=== PATIENT | female | born 1950 | race Caucasian/White ===

== ENCOUNTER 2021-03-12 | Inpatient (IN) ==
[2021-03-12] MEDS ORDERED: DEXTROSE 50% 25 GM/50 ML VIAL IV PRN (11:37)
[2021-03-12] MEDS ORDERED: GLUCAGON 1 MG VIAL IM PRN (11:37)
[2021-03-12] MEDS ORDERED: CLORAZEPATE 3.75 MG TABLET PO PRN (11:41)
[2021-03-12] MEDS ORDERED: MORPHINE 2 MG/1 ML SYRINGE IV PRN (11:42)
[2021-03-12] MEDS ORDERED: NITROGLYCERIN SL 0.4 MG TABLET SL PRN (11:42)
[2021-03-12 15:13] LABS: Albumin 2.9 G/DL (3.4-5.0); Bilirubin,Total 1.1 MG/DL (0.20-1.00); Calcium 9.1 MG/DL (8.5-10.1); Osmolality,Calculated 283.3 MOS/KG (273-304); Potassium 3.9 MMOL/L (3.5-5.1); Total Protein 7.3 G/DL (6.4-8.2)
[2021-03-12 15:16] LABS: Basophils # 0.1 10*3/uL (0.0-0.2); Eosinophils # 0.4 10*3/uL (0.0-0.87); Eosinophils % 3.5 % (0.00-10.9); Hematocrit 40.5 VOL% (35.7-47.0); Hemoglobin 12.1 GM/DL (12.0-16.0); Immature Granulocytes % 0.3 %; Immature Granulocytes Absolute 0.03 #; Lymphocytes # 1.5 10*3/uL (1.4-4.0); Lymphocytes % 15.5 % (21.3-54.2); Mean Corpuscular HGB Conc 29.9 GM/DL (32-36); Mean Corpuscular Volume 97.1 FL (87-102); Mean Platelet Volume 11.8 FL (9.6-12.0); Monocytes % 5.8 % (1.7-12.7); Neutrophils % 73.9 % (38.7-73.9); Platelet Count 262 T/CUMM (130-400); Red Blood Count 4.17 MC/CUMM (3.8-5.5); Red Cell Distribution Width 15.1 % (9.3-17.3); White Blood Count 9.9 T/CUMM (4-12)
[2021-03-12 15:58] LABS: ABG Base Excess 11.5 MMOL/L (-2.5-2.5); ABG HCO3 35.2 MMOL/L (20-26); ABG Oxygen Saturation 92.4 % (95-100); ABG PCO2 59.8 MM HG (35-48); ABG PH 7.418 (7.35-7.45); ABG PO2 64.3 MM HG (80-95); ABG TCO2 34.5 MMOL/L (23-27)
[2021-03-12] MEDS: CHLORHEXIDINE 4% SOLN 118 ML BOTTLE TOP SCH ×5 (16:50→21:40)
[2021-03-12] MEDS ORDERED: SODIUM CHLORIDE 0.9% 1,000 ML IV SCH (17:00)
[2021-03-12] MEDS: CHLORHEXIDINE 0.12% ORAL RINSE 60 ML BOTTLE SWISH/SPIT SCH (20:35)
[2021-03-13] MEDS ORDERED: VANCOMYCIN 1,000 MG VIAL ONE (04:17)
[2021-03-13] MEDS ORDERED: PAPAVERINE 60 MG/2 ML VIAL ONE (04:17)
[2021-03-13] MEDS ORDERED: VANCOMYCIN 500 MG VIAL ONE (04:17)
[2021-03-13] MEDS: CHLORHEXIDINE 0.12% ORAL RINSE 60 ML BOTTLE SWISH/SPIT SCH ×3 (04:50→21:35)
[2021-03-13] MEDS ORDERED: CEFUROXIME INJ 1,500 MG in SODIUM CHLORIDE 0.9% 100 ML IV ONE (05:00)
[2021-03-13] MEDS ORDERED: DIAZEPAM 5 MG TABLET PO ONE (05:00)
[2021-03-13] MEDS ORDERED: PANTOPRAZOLE 40 MG TABLET PO ONE (05:00)
[2021-03-13] MEDS ORDERED: ETOMIDATE 40 MG/20 ML VIAL IV ONE (05:20)
[2021-03-13] MEDS ORDERED: CALCIUM CHLORIDE 1,000 MG/10 ML VIAL IV ONE ×2 (05:20→11:22)
[2021-03-13] MEDS ORDERED: LIDOCAINE 2% 5 ML VIAL ONE ×2 (05:20→11:25)
[2021-03-13] MEDS ORDERED: MIDAZOLAM 10 MG/2 ML VIAL ONE ×3 (05:21)
[2021-03-13] MEDS ORDERED: SUFentanil 250 MCG/5 ML AMP ONE (05:21)
[2021-03-13] MEDS ORDERED: VECURONIUM 10 MG VIAL IV ONE (05:22)
[2021-03-13] MEDS ORDERED: ePHEDrine 50 MG/ML VIAL ONE (05:43)
[2021-03-13] MEDS ORDERED: SODIUM CHLORIDE 0.9% 1,000 ML IV ONE (05:45)
[2021-03-13] MEDS ORDERED: SEVOFLURANE 1 UNIT/15 MINUTE INH ONE (05:45)
[2021-03-13] MEDS ORDERED: MINERAL OIL/PETROLATUM OPH OINT 3.5 GM TUBE ONE (05:45)
[2021-03-13] MEDS ORDERED: HEPARIN/NACL 0.9% 2 UNITS/ML 1,000 UNIT/500 ML BAG IV ONE (05:45)
[2021-03-13] MEDS ORDERED: PHENYLEPHRINE 10 MG/1 ML VIAL IV ONE (05:45)
[2021-03-13] MEDS ORDERED: LACTATED RINGERS 1,000 ML IV ONE (05:45)
[2021-03-13] MEDS ORDERED: NITROGLYCERIN DRIP 50 MG/250 ML BOTTLE IV ONE (05:45)
[2021-03-13] MEDS ORDERED: SODIUM CHLORIDE 0.9% 250 ML IV ONE (05:45)
[2021-03-13 07:52] LABS: ABG Base Excess 10.9 MMOL/L (-2.5-2.5); ABG HCO3 34.7 MMOL/L (20-26); ABG Oxygen Saturation 99.8 % (95-100); ABG PCO2 47.6 MM HG (35-48); ABG PH 7.486 (7.35-7.45); ABG TCO2 32.3 MMOL/L (23-27); Glucose Heart Surgery 125 MG/DL (74-106); Hematocrit Heart Surgery 32.1 PERCENT (37-47); Hemoglobin Heart Surgery 10.4 G/DL (12.0-16.0); Ionized Calcium Arterial 1.15 MMOL/L (1.21-1.46); PCO2 Patient Temp Arterial 47.6 MMHG; PH Patient Temp Arterial 7.486; Patient Temperature 37 CELCIUS; Potassium Heart/CVR 3.9 MMOL/L (3.5-5.1); Sodium Heart/CVR 140 MMOL/L (135-145)
[2021-03-13 08:04] LABS: Bacteria,Urine Occasional /HPF (Few); Bilirubin,Urine Negative (Negative); Blood, Urine Moderate mg/dL (Negative); Glucose,Urine (UA) Negative (Negative); Ketones,Urine Negative (Negative); Mucus,Urine Occasional /LPF (Occasional); Nitrite,Urine Negative (Negative); Protein,Urine Negative; RBC,Urine 3 /HPF (0-4); Squamous Epithelial Cell,Urine Occasional /HPF (0-10); Urine Appearance CLEAR (Clear); Urine Color Yellow (Yellow); Urine Specific Gravity 1.012 (1.001-1.035); Urine Urobilinogen < 2.0 EU/DL (0.2-1.0)
[2021-03-13] MEDS ORDERED: ALBUTEROL 2.5 MG/3 ML NEB RESP TX ONE ×2 (08:17→10:58)
[2021-03-13] MEDS ORDERED: ALBUMIN 5% 25.0 GM/500 ML VIAL IV ONE (08:50)
[2021-03-13] MEDS ORDERED: POTASSIUM CHLORIDE RIDER 20 MEQ/100 ML PREMIX IV ONE (08:50)
[2021-03-13] MEDS ORDERED: PHENYLEPHRINE DRIP 40 MG/250 ML PREMIX IV ONE (08:50)
[2021-03-13 09:33] LABS: Hemoglobin Heart Surgery 7.5 G/DL (12.0-16.0); PCO2 Patient Temp Venous 38.3 MM HG; PH Patient Temp Venous 7.55; PO2 Patient Temp Venous 30.6 MM HG; Potassium Heart/CVR 3.4 MMOL/L (3.5-5.1); VBG Base Excess 9.6 MEQ/L (0-4); VBG HCO3 33.6 MEQ/L (24-28); VBG Oxygen Saturation 79.2 %; VBG PCO2 43.7 MMHG (41-51); VBG PH 7.504; VBG PO2 37.8 MMHG (17-40)
[2021-03-13 10:03] LABS: Hematocrit Heart Surgery 22.5 PERCENT (37-47); Hemoglobin Heart Surgery 7.2 G/DL (12.0-16.0); PCO2 Patient Temp Venous 35.7 MM HG; PH Patient Temp Venous 7.571; PO2 Patient Temp Venous 30.9 MM HG; Potassium Heart/CVR 3.1 MMOL/L (3.5-5.1); VBG Base Excess 10.3 MEQ/L (0-4); VBG HCO3 33.8 MEQ/L (24-28); VBG PCO2 41.3 MMHG (41-51); VBG PH 7.525; VBG PO2 38.2 MMHG (17-40); VBG Total CO2 32.2 MMOL/L
[2021-03-13 10:35] LABS: Hematocrit Heart Surgery 22.3 PERCENT (37-47); Hemoglobin Heart Surgery 7.1 G/DL (12.0-16.0); PCO2 Patient Temp Venous 41.5 MM HG; PH Patient Temp Venous 7.506; PO2 Patient Temp Venous 31.1 MM HG; VBG Base Excess 8.8 MEQ/L (0-4); VBG HCO3 32.2 MEQ/L (24-28); VBG Oxygen Saturation 66.3 %; VBG PCO2 41.5 MMHG (41-51); VBG PH 7.506; VBG PO2 31.1 MMHG (17-40)
[2021-03-13 11:17] LABS: ABG Base Excess 7.5 MMOL/L (-2.5-2.5); ABG HCO3 31.3 MMOL/L (20-26); ABG Oxygen Saturation 96.2 % (95-100); ABG PCO2 44.7 MM HG (35-48); ABG PH 7.464 (7.35-7.45); ABG PO2 75.1 MM HG (80-95); ABG TCO2 29.9 MMOL/L (23-27); Glucose Heart Surgery 331 MG/DL (74-106); Hematocrit Heart Surgery 24.5 PERCENT (37-47); Hemoglobin Heart Surgery 7.9 G/DL (12.0-16.0); PCO2 Patient Temp Arterial 44.7 MMHG; PH Patient Temp Arterial 7.464; PO2 Patient Temp Arterial 75.1 MM HG; Patient Temperature 37 CELCIUS; Potassium Heart/CVR 3.4 MMOL/L (3.5-5.1); Sodium Heart/CVR 136 MMOL/L (135-145)
[2021-03-13] MEDS ORDERED: DEXTROSE 50% 25 GM/50 ML SYRINGE IV ONE (11:24)
[2021-03-13] MEDS ORDERED: ALBUMIN 25% 25 GM/100 ML VIAL IV ONE (11:24)
[2021-03-13] MEDS ORDERED: HEPARIN 10,000 UNIT/10 ML VIAL ONE (11:25)
[2021-03-13] MEDS ORDERED: PROTAMINE SULFATE 250 MG/25 ML VIAL IV ONE (11:25)
[2021-03-13] MEDS ORDERED: MAGNESIUM SULFATE 5 GM/10 ML VIAL IV ONE (11:25)
[2021-03-13] MEDS ORDERED: methylPREDNISolone SOD SUC 1,000 MG/8 ML VIAL ONE (11:25)
[2021-03-13] MEDS ORDERED: MANNITOL 12.5 GM/50 ML VIAL IV ONE (11:25)
[2021-03-13] MEDS ORDERED: POTASSIUM CHLORIDE 20 MEQ/10 ML VIAL ONE (11:26)
[2021-03-13] MEDS ORDERED: PROTAMINE SULFATE 50 MG/5 ML VIAL IV ONE (11:26)
[2021-03-13] MEDS ORDERED: FUROSEMIDE 20 MG/2 ML VIAL ONE (11:26)
[2021-03-13] MEDS ORDERED: SODIUM BICARBONATE 50 MEQ/50 ML VIAL IV ONE (11:26)
[2021-03-13] MEDS: SODIUM CHLORIDE 0.45% 1,000 ML IV SCH ×2 (12:15)
[2021-03-13] MEDS: LACTATED RINGERS 1,000 ML IV PRN ×3 (12:30→18:25)
[2021-03-13] MEDS ORDERED: POTASSIUM CHLORIDE RIDER 10 MEQ/100 ML PREMIX IV PRN (12:33)
[2021-03-13] MEDS ORDERED: CALCIUM CHLORIDE 1,000 MG/10 ML SYRINGE IV PRN (12:33)
[2021-03-13] MEDS ORDERED: PHENYLEPHRINE DRIP 40 MG/250 ML PREMIX IV PRN (12:33)
[2021-03-13] MEDS ORDERED: MAGNESIUM SULF RIDER 2 GM/50 ML PREMIX IV PRN (12:33)
[2021-03-13] MEDS ORDERED: MIDAZOLAM 10 MG/2 ML VIAL IV PRN (12:33)
[2021-03-13] MEDS ORDERED: ACETAMINOPHEN 650 MG SUPP RECTAL PRN (12:33)
[2021-03-13] MEDS ORDERED: DEXTROSE 50% 25 GM/50 ML SYRINGE IV PRN ×2 (12:33)
[2021-03-13] MEDS ORDERED: VECURONIUM 10 MG VIAL IV PRN ×2 (12:33)
[2021-03-13] MEDS ORDERED: ONDANSETRON 4 MG/2 ML VIAL IV PRN (12:33)
[2021-03-13] MEDS ORDERED: INSULIN REGULAR 100 UNIT/ML IV ONE (12:33)
[2021-03-13] MEDS ORDERED: MIDAZOLAM 2 MG/2 ML VIAL IV PRN (12:33)
[2021-03-13] MEDS ORDERED: NITROPRUSSIDE 100 MG in DEXTROSE 5% 250 ML IV PRN (12:33)
[2021-03-13] MEDS ORDERED: LACTATED RINGERS 250 ML IV PRN (12:33)
[2021-03-13] MEDS ORDERED: ALBUMIN 5% 12.5 GM/250 ML VIAL IV PRN (12:33)
[2021-03-13] MEDS ORDERED: MAGNESIUM SULF RIDER 4 GM/100 ML PREMIX IV PRN (12:33)
[2021-03-13] MEDS ORDERED: CHLORHEXIDINE 4% SOLN 118 ML BOTTLE TOP PRN (12:33)
[2021-03-13] MEDS ORDERED: INSULIN REGULAR 100 UNIT/ML IV PRN (12:33)
[2021-03-13 12:36] LABS: ABG Base Excess 5.4 MMOL/L (-2.5-2.5); ABG HCO3 29.2 MMOL/L (20-26); ABG PCO2 49.3 MM HG (35-48); ABG PH 7.406 (7.35-7.45); ABG PO2 88.1 MM HG (80-95); ABG TCO2 28.4 MMOL/L (23-27); Glucose Heart Surgery 310 MG/DL (74-106); Hematocrit Heart Surgery 29.3 PERCENT (37-47); Hemoglobin Heart Surgery 9.5 G/DL (12.0-16.0); Potassium Heart/CVR 3.4 MMOL/L (3.5-5.1)
[2021-03-13 12:39] LABS: Basophils # 0.1 10*3/uL (0.0-0.2); Basophils % 0.3 % (0.0-0.8); Eosinophils % 0.2 % (0.00-10.9); Hematocrit 30.7 VOL% (35.7-47.0); Immature Granulocytes % 0.7 %; Immature Granulocytes Absolute 0.12 #; Lymphocytes # 0.9 10*3/uL (1.4-4.0); Lymphocytes % 4.9 % (21.3-54.2); Mean Corpuscular HGB Conc 30.3 GM/DL (32-36); Mean Corpuscular Volume 96.2 FL (87-102); Mean Platelet Volume 10.6 FL (9.6-12.0); Monocytes % 4.4 % (1.7-12.7); Neutrophils % 89.5 % (38.7-73.9); Platelet Count 224 T/CUMM (130-400); White Blood Count 17.6 T/CUMM (4-12)
[2021-03-13 12:40] LABS: Hemoglobin 9.3 GM/DL (12.0-16.0); Red Blood Count 3.19 MC/CUMM (3.8-5.5)
[2021-03-13] MEDS: POTASSIUM CHLORIDE RIDER 20 MEQ/100 ML PREMIX IV PRN ×3 (12:50→14:31)
[2021-03-13 12:54] LABS: CKMB % 9.4 %
[2021-03-13] MEDS: methylPREDNISolone SOD SUC 40 MG/1 ML VIAL IV SCH ×2 (12:54→21:36)
[2021-03-13 12:59] LABS: Albumin 2.7 G/DL (3.4-5.0); Bilirubin,Total 2.2 MG/DL (0.20-1.00); Calcium 9.5 MG/DL (8.5-10.1); High Sensitive Troponin I* 5445.3 ng/L (0-54); Osmolality,Calculated 291.4 MOS/KG (273-304); Potassium 3.5 MMOL/L (3.5-5.1); Total Protein 5.7 G/DL (6.4-8.2)
[2021-03-13 13:00] LABS: Band Neutrophils 8 % (0-10); Eosinophils 1 % (0-10); Lymphocytes 3 % (20-55); Segmented Neutrophils 84 % (50-85); Total Cells Counted 100
[2021-03-13 13:01] LABS: Anisocytosis Slight; Macrocytosis Slight; Microcytosis 1+; Platelet Estimate Normal; Polychromasia Few
[2021-03-13 13:13] LABS: INR 1.1; PT Patient Result 11.9 SECS (10.5-12.0); Partial Thromboplastin Time 23.4 SECS (23.8-32.1)
[2021-03-13 14:01] LABS: ABG Base Excess 3.4 MMOL/L (-2.5-2.5); ABG HCO3 27.5 MMOL/L (20-26); ABG Oxygen Saturation 99.4 % (95-100); ABG PCO2 49.5 MM HG (35-48); ABG PH 7.381 (7.35-7.45); ABG TCO2 26.7 MMOL/L (23-27); Glucose Heart Surgery 289 MG/DL (74-106); Hematocrit Heart Surgery 30.9 PERCENT (37-47); Potassium Heart/CVR 3.7 MMOL/L (3.5-5.1)
[2021-03-13] MEDS: INSULIN REGULAR DRIP 100 ML IV SCH (14:05)
[2021-03-13 17:02] LABS: ABG Base Excess 1.9 MMOL/L (-2.5-2.5); ABG HCO3 26.1 MMOL/L (20-26); ABG Oxygen Saturation 97.5 % (95-100); ABG PH 7.411 (7.35-7.45); ABG PO2 94.3 MM HG (80-95); ABG TCO2 24.3 MMOL/L (23-27); Glucose Heart Surgery 258 MG/DL (74-106); Potassium Heart/CVR 4.1 MMOL/L (3.5-5.1)
[2021-03-13] MEDS: DEXMEDETOMIDINE 200 MCG in SODIUM CHLORIDE 0.9% 48 ML IV PRN ×2 (17:10→19:29)
[2021-03-13] MEDS ORDERED: FUROSEMIDE 40 MG/4 ML VIAL ONE (18:18)
[2021-03-13] MEDS ORDERED: FUROSEMIDE 40 MG/4 ML VIAL IV ONE (18:22)
[2021-03-13 19:30] LABS: ABG Base Excess 4.3 MMOL/L (-2.5-2.5); ABG HCO3 28.3 MMOL/L (20-26); ABG Oxygen Saturation 94.6 % (95-100); ABG PCO2 38.8 MM HG (35-48); ABG PO2 68.2 MM HG (80-95); ABG TCO2 25.7 MMOL/L (23-27); Glucose Heart Surgery 240 MG/DL (74-106); Hemoglobin Heart Surgery 9.7 G/DL (12.0-16.0); Potassium Heart/CVR 4.1 MMOL/L (3.5-5.1)
[2021-03-13] MEDS: CEFUROXIME INJ 1,500 MG in SODIUM CHLORIDE 0.9% 100 ML IV SCH (19:37)
[2021-03-13 22:08] LABS: CKMB % 7.2 %
[2021-03-13 22:17] LABS: High Sensitive Troponin I* 10468.4 ng/L (0-54)
[2021-03-13 23:35] LABS: ABG Base Excess 7.8 MMOL/L (-2.5-2.5); ABG HCO3 31.5 MMOL/L (20-26); ABG Oxygen Saturation 93.3 % (95-100); ABG PCO2 37.1 MM HG (35-48); ABG PO2 60.6 MM HG (80-95); ABG TCO2 28.2 MMOL/L (23-27); Glucose Heart Surgery 185 MG/DL (74-106); Hematocrit Heart Surgery 29.5 PERCENT (37-47); Hemoglobin Heart Surgery 9.5 G/DL (12.0-16.0); Potassium Heart/CVR 4.1 MMOL/L (3.5-5.1)
[2021-03-14 01:02] LABS: ABG Base Excess 5.6 MMOL/L (-2.5-2.5); ABG HCO3 28.1 MMOL/L (20-26); ABG Oxygen Saturation 95.4 % (95-100); ABG PCO2 33.1 MM HG (35-48); ABG PH 7.547 (7.35-7.45); ABG PO2 70.1 MM HG (80-95); ABG TCO2 29.1 MMOL/L (23-27); Glucose Heart Surgery 162 MG/DL (74-106); Hemoglobin Heart Surgery 9.9 G/DL (12.0-16.0); Potassium Heart/CVR 4.1 MMOL/L (3.5-5.1)
[2021-03-14 03:26] LABS: ABG HCO3 29.4 MMOL/L (20-26); ABG Oxygen Saturation 95.8 % (95-100); ABG PCO2 38.1 MM HG (35-48); ABG PH 7.506 (7.35-7.45); ABG PO2 76.5 MM HG (80-95); ABG TCO2 30.6 MMOL/L (23-27); Glucose Heart Surgery 144 MG/DL (74-106); Hemoglobin Heart Surgery 10.8 G/DL (12.0-16.0); Potassium Heart/CVR 4.2 MMOL/L (3.5-5.1)
[2021-03-14 03:28] LABS: Basophils % 0.1 % (0.0-0.8); Hematocrit 32.6 VOL% (35.7-47.0); Hemoglobin 10.1 GM/DL (12.0-16.0); Immature Granulocytes % 0.4 %; Immature Granulocytes Absolute 0.07 #; Lymphocytes # 0.5 10*3/uL (1.4-4.0); Lymphocytes % 3.1 % (21.3-54.2); Mean Corpuscular Volume 93.1 FL (87-102); Mean Platelet Volume 11.3 FL (9.6-12.0); Monocytes % 2.8 % (1.7-12.7); Neutrophils % 93.6 % (38.7-73.9); Platelet Count 214 T/CUMM (130-400); Red Cell Distribution Width 15.9 % (9.3-17.3); White Blood Count 16.1 T/CUMM (4-12)
[2021-03-14 03:52] LABS: Albumin 2.9 G/DL (3.4-5.0); Bilirubin,Direct 0.3 MG/DL (0.0-0.20); Bilirubin,Total 1.6 MG/DL (0.20-1.00); CKMB % 5.7 %; Osmolality,Calculated 286.3 MOS/KG (273-304); Potassium 4.4 MMOL/L (3.5-5.1); Total Protein 5.8 G/DL (6.4-8.2)
[2021-03-14 04:05] LABS: High Sensitive Troponin I* 16418.2 ng/L (0-54)
[2021-03-14 04:27] LABS: Hypochromasia Slight; Lymphocytes 2 % (20-55); Microcytosis Slight; Platelet Estimate Adequate; Segmented Neutrophils 95 % (50-85); Total Cells Counted 100
[2021-03-14 04:31] LABS: ABG Base Excess 7.3 MMOL/L (-2.5-2.5); ABG HCO3 30.6 MMOL/L (20-26); ABG Oxygen Saturation 93.2 % (95-100); ABG PCO2 38.3 MM HG (35-48); ABG PO2 61.9 MM HG (80-95); ABG TCO2 31.7 MMOL/L (23-27); Glucose Heart Surgery 137 MG/DL (74-106); Hemoglobin Heart Surgery 10.8 G/DL (12.0-16.0); Potassium Heart/CVR 4.1 MMOL/L (3.5-5.1)
[2021-03-14 05:13] LABS: ABG Base Excess 8.4 MMOL/L (-2.5-2.5); ABG Oxygen Saturation 93.4 % (95-100); ABG PH 7.547 (7.35-7.45); ABG PO2 61.1 MM HG (80-95); ABG TCO2 28.1 MMOL/L (23-27); Glucose Heart Surgery 141 MG/DL (74-106); Hematocrit Heart Surgery 32.3 PERCENT (37-47); Hemoglobin Heart Surgery 10.5 G/DL (12.0-16.0); Potassium Heart/CVR 4.2 MMOL/L (3.5-5.1)
[2021-03-14] MEDS: methylPREDNISolone SOD SUC 40 MG/1 ML VIAL IV SCH ×3 (06:06→21:02)
[2021-03-14 06:36] LABS: ABG Base Excess 8.3 MMOL/L (-2.5-2.5); ABG Oxygen Saturation 96.5 % (95-100); ABG PCO2 37.9 MM HG (35-48); ABG PH 7.529 (7.35-7.45); ABG PO2 76.8 MM HG (80-95); ABG TCO2 28.4 MMOL/L (23-27); Glucose Heart Surgery 136 MG/DL (74-106); Hematocrit Heart Surgery 32.5 PERCENT (37-47); Hemoglobin Heart Surgery 10.5 G/DL (12.0-16.0); Potassium Heart/CVR 4.1 MMOL/L (3.5-5.1)
[2021-03-14] MEDS ORDERED: FUROSEMIDE 40 MG/4 ML VIAL IV ONE ×2 (07:39→18:43)
[2021-03-14] MEDS: HYDROmorphone 2 MG/1 ML VIAL IV PRN ×2 (08:26→16:15)
[2021-03-14] MEDS: CEFUROXIME INJ 1,500 MG in SODIUM CHLORIDE 0.9% 100 ML IV SCH ×2 (08:29→20:40)
[2021-03-14] MEDS: PANTOPRAZOLE 40 MG VIAL IV SCH (09:47)
[2021-03-14] MEDS: POTASSIUM CHLORIDE RIDER 20 MEQ/100 ML PREMIX IV PRN (09:47)
[2021-03-14] MEDS: carvediloL 3.125 MG TABLET PO SCH ×2 (09:47→22:54)
[2021-03-14] MEDS: ASPIRIN CHEW 81 MG TABLET PO SCH (09:50)
[2021-03-14] MEDS: CHLORHEXIDINE 0.12% ORAL RINSE 60 ML BOTTLE SWISH/SPIT SCH ×2 (09:50→21:01)
[2021-03-14 12:10] LABS: ABG Base Excess 7.1 MMOL/L (-2.5-2.5); ABG HCO3 30.8 MMOL/L (20-26); ABG Oxygen Saturation 92.4 % (95-100); ABG PO2 68.2 MM HG (80-95); ABG TCO2 29.4 MMOL/L (23-27); Glucose Heart Surgery 170 MG/DL (74-106); Hematocrit Heart Surgery 31.9 PERCENT (37-47); Hemoglobin Heart Surgery 10.3 G/DL (12.0-16.0)
[2021-03-14] MEDS: ALBUTEROL/IPRATROPIUM 3 ML NEB RESP TX SCH ×2 (13:18→18:17)
[2021-03-14] MEDS: INSULIN REGULAR DRIP 100 ML IV SCH (14:37)
[2021-03-14] MEDS: SODIUM CHLORIDE 0.45% 1,000 ML IV SCH ×2 (14:37)
[2021-03-14 15:36] LABS: CKMB % 5.4 %; High Sensitive Troponin I* 17373.2 ng/L (0-54)
[2021-03-14] MEDS: DEXMEDETOMIDINE 200 MCG in SODIUM CHLORIDE 0.9% 48 ML IV PRN (19:56)
[2021-03-14 20:51] LABS: ABG Base Excess 8.2 MMOL/L (-2.5-2.5); ABG HCO3 31.8 MMOL/L (20-26); ABG Oxygen Saturation 91.6 % (95-100); ABG PCO2 36.5 MM HG (35-48); ABG TCO2 28.1 MMOL/L (23-27); Glucose Heart Surgery 175 MG/DL (74-106); Hematocrit Heart Surgery 31.8 PERCENT (37-47); Hemoglobin Heart Surgery 10.3 G/DL (12.0-16.0); Potassium Heart/CVR 4.2 MMOL/L (3.5-5.1)
[2021-03-14] MEDS: INSULIN REGULAR 100 UNIT/ML SUBCUT SCH (21:01)
[2021-03-14] MEDS: ESCITALOPRAM 10 MG TABLET PO SCH (21:11)
[2021-03-14 23:26] LABS: ABG Base Excess 7.7 MMOL/L (-2.5-2.5); ABG HCO3 31.4 MMOL/L (20-26); ABG Oxygen Saturation 93.5 % (95-100); ABG PCO2 32.4 MM HG (35-48); ABG PH 7.572 (7.35-7.45); ABG PO2 64.6 MM HG (80-95); ABG TCO2 26.9 MMOL/L (23-27); Glucose Heart Surgery 178 MG/DL (74-106); Hematocrit Heart Surgery 32.1 PERCENT (37-47); Hemoglobin Heart Surgery 10.4 G/DL (12.0-16.0); Potassium Heart/CVR 4.6 MMOL/L (3.5-5.1)
[2021-03-15] MEDS: ALBUTEROL/IPRATROPIUM 3 ML NEB RESP TX SCH ×4 (00:14→19:40)
[2021-03-15] MEDS: INSULIN REGULAR 100 UNIT/ML SUBCUT SCH ×6 (00:51→21:06)
[2021-03-15 00:52] LABS: ABG Base Excess 7.3 MMOL/L (-2.5-2.5); ABG HCO3 31.1 MMOL/L (20-26); ABG Oxygen Saturation 95.4 % (95-100); ABG PCO2 42.1 MM HG (35-48); ABG PH 7.482 (7.35-7.45); ABG PO2 78.7 MM HG (80-95); ABG TCO2 28.4 MMOL/L (23-27); Glucose Heart Surgery 166 MG/DL (74-106); Hematocrit Heart Surgery 32.4 PERCENT (37-47); Hemoglobin Heart Surgery 10.5 G/DL (12.0-16.0); Potassium Heart/CVR 4.4 MMOL/L (3.5-5.1)
[2021-03-15 03:44] LABS: ABG Base Excess 7.1 MMOL/L (-2.5-2.5); ABG HCO3 30.9 MMOL/L (20-26); ABG Oxygen Saturation 95.4 % (95-100); ABG PCO2 46.5 MM HG (35-48); ABG PH 7.448 (7.35-7.45); ABG PO2 81.6 MM HG (80-95); ABG TCO2 29.1 MMOL/L (23-27); Basophils % 0.1 % (0.0-0.8); Glucose Heart Surgery 167 MG/DL (74-106); Hematocrit 31.6 VOL% (35.7-47.0); Hematocrit Heart Surgery 31.5 PERCENT (37-47); Hemoglobin Heart Surgery 10.2 G/DL (12.0-16.0); Immature Granulocytes % 0.7 %; Immature Granulocytes Absolute 0.14 #; Lymphocytes # 0.8 10*3/uL (1.4-4.0); Lymphocytes % 3.8 % (21.3-54.2); Mean Corpuscular HGB Conc 31.6 GM/DL (32-36); Mean Corpuscular Volume 92.4 FL (87-102); Mean Platelet Volume 11.9 FL (9.6-12.0); Monocytes % 4.5 % (1.7-12.7); Neutrophils % 90.9 % (38.7-73.9); Platelet Count 223 T/CUMM (130-400); Potassium Heart/CVR 4.4 MMOL/L (3.5-5.1); Red Blood Count 3.42 MC/CUMM (3.8-5.5); Red Cell Distribution Width 16.2 % (9.3-17.3); White Blood Count 20.5 T/CUMM (4-12)
[2021-03-15 04:00] LABS: Albumin 2.8 G/DL (3.4-5.0); Bilirubin,Direct 0.27 MG/DL (0.0-0.20); Bilirubin,Total 1.2 MG/DL (0.20-1.00); Calcium 8.9 MG/DL (8.5-10.1); Osmolality,Calculated 291.4 MOS/KG (273-304); Potassium 4.5 MMOL/L (3.5-5.1); Total Protein 6.3 G/DL (6.4-8.2)
[2021-03-15 04:06] LABS: Hypochromasia 1+; Lymphocytes 3 % (20-55); Microcytosis 1+; Platelet Estimate Adequate; Segmented Neutrophils 95 % (50-85); Total Cells Counted 100
[2021-03-15] MEDS: DEXMEDETOMIDINE 200 MCG in SODIUM CHLORIDE 0.9% 48 ML IV PRN ×2 (04:20→09:07)
[2021-03-15 04:41] LABS: ABG Base Excess 7.3 MMOL/L (-2.5-2.5); ABG HCO3 31.1 MMOL/L (20-26); ABG Oxygen Saturation 95.3 % (95-100); ABG PCO2 45.5 MM HG (35-48); ABG PH 7.457 (7.35-7.45); ABG PO2 79.5 MM HG (80-95); Glucose Heart Surgery 166 MG/DL (74-106); Hematocrit Heart Surgery 31.7 PERCENT (37-47); Hemoglobin Heart Surgery 10.3 G/DL (12.0-16.0); Potassium Heart/CVR 4.6 MMOL/L (3.5-5.1)
[2021-03-15] MEDS: methylPREDNISolone SOD SUC 40 MG/1 ML VIAL IV SCH ×3 (04:50→21:06)
[2021-03-15 05:20] LABS: ABG Base Excess 7.5 MMOL/L (-2.5-2.5); ABG HCO3 31.8 MMOL/L (20-26); ABG Oxygen Saturation 93.8 % (95-100); ABG PCO2 43.8 MM HG (35-48); ABG PH 7.479 (7.35-7.45); ABG PO2 71.5 MM HG (80-95); ABG TCO2 33.2 MMOL/L (23-27); Glucose Heart Surgery 157 MG/DL (74-106); Hemoglobin Heart Surgery 10.7 G/DL (12.0-16.0); Potassium Heart/CVR 4.6 MMOL/L (3.5-5.1)
[2021-03-15] MEDS: ASPIRIN CHEW 81 MG TABLET PO SCH (08:00)
[2021-03-15] MEDS: AMITRIPTYLINE 10 MG TABLET PO SCH (08:01)
[2021-03-15] MEDS: PANTOPRAZOLE 40 MG VIAL IV SCH (08:01)
[2021-03-15] MEDS: carvediloL 3.125 MG TABLET PO SCH ×2 (08:02→21:23)
[2021-03-15] MEDS: CHLORHEXIDINE 0.12% ORAL RINSE 60 ML BOTTLE SWISH/SPIT SCH ×2 (08:02→21:07)
[2021-03-15 10:28] LABS: ABG Base Excess 6.7 MMOL/L (-2.5-2.5); ABG HCO3 30.4 MMOL/L (20-26); ABG Oxygen Saturation 92.6 % (95-100); ABG PCO2 49.7 MM HG (35-48); ABG PO2 71.6 MM HG (80-95); ABG TCO2 29.3 MMOL/L (23-27); Glucose Heart Surgery 159 MG/DL (74-106); Hematocrit Heart Surgery 31.1 PERCENT (37-47); Hemoglobin Heart Surgery 10.1 G/DL (12.0-16.0); Potassium Heart/CVR 4.5 MMOL/L (3.5-5.1)
[2021-03-15] MEDS: SODIUM CHLORIDE 0.45% 1,000 ML IV SCH ×4 (10:31→12:24)
[2021-03-15] MEDS: ESCITALOPRAM 10 MG TABLET PO SCH (21:07)
[2021-03-16] MEDS: INSULIN REGULAR 100 UNIT/ML SUBCUT SCH ×7 (00:08→23:40)
[2021-03-16] MEDS: ALBUTEROL/IPRATROPIUM 3 ML NEB RESP TX SCH ×4 (00:32→19:40)
[2021-03-16 05:01] LABS: Basophils % 0.1 % (0.0-0.8); Hematocrit 32.5 VOL% (35.7-47.0); Hemoglobin 10.2 GM/DL (12.0-16.0); Immature Granulocytes % 0.9 %; Immature Granulocytes Absolute 0.18 #; Lymphocytes # 0.9 10*3/uL (1.4-4.0); Lymphocytes % 4.5 % (21.3-54.2); Mean Corpuscular HGB Conc 31.4 GM/DL (32-36); Mean Corpuscular Volume 94.8 FL (87-102); Mean Platelet Volume 12.1 FL (9.6-12.0); Monocytes % 4.2 % (1.7-12.7); NRBC # 0.04 10*3/uL; Neutrophils % 90.3 % (38.7-73.9); Platelet Count 215 T/CUMM (130-400); Red Blood Count 3.43 MC/CUMM (3.8-5.5); Red Cell Distribution Width 15.6 % (9.3-17.3); White Blood Count 19.5 T/CUMM (4-12)
[2021-03-16] MEDS: methylPREDNISolone SOD SUC 40 MG/1 ML VIAL IV SCH (05:03)
[2021-03-16 05:18] LABS: Albumin 2.9 G/DL (3.4-5.0); Bilirubin,Direct 0.26 MG/DL (0.0-0.20); Bilirubin,Total 1.6 MG/DL (0.20-1.00); Calcium 8.9 MG/DL (8.5-10.1); Potassium 4.4 MMOL/L (3.5-5.1); Total Protein 6.5 G/DL (6.4-8.2)
[2021-03-16 05:20] LABS: Lymphocytes 5 % (20-55); Platelet Estimate Normal; Segmented Neutrophils 94 % (50-85); Total Cells Counted 100
[2021-03-16 05:21] LABS: Anisocytosis Slight; Microcytosis Slight
[2021-03-16 05:22] LABS: Polychromasia Few; Stomatocytes Slight
[2021-03-16] MEDS ORDERED: CLORAZEPATE 3.75 MG TABLET PO PRN (07:32)
[2021-03-16] MEDS: AMITRIPTYLINE 10 MG TABLET PO SCH (08:08)
[2021-03-16] MEDS: ASPIRIN CHEW 81 MG TABLET PO SCH (08:08)
[2021-03-16] MEDS: carvediloL 3.125 MG TABLET PO SCH ×2 (08:08→20:16)
[2021-03-16] MEDS: PANTOPRAZOLE 40 MG VIAL IV SCH (08:09)
[2021-03-16] MEDS: CHLORHEXIDINE 0.12% ORAL RINSE 60 ML BOTTLE SWISH/SPIT SCH ×2 (08:10→20:16)
[2021-03-16] MEDS: SODIUM CHLORIDE 0.45% 1,000 ML IV SCH ×2 (11:32)
[2021-03-16] MEDS: ESCITALOPRAM 10 MG TABLET PO SCH (20:16)
[2021-03-17] MEDS: ALBUTEROL/IPRATROPIUM 3 ML NEB RESP TX SCH ×4 (07:48→19:25)
[2021-03-17 13:27] LABS: Basophils % 0.1 % (0.0-0.8); Eosinophils # 0.1 10*3/uL (0.0-0.87); Eosinophils % 0.5 % (0.00-10.9); Hemoglobin 9.8 GM/DL (12.0-16.0); Immature Granulocytes % 0.7 %; Immature Granulocytes Absolute 0.11 #; Lymphocytes # 2.5 10*3/uL (1.4-4.0); Lymphocytes % 16.6 % (21.3-54.2); Mean Corpuscular HGB Conc 29.7 GM/DL (32-36); Mean Corpuscular Volume 96.8 FL (87-102); Mean Platelet Volume 12.3 FL (9.6-12.0); Monocytes % 7.3 % (1.7-12.7); NRBC # 0.04 10*3/uL; Neutrophils % 74.8 % (38.7-73.9); Platelet Count 234 T/CUMM (130-400); Red Blood Count 3.41 MC/CUMM (3.8-5.5); Red Cell Distribution Width 15.3 % (9.3-17.3)
[2021-03-17] MEDS: INSULIN REGULAR 100 UNIT/ML SUBCUT SCH ×2 (13:36→13:37)
[2021-03-17] MEDS: PANTOPRAZOLE 40 MG VIAL IV SCH (13:37)
[2021-03-17] MEDS: ASPIRIN CHEW 81 MG TABLET PO SCH (13:37)
[2021-03-17] MEDS: AMITRIPTYLINE 10 MG TABLET PO SCH (13:37)
[2021-03-17] MEDS: CHLORHEXIDINE 0.12% ORAL RINSE 60 ML BOTTLE SWISH/SPIT SCH ×2 (13:37→20:03)
[2021-03-17] MEDS: carvediloL 3.125 MG TABLET PO SCH (13:37)
[2021-03-17] MEDS: AMIODARONE 200 MG TABLET PO SCH ×2 (13:38→20:02)
[2021-03-17] MEDS: SODIUM CHLORIDE 0.45% 1,000 ML IV SCH ×2 (13:38→13:39)
[2021-03-17] MEDS ORDERED: ZALEPLON 5 MG CAPSULE PO PRN (14:31)
[2021-03-17] MEDS ORDERED: ONDANSETRON 4 MG/2 ML VIAL IV PRN (14:31)
[2021-03-17] MEDS ORDERED: MAGNESIUM HYDROXIDE SUSP 30 ML UDCUP PO PRN (14:31)
[2021-03-17] MEDS ORDERED: MAGNESIUM SULF RIDER 4 GM/100 ML PREMIX IV PRN (14:31)
[2021-03-17] MEDS ORDERED: GLUCAGON 1 MG VIAL IM PRN (14:31)
[2021-03-17] MEDS ORDERED: MAGNESIUM SULF RIDER 2 GM/50 ML PREMIX IV PRN (14:31)
[2021-03-17] MEDS ORDERED: ALUMINUM/MAGNES/SIMETH MAX STR 30 ML UDCUP PO PRN (14:31)
[2021-03-17] MEDS ORDERED: ACETAMINOPHEN 325 MG TABLET PO PRN (14:31)
[2021-03-17] MEDS ORDERED: POTASSIUM CHLORIDE 20 MEQ TABLET PO PRN (14:31)
[2021-03-17] MEDS ORDERED: SODIUM CHLOR 0.45% KCL 20 MEQ 20 MEQ/1,000 ML BAG IV SCH (14:31)
[2021-03-17] MEDS ORDERED: DEXTROSE 50% 25 GM/50 ML SYRINGE IV PRN (14:50)
[2021-03-17 16:04] LABS: Calcium 8.3 MG/DL (8.5-10.1); Osmolality,Calculated 285.7 MOS/KG (273-304); Potassium 3.8 MMOL/L (3.5-5.1)
[2021-03-17] MEDS: ESCITALOPRAM 10 MG TABLET PO SCH (20:02)
[2021-03-18] MEDS: ALBUTEROL/IPRATROPIUM 3 ML NEB RESP TX SCH ×4 (01:04→19:52)
[2021-03-18 04:27] LABS: Basophils % 0.2 % (0.0-0.8); Eosinophils # 0.4 10*3/uL (0.0-0.87); Hemoglobin 9.8 GM/DL (12.0-16.0); Immature Granulocytes % 0.8 %; Immature Granulocytes Absolute 0.09 #; Lymphocytes # 1.6 10*3/uL (1.4-4.0); Lymphocytes % 13.5 % (21.3-54.2); Mean Corpuscular HGB Conc 29.7 GM/DL (32-36); Mean Corpuscular Volume 97.3 FL (87-102); Mean Platelet Volume 11.9 FL (9.6-12.0); Monocytes % 9.9 % (1.7-12.7); Neutrophils % 72.6 % (38.7-73.9); Platelet Count 233 T/CUMM (130-400); Red Blood Count 3.39 MC/CUMM (3.8-5.5); Red Cell Distribution Width 15.2 % (9.3-17.3); White Blood Count 11.8 T/CUMM (4-12)
[2021-03-18 04:55] LABS: Alanine Aminotransferase 101 U/L (13-56); Albumin 2.3 G/DL (3.4-5.0); Alkaline Phosphatase 62 U/L (45-117); Aspartate Amino Transferase 37 U/L (0-37); Bilirubin,Indirect 0.5 MG/DL (0.0-1.0); Blood Urea Nitrogen 37 MG/DL (7-18); Calcium 8.1 MG/DL (8.5-10.1); Carbon Dioxide 31 MMOL/L (21-32); Estimated Glom Filtration Rate 73 ML/MIN; Glucose 118 MG/DL (74-106); Osmolality,Calculated 286.5 MOS/KG (273-304); Potassium 4.6 MMOL/L (3.5-5.1); Sodium 139 MMOL/L (136-145); Total Protein 5.5 G/DL (6.4-8.2)
[2021-03-18] MEDS: LEVOTHYROXINE 50 MCG TABLET PO SCH (05:44)
[2021-03-18] MEDS ORDERED: FUROSEMIDE 40 MG/4 ML VIAL IV ONE (06:00)
[2021-03-18] MEDS: ASPIRIN CHEW 81 MG TABLET PO SCH (08:26)
[2021-03-18] MEDS: DOCUSATE SODIUM 100 MG CAPSULE PO SCH (08:27)
[2021-03-18] MEDS: AMITRIPTYLINE 10 MG TABLET PO SCH (08:27)
[2021-03-18] MEDS: AMIODARONE 200 MG TABLET PO SCH ×2 (08:27→20:11)
[2021-03-18] MEDS: FERROUS SULFATE 325 MG TABLET PO SCH (08:27)
[2021-03-18] MEDS: PANTOPRAZOLE 40 MG TABLET PO SCH (08:29)
[2021-03-18] MEDS: CHLORHEXIDINE 0.12% ORAL RINSE 60 ML BOTTLE SWISH/SPIT SCH ×2 (08:30→20:11)
[2021-03-18] MEDS ORDERED: hydrALAZINE 20 MG/1 ML VIAL IV ONE (16:40)
[2021-03-18] MEDS ORDERED: hydrALAZINE 20 MG/1 ML VIAL IV PRN (16:42)
[2021-03-18] MEDS: ESCITALOPRAM 10 MG TABLET PO SCH (20:11)
[2021-03-18] MEDS ORDERED: carvediloL 3.125 MG TABLET PO SCH (21:00)
[2021-03-19] MEDS: ALBUTEROL/IPRATROPIUM 3 ML NEB RESP TX SCH ×4 (01:28→20:13)
[2021-03-19 05:15] LABS: Basophils % 0.1 % (0.0-0.8); Eosinophils # 0.6 10*3/uL (0.0-0.87); Eosinophils % 3.7 % (0.00-10.9); Hematocrit 35.2 VOL% (35.7-47.0); Hemoglobin 10.7 GM/DL (12.0-16.0); Immature Granulocytes % 0.9 %; Immature Granulocytes Absolute 0.13 #; Lymphocytes # 1.4 10*3/uL (1.4-4.0); Lymphocytes % 9.4 % (21.3-54.2); Mean Corpuscular HGB Conc 30.4 GM/DL (32-36); Mean Corpuscular Volume 97.8 FL (87-102); Mean Platelet Volume 11.5 FL (9.6-12.0); Monocytes % 8.5 % (1.7-12.7); Neutrophils % 77.4 % (38.7-73.9); Platelet Count 274 T/CUMM (130-400); White Blood Count 14.7 T/CUMM (4-12)
[2021-03-19] MEDS: LEVOTHYROXINE 50 MCG TABLET PO SCH (05:37)
[2021-03-19 05:39] LABS: Alanine Aminotransferase 96 U/L (13-56); Albumin 2.3 G/DL (3.4-5.0); Alkaline Phosphatase 66 U/L (45-117); Aspartate Amino Transferase 25 U/L (0-37); Bilirubin,Indirect 0.8 MG/DL (0.0-1.0); Blood Urea Nitrogen 30 MG/DL (7-18); Calcium 8.2 MG/DL (8.5-10.1); Carbon Dioxide 31 MMOL/L (21-32); Estimated Glom Filtration Rate 83 ML/MIN; Glucose 118 MG/DL (74-106); Osmolality,Calculated 281.7 MOS/KG (273-304); Potassium 4.5 MMOL/L (3.5-5.1); Sodium 138 MMOL/L (136-145); Total Protein 5.7 G/DL (6.4-8.2)
[2021-03-19] MEDS: DOCUSATE SODIUM 100 MG CAPSULE PO SCH (09:37)
[2021-03-19] MEDS: AMITRIPTYLINE 10 MG TABLET PO SCH (09:37)
[2021-03-19] MEDS: ASPIRIN CHEW 81 MG TABLET PO SCH (09:38)
[2021-03-19] MEDS: METOPROLOL SUCCINATE XL 25 MG TABLET PO SCH (09:38)
[2021-03-19] MEDS: CHLORHEXIDINE 0.12% ORAL RINSE 60 ML BOTTLE SWISH/SPIT SCH ×2 (09:38→20:40)
[2021-03-19] MEDS: FERROUS SULFATE 325 MG TABLET PO SCH (09:38)
[2021-03-19] MEDS: PANTOPRAZOLE 40 MG TABLET PO SCH (09:38)
[2021-03-19] MEDS: FUROSEMIDE 40 MG TABLET PO SCH (09:38)
[2021-03-19] MEDS: AMIODARONE 200 MG TABLET PO SCH ×2 (09:38→20:36)
[2021-03-19] MEDS: SPIRONOLACTONE 25 MG TABLET PO SCH (09:38)
[2021-03-19] MEDS: ESCITALOPRAM 10 MG TABLET PO SCH (20:36)
[2021-03-20] MEDS: ALBUTEROL/IPRATROPIUM 3 ML NEB RESP TX SCH ×3 (00:37→13:39)
[2021-03-20 05:30] LABS: Basophils % 0.1 % (0.0-0.8); Eosinophils # 0.8 10*3/uL (0.0-0.87); Eosinophils % 4.7 % (0.00-10.9); Hematocrit 32.8 VOL% (35.7-47.0); Hemoglobin 10.1 GM/DL (12.0-16.0); Immature Granulocytes % 1.2 %; Immature Granulocytes Absolute 0.19 #; Lymphocytes # 1.6 10*3/uL (1.4-4.0); Lymphocytes % 9.7 % (21.3-54.2); Mean Corpuscular HGB Conc 30.8 GM/DL (32-36); Mean Corpuscular Volume 98.2 FL (87-102); Mean Platelet Volume 11.6 FL (9.6-12.0); Monocytes % 8.1 % (1.7-12.7); Neutrophils % 76.2 % (38.7-73.9); Platelet Count 286 T/CUMM (130-400); Red Blood Count 3.34 MC/CUMM (3.8-5.5); Red Cell Distribution Width 15.3 % (9.3-17.3)
[2021-03-20 05:47] LABS: Blood Urea Nitrogen 27 MG/DL (7-18); Calcium 8.4 MG/DL (8.5-10.1); Carbon Dioxide 33 MMOL/L (21-32); Estimated Glom Filtration Rate 83 ML/MIN; Glucose 98 MG/DL (74-106); Osmolality,Calculated 281.5 MOS/KG (273-304); Potassium 4.3 MMOL/L (3.5-5.1); Sodium 139 MMOL/L (136-145)
[2021-03-20] MEDS: LEVOTHYROXINE 50 MCG TABLET PO SCH (06:03)
[2021-03-20] MEDS: CHLORHEXIDINE 0.12% ORAL RINSE 60 ML BOTTLE SWISH/SPIT SCH ×2 (09:00→20:16)
[2021-03-20] MEDS: AMITRIPTYLINE 10 MG TABLET PO SCH (09:38)
[2021-03-20] MEDS: FUROSEMIDE 40 MG TABLET PO SCH (09:39)
[2021-03-20] MEDS: ASPIRIN CHEW 81 MG TABLET PO SCH (09:39)
[2021-03-20] MEDS: METOPROLOL SUCCINATE XL 25 MG TABLET PO SCH (09:40)
[2021-03-20] MEDS: DOCUSATE SODIUM 100 MG CAPSULE PO SCH (09:40)
[2021-03-20] MEDS: AMIODARONE 200 MG TABLET PO SCH ×2 (09:40→20:15)
[2021-03-20] MEDS: SPIRONOLACTONE 25 MG TABLET PO SCH (09:40)
[2021-03-20] MEDS: PANTOPRAZOLE 40 MG TABLET PO SCH (09:40)
[2021-03-20] MEDS: FERROUS SULFATE 325 MG TABLET PO SCH (10:16)
[2021-03-20] MEDS: ESCITALOPRAM 10 MG TABLET PO SCH (20:15)
[2021-03-21] MEDS: ALBUTEROL/IPRATROPIUM 3 ML NEB RESP TX SCH ×5 (01:58→20:00)
[2021-03-21] MEDS: LEVOTHYROXINE 50 MCG TABLET PO SCH (06:47)
[2021-03-21 07:13] LABS: Basophils % 0.1 % (0.0-0.8); Eosinophils # 0.7 10*3/uL (0.0-0.87); Eosinophils % 4.1 % (0.00-10.9); Hematocrit 34.2 VOL% (35.7-47.0); Hemoglobin 10.3 GM/DL (12.0-16.0); Immature Granulocytes % 1.7 %; Immature Granulocytes Absolute 0.26 #; Lymphocytes # 1.3 10*3/uL (1.4-4.0); Lymphocytes % 8.5 % (21.3-54.2); Mean Corpuscular HGB Conc 30.1 GM/DL (32-36); Mean Corpuscular Volume 96.9 FL (87-102); Mean Platelet Volume 11.3 FL (9.6-12.0); Monocytes % 8.3 % (1.7-12.7); Neutrophils % 77.3 % (38.7-73.9); Platelet Count 325 T/CUMM (130-400); Red Blood Count 3.53 MC/CUMM (3.8-5.5); Red Cell Distribution Width 15.4 % (9.3-17.3); White Blood Count 15.7 T/CUMM (4-12)
[2021-03-21 07:34] LABS: Alanine Aminotransferase 55 U/L (13-56); Albumin 2.2 G/DL (3.4-5.0); Alkaline Phosphatase 63 U/L (45-117); Aspartate Amino Transferase 13 U/L (0-37); Bilirubin,Indirect 0.7 MG/DL (0.0-1.0); Blood Urea Nitrogen 27 MG/DL (7-18); Calcium 8.6 MG/DL (8.5-10.1); Carbon Dioxide 32 MMOL/L (21-32); Estimated Glom Filtration Rate 73 ML/MIN; Glucose 110 MG/DL (74-106); Osmolality,Calculated 282.5 MOS/KG (273-304); Potassium 4.3 MMOL/L (3.5-5.1); Sodium 139 MMOL/L (136-145)
[2021-03-21] MEDS: PANTOPRAZOLE 40 MG TABLET PO SCH (09:32)
[2021-03-21] MEDS: ASPIRIN CHEW 81 MG TABLET PO SCH (09:32)
[2021-03-21] MEDS: DOCUSATE SODIUM 100 MG CAPSULE PO SCH (09:32)
[2021-03-21] MEDS: FERROUS SULFATE 325 MG TABLET PO SCH (09:32)
[2021-03-21] MEDS: AMIODARONE 200 MG TABLET PO SCH ×2 (09:33→20:03)
[2021-03-21] MEDS: SPIRONOLACTONE 25 MG TABLET PO SCH (09:33)
[2021-03-21] MEDS: METOPROLOL SUCCINATE XL 25 MG TABLET PO SCH (09:33)
[2021-03-21] MEDS: FUROSEMIDE 40 MG TABLET PO SCH (09:33)
[2021-03-21] MEDS: AMITRIPTYLINE 10 MG TABLET PO SCH (09:34)
[2021-03-21] MEDS: CHLORHEXIDINE 0.12% ORAL RINSE 60 ML BOTTLE SWISH/SPIT SCH ×2 (09:35→20:05)
[2021-03-21] MEDS: ESCITALOPRAM 10 MG TABLET PO SCH (20:03)
[2021-03-22] MEDS: ALBUTEROL/IPRATROPIUM 3 ML NEB RESP TX SCH ×5 (01:39→20:16)
[2021-03-22] MEDS: LEVOTHYROXINE 50 MCG TABLET PO SCH (06:44)
[2021-03-22] MEDS ORDERED: AMIODARONE INJ 100 MG in DEXTROSE 5% 100 ML IV ONE (07:17)
[2021-03-22] MEDS ORDERED: DILTIAZEM 50 MG/10 ML VIAL IV ONE (07:18)
[2021-03-22 07:19] LABS: Basophils % 0.1 % (0.0-0.8); Eosinophils # 0.6 10*3/uL (0.0-0.87); Eosinophils % 4.6 % (0.00-10.9); Hematocrit 36.6 VOL% (35.7-47.0); Hemoglobin 10.9 GM/DL (12.0-16.0); Immature Granulocytes % 1.1 %; Immature Granulocytes Absolute 0.15 #; Lymphocytes # 1.4 10*3/uL (1.4-4.0); Lymphocytes % 9.9 % (21.3-54.2); Mean Corpuscular HGB Conc 29.8 GM/DL (32-36); Mean Corpuscular Volume 99.5 FL (87-102); Mean Platelet Volume 11.4 FL (9.6-12.0); Monocytes % 10.1 % (1.7-12.7); Neutrophils % 74.2 % (38.7-73.9); Platelet Count 327 T/CUMM (130-400); Red Blood Count 3.68 MC/CUMM (3.8-5.5); Red Cell Distribution Width 15.2 % (9.3-17.3); White Blood Count 13.6 T/CUMM (4-12)
[2021-03-22 08:05] LABS: Alanine Aminotransferase 51 U/L (13-56); Albumin 2.4 G/DL (3.4-5.0); Alkaline Phosphatase 66 U/L (45-117); Aspartate Amino Transferase 19 U/L (0-37); Bilirubin,Indirect 0.7 MG/DL (0.0-1.0); Blood Urea Nitrogen 29 MG/DL (7-18); Calcium 8.9 MG/DL (8.5-10.1); Carbon Dioxide 31 MMOL/L (21-32); Estimated Glom Filtration Rate 83 ML/MIN; Glucose 101 MG/DL (74-106); Osmolality,Calculated 286.3 MOS/KG (273-304); Potassium 4.2 MMOL/L (3.5-5.1); Sodium 141 MMOL/L (136-145); Total Protein 6.3 G/DL (6.4-8.2)
[2021-03-22] MEDS: DILTIAZEM INJ 100 MG in SODIUM CHLORIDE 0.9% 100 ML IV SCH ×2 (09:26→21:43)
[2021-03-22] MEDS: AMIODARONE 200 MG TABLET PO SCH ×2 (09:32→21:22)
[2021-03-22] MEDS: FUROSEMIDE 40 MG TABLET PO SCH (09:32)
[2021-03-22] MEDS: SPIRONOLACTONE 25 MG TABLET PO SCH (09:32)
[2021-03-22] MEDS: METOPROLOL SUCCINATE XL 25 MG TABLET PO SCH (09:32)
[2021-03-22] MEDS: FERROUS SULFATE 325 MG TABLET PO SCH (09:32)
[2021-03-22] MEDS: APIXABAN 5 MG TABLET PO SCH ×2 (09:32→21:22)
[2021-03-22] MEDS: AMITRIPTYLINE 10 MG TABLET PO SCH (09:32)
[2021-03-22] MEDS: PANTOPRAZOLE 40 MG TABLET PO SCH (09:32)
[2021-03-22] MEDS: DOCUSATE SODIUM 100 MG CAPSULE PO SCH (09:32)
[2021-03-22] MEDS: CHLORHEXIDINE 0.12% ORAL RINSE 60 ML BOTTLE SWISH/SPIT SCH ×2 (09:40→21:23)
[2021-03-22] MEDS: ASPIRIN EC 81 MG TABLET PO SCH (09:40)
[2021-03-22] MEDS: ESCITALOPRAM 10 MG TABLET PO SCH (21:22)
[2021-03-22] MEDS: ATORVASTATIN 80 MG TABLET PO SCH (21:22)
[2021-03-23] MEDS: ALBUTEROL/IPRATROPIUM 3 ML NEB RESP TX SCH ×4 (01:05→21:09)
[2021-03-23] MEDS: LEVOTHYROXINE 50 MCG TABLET PO SCH (05:56)
[2021-03-23] MEDS: DILTIAZEM INJ 100 MG in SODIUM CHLORIDE 0.9% 100 ML IV SCH (09:44)
[2021-03-23] MEDS: METOPROLOL SUCCINATE XL 25 MG TABLET PO SCH (09:46)
[2021-03-23] MEDS: FERROUS SULFATE 325 MG TABLET PO SCH (09:46)
[2021-03-23] MEDS: SPIRONOLACTONE 25 MG TABLET PO SCH (09:46)
[2021-03-23] MEDS: AMITRIPTYLINE 10 MG TABLET PO SCH (09:46)
[2021-03-23] MEDS: AMIODARONE 200 MG TABLET PO SCH ×2 (09:46→21:21)
[2021-03-23] MEDS: PANTOPRAZOLE 40 MG TABLET PO SCH (09:46)
[2021-03-23] MEDS: ASPIRIN EC 81 MG TABLET PO SCH (09:46)
[2021-03-23] MEDS: FUROSEMIDE 40 MG TABLET PO SCH (09:46)
[2021-03-23] MEDS: APIXABAN 5 MG TABLET PO SCH ×2 (09:46→21:21)
[2021-03-23] MEDS: DOCUSATE SODIUM 100 MG CAPSULE PO SCH (09:46)
[2021-03-23] MEDS: CHLORHEXIDINE 0.12% ORAL RINSE 60 ML BOTTLE SWISH/SPIT SCH ×2 (09:47→21:24)
[2021-03-23] MEDS: ESCITALOPRAM 10 MG TABLET PO SCH (21:21)
[2021-03-23] MEDS: ATORVASTATIN 80 MG TABLET PO SCH (21:21)
[2021-03-24] MEDS: ALBUTEROL/IPRATROPIUM 3 ML NEB RESP TX SCH ×4 (02:10→19:48)
[2021-03-24] MEDS: LEVOTHYROXINE 50 MCG TABLET PO SCH (07:01)
[2021-03-24 09:05] LABS: Calcium 8.9 MG/DL (8.5-10.1); Osmolality,Calculated 286.4 MOS/KG (273-304)
[2021-03-24 09:18] LABS: Basophils % 0.2 % (0.0-0.8); Eosinophils # 0.4 10*3/uL (0.0-0.87); Eosinophils % 3.1 % (0.00-10.9); Hematocrit 33.1 VOL% (35.7-47.0); Immature Granulocytes % 0.8 %; Immature Granulocytes Absolute 0.11 #; Lymphocytes # 1.5 10*3/uL (1.4-4.0); Lymphocytes % 10.9 % (21.3-54.2); Mean Corpuscular HGB Conc 29.6 GM/DL (32-36); Mean Corpuscular Volume 99.7 FL (87-102); Mean Platelet Volume 11.1 FL (9.6-12.0); Platelet Count 336 T/CUMM (130-400); Red Blood Count 3.32 MC/CUMM (3.8-5.5); Red Cell Distribution Width 15.4 % (9.3-17.3); White Blood Count 13.3 T/CUMM (4-12)
[2021-03-24] MEDS: SPIRONOLACTONE 25 MG TABLET PO SCH (09:18)
[2021-03-24] MEDS: FUROSEMIDE 40 MG TABLET PO SCH (09:18)
[2021-03-24] MEDS: AMIODARONE 200 MG TABLET PO SCH ×2 (09:18→20:31)
[2021-03-24] MEDS: APIXABAN 5 MG TABLET PO SCH ×2 (09:18→20:31)
[2021-03-24] MEDS: DOCUSATE SODIUM 100 MG CAPSULE PO SCH (09:18)
[2021-03-24] MEDS: ASPIRIN EC 81 MG TABLET PO SCH (09:18)
[2021-03-24] MEDS: FERROUS SULFATE 325 MG TABLET PO SCH (09:18)
[2021-03-24] MEDS: AMITRIPTYLINE 10 MG TABLET PO SCH (09:18)
[2021-03-24] MEDS: PANTOPRAZOLE 40 MG TABLET PO SCH (09:18)
[2021-03-24] MEDS: METOPROLOL SUCCINATE XL 25 MG TABLET PO SCH (09:19)
[2021-03-24] MEDS: CHLORHEXIDINE 0.12% ORAL RINSE 60 ML BOTTLE SWISH/SPIT SCH ×2 (09:19→20:32)
[2021-03-24 09:21] LABS: Hemoglobin 9.8 GM/DL (12.0-16.0)
[2021-03-24] MEDS: ATORVASTATIN 80 MG TABLET PO SCH (20:31)
[2021-03-24] MEDS: ESCITALOPRAM 10 MG TABLET PO SCH (20:52)
[2021-03-25] MEDS: ALBUTEROL/IPRATROPIUM 3 ML NEB RESP TX SCH ×4 (01:12→19:48)
[2021-03-25 04:13] LABS: Basophils % 0.3 % (0.0-0.8); Eosinophils # 0.4 10*3/uL (0.0-0.87); Eosinophils % 2.9 % (0.00-10.9); Hematocrit 29.4 VOL% (35.7-47.0); Hemoglobin 8.7 GM/DL (12.0-16.0); Immature Granulocytes % 0.6 %; Immature Granulocytes Absolute 0.08 #; Lymphocytes # 1.4 10*3/uL (1.4-4.0); Mean Corpuscular HGB Conc 29.6 GM/DL (32-36); Mean Platelet Volume 11.2 FL (9.6-12.0); Monocytes % 7.2 % (1.7-12.7); Platelet Count 317 T/CUMM (130-400); Red Blood Count 2.94 MC/CUMM (3.8-5.5); Red Cell Distribution Width 15.3 % (9.3-17.3)
[2021-03-25 04:31] LABS: Calcium 8.9 MG/DL (8.5-10.1); Osmolality,Calculated 283.5 MOS/KG (273-304); Potassium 3.8 MMOL/L (3.5-5.1)
[2021-03-25] MEDS: LEVOTHYROXINE 50 MCG TABLET PO SCH (05:49)
[2021-03-25] MEDS: DOCUSATE SODIUM 100 MG CAPSULE PO SCH (09:25)
[2021-03-25] MEDS: AMITRIPTYLINE 10 MG TABLET PO SCH (09:25)
[2021-03-25] MEDS: PANTOPRAZOLE 40 MG TABLET PO SCH (09:25)
[2021-03-25] MEDS: FERROUS SULFATE 325 MG TABLET PO SCH (09:25)
[2021-03-25] MEDS: ASPIRIN EC 81 MG TABLET PO SCH (09:25)
[2021-03-25] MEDS: SPIRONOLACTONE 25 MG TABLET PO SCH (09:25)
[2021-03-25] MEDS: APIXABAN 5 MG TABLET PO SCH ×2 (09:25→22:13)
[2021-03-25] MEDS: CHLORHEXIDINE 0.12% ORAL RINSE 60 ML BOTTLE SWISH/SPIT SCH ×2 (09:26→22:13)
[2021-03-25] MEDS: METOPROLOL SUCCINATE XL 25 MG TABLET PO SCH (09:26)
[2021-03-25] MEDS: AMIODARONE 200 MG TABLET PO SCH ×2 (09:26→22:12)
[2021-03-25] MEDS: FUROSEMIDE 40 MG TABLET PO SCH (09:26)
[2021-03-25] MEDS: ESCITALOPRAM 10 MG TABLET PO SCH (22:12)
[2021-03-25] MEDS: ATORVASTATIN 80 MG TABLET PO SCH (22:13)
[2021-03-26] MEDS: ALBUTEROL/IPRATROPIUM 3 ML NEB RESP TX SCH ×4 (01:52→20:00)
[2021-03-26] MEDS: LEVOTHYROXINE 50 MCG TABLET PO SCH (06:21)
[2021-03-26] MEDS: PANTOPRAZOLE 40 MG TABLET PO SCH (08:56)
[2021-03-26] MEDS: ASPIRIN EC 81 MG TABLET PO SCH (08:56)
[2021-03-26] MEDS: APIXABAN 5 MG TABLET PO SCH ×2 (08:56→20:59)
[2021-03-26] MEDS: DOCUSATE SODIUM 100 MG CAPSULE PO SCH (08:56)
[2021-03-26] MEDS: FERROUS SULFATE 325 MG TABLET PO SCH (08:57)
[2021-03-26] MEDS: AMITRIPTYLINE 10 MG TABLET PO SCH (08:57)
[2021-03-26] MEDS: METOPROLOL SUCCINATE XL 25 MG TABLET PO SCH (08:57)
[2021-03-26] MEDS: AMIODARONE 200 MG TABLET PO SCH ×2 (08:58→20:59)
[2021-03-26] MEDS: CHLORHEXIDINE 0.12% ORAL RINSE 60 ML BOTTLE SWISH/SPIT SCH ×2 (08:58→20:59)
[2021-03-26] MEDS: FUROSEMIDE 40 MG TABLET PO SCH (08:58)
[2021-03-26] MEDS: SPIRONOLACTONE 25 MG TABLET PO SCH (09:02)
[2021-03-26] MEDS: LEVOFLOXACIN 500 MG TABLET PO SCH (10:32)
[2021-03-26] MEDS: ESCITALOPRAM 10 MG TABLET PO SCH (20:59)
[2021-03-26] MEDS: ATORVASTATIN 80 MG TABLET PO SCH (20:59)
[2021-03-27] MEDS: ALBUTEROL/IPRATROPIUM 3 ML NEB RESP TX SCH ×2 (01:42→08:10)
[2021-03-27 04:36] LABS: Basophils % 0.1 % (0.0-0.8); Eosinophils # 0.3 10*3/uL (0.0-0.87); Eosinophils % 1.4 % (0.00-10.9); Hematocrit 29.9 VOL% (35.7-47.0); Hemoglobin 8.8 GM/DL (12.0-16.0); Immature Granulocytes % 0.6 %; Immature Granulocytes Absolute 0.11 #; Lymphocytes # 1.1 10*3/uL (1.4-4.0); Mean Corpuscular HGB Conc 29.4 GM/DL (32-36); Mean Corpuscular Volume 100.3 FL (87-102); Mean Platelet Volume 10.8 FL (9.6-12.0); Monocytes % 5.9 % (1.7-12.7); Platelet Count 279 T/CUMM (130-400); Red Blood Count 2.98 MC/CUMM (3.8-5.5); Red Cell Distribution Width 15.4 % (9.3-17.3); White Blood Count 17.5 T/CUMM (4-12)
[2021-03-27 05:00] LABS: Calcium 8.8 MG/DL (8.5-10.1); Osmolality,Calculated 280.5 MOS/KG (273-304)
[2021-03-27] MEDS: LEVOTHYROXINE 50 MCG TABLET PO SCH (06:02)
[2021-03-27 08:33] VITALS: BP 96/39
[2021-03-27] MEDS ORDERED: MAGNESIUM OXIDE 400 MG TABLET PO SCH (09:00)
[2021-03-27] MEDS: SPIRONOLACTONE 25 MG TABLET PO SCH (09:43)
[2021-03-27] MEDS: FERROUS SULFATE 325 MG TABLET PO SCH (09:43)
[2021-03-27] MEDS: APIXABAN 5 MG TABLET PO SCH (09:43)
[2021-03-27] MEDS: DOCUSATE SODIUM 100 MG CAPSULE PO SCH (09:43)
[2021-03-27] MEDS: ASPIRIN EC 81 MG TABLET PO SCH (09:43)
[2021-03-27] MEDS: PANTOPRAZOLE 40 MG TABLET PO SCH (09:44)
[2021-03-27] MEDS: METOPROLOL SUCCINATE XL 25 MG TABLET PO SCH (09:44)
[2021-03-27] MEDS: LEVOFLOXACIN 500 MG TABLET PO SCH (09:44)
[2021-03-27] MEDS: AMIODARONE 200 MG TABLET PO SCH (09:44)
[2021-03-27] MEDS: CHLORHEXIDINE 0.12% ORAL RINSE 60 ML BOTTLE SWISH/SPIT SCH (09:44)
[2021-03-27] MEDS: FUROSEMIDE 40 MG TABLET PO SCH (09:44)
[2021-03-27] MEDS: AMITRIPTYLINE 10 MG TABLET PO SCH (09:47)
[2021-03-27] MEDS ORDERED: INFLUENZA VIRUS VACCINE 0.5 ML SYRINGE IM ONE (12:06)
== END 2021-03-27 12:25 | disposition home health service (06) | DRG 236 ==
LOC: N.2E 13:58 → N.CVR 03-13 11:31 → N.ICU 03-15 13:23 → N.TELES 03-20 18:13

== ENCOUNTER 2021-04-01 14:09 | Inpatient (IN) ==
[2021-04-01 15:01] LABS: Basophils % 0.3 % (0.0-0.8); Eosinophils % 0.3 % (0.00-10.9); Hemoglobin 9.8 GM/DL (12.0-16.0); Immature Granulocytes % 0.8 %; Immature Granulocytes Absolute 0.08 #; Lymphocytes # 0.9 10*3/uL (1.4-4.0); Lymphocytes % 8.9 % (21.3-54.2); Mean Corpuscular Volume 104.2 FL (87-102); Mean Platelet Volume 10.9 FL (9.6-12.0); Monocytes % 7.1 % (1.7-12.7); NRBC # 0.03 10*3/uL; Neutrophils % 82.6 % (38.7-73.9); Platelet Count 303 T/CUMM (130-400); Red Blood Count 3.36 MC/CUMM (3.8-5.5); Red Cell Distribution Width 14.9 % (9.3-17.3); White Blood Count 10.3 T/CUMM (4-12)
[2021-04-01 15:20] LABS: Albumin 2.5 G/DL (3.4-5.0); Bilirubin,Total 0.5 MG/DL (0.20-1.00); Calcium 9.2 MG/DL (8.5-10.1); Osmolality,Calculated 287.3 MOS/KG (273-304); Potassium 4.2 MMOL/L (3.5-5.1); Total Protein 6.8 G/DL (6.4-8.2)
[2021-04-01 15:26] LABS: INR 1.2; PT Patient Result 13.2 SECS (10.5-12.0); Partial Thromboplastin Time 33.2 SECS (23.8-32.1)
[2021-04-01 15:27] LABS: ABG Base Excess 5.7 MMOL/L (-2.5-2.5); ABG HCO3 29.6 MMOL/L (20-26); ABG Oxygen Saturation 99.1 % (95-100); ABG TCO2 34.7 MMOL/L (23-27)
[2021-04-01 15:35] LABS: ABG PCO2 94.7 MM HG (35-48)
[2021-04-01] MEDS ORDERED: PIPERACILLIN/TAZOBACTAM 3,375 MG in SODIUM CHLORIDE 0.9% 100 ML IV STA (15:58)
[2021-04-01 16:19] LABS: Bacteria,Urine Occasional /HPF (Few); Bilirubin,Urine Negative (Negative); Blood, Urine Negative (Negative); Glucose,Urine (UA) Negative (Negative); Hyaline Casts,Urine 99 /LPF (0-3); Ketones,Urine Negative (Negative); Mucus,Urine Few /LPF (Occasional); Nitrite,Urine Negative (Negative); Protein,Urine 100 MG/DL; RBC,Urine 2 /HPF (0-4); Squamous Epithelial Cell,Urine Few /HPF (0-10); Urine Appearance Slightly Hazy (Clear); Urine Color Yellow (Yellow); Urine Specific Gravity 1.018 (1.001-1.035); Urine Urobilinogen < 2.0 EU/DL (<2.0)
[2021-04-01] MEDS ORDERED: guaiFENesin/DM ER 600-30 MG TABLET PO PRN (16:22)
[2021-04-01] MEDS ORDERED: hydrALAZINE 20 MG/1 ML VIAL IV PRN (16:22)
[2021-04-01] MEDS ORDERED: GLUCAGON 1 MG VIAL IM PRN (16:22)
[2021-04-01] MEDS ORDERED: ALBUTEROL/IPRATROPIUM 3 ML NEB RESP TX PRN (16:22)
[2021-04-01] MEDS ORDERED: FUROSEMIDE 40 MG/4 ML VIAL IV ONE (16:27)
[2021-04-01] MEDS ORDERED: DEXTROSE 50% 25 GM/50 ML SYRINGE IV PRN (16:29)
[2021-04-01 17:27] LABS: ABG Base Excess 6.5 MMOL/L (-2.5-2.5); ABG HCO3 30.3 MMOL/L (20-26); ABG Oxygen Saturation 99.2 % (95-100); ABG TCO2 35.8 MMOL/L (23-27)
[2021-04-01 17:36] LABS: ABG PH 7.191 (7.35-7.45)
[2021-04-01 17:37] LABS: ABG PCO2 99.7 MM HG (35-48)
[2021-04-01] MEDS ORDERED: ETOMIDATE 20 MG/10 ML VIAL IV ONE ×2 (17:42→17:49)
[2021-04-01] MEDS ORDERED: SUCCINYLCHOLINE 200 MG/10 ML VIAL ONE (17:43)
[2021-04-01] MEDS ORDERED: SUCCINYLCHOLINE 200 MG/10 ML VIAL IV ONE (17:52)
[2021-04-01] MEDS ORDERED: VANCOMYCIN INJ 1,000 MG in SODIUM CHLORIDE 0.9% 250 ML IV ONE (18:07)
[2021-04-01 18:34] LABS: ABG HCO3 33.9 MMOL/L (20-26); ABG PCO2 57.5 MM HG (35-48); ABG PH 7.389 (7.35-7.45); ABG TCO2 35.7 MMOL/L (23-27)
[2021-04-01] MEDS ORDERED: SODIUM CHLORIDE 0.9% 1,000 ML IV ONE (18:55)
[2021-04-01] MEDS ORDERED: NOREPINEPHRINE 8 MG in SODIUM CHLORIDE 0.9% 242 ML IV PRN (19:02)
[2021-04-01] MEDS ORDERED: MIDAZOLAM 100 MG in SODIUM CHLORIDE 0.9% 80 ML IV PRN (19:23)
[2021-04-01] MEDS ORDERED: MIDAZOLAM 2 MG/2 ML VIAL IV ONE (19:23)
[2021-04-01] MEDS ORDERED: MIDAZOLAM 10 MG/2 ML VIAL ONE (19:24)
[2021-04-01] MEDS: ALBUTEROL 2.5 MG/3 ML NEB RESP TX SCH (20:08)
[2021-04-01] MEDS: APIXABAN 5 MG TABLET PO SCH (20:31)
[2021-04-01] MEDS: MAGNESIUM OXIDE 400 MG TABLET PO SCH (20:31)
[2021-04-01] MEDS: ATORVASTATIN 80 MG TABLET PO SCH (20:31)
[2021-04-01] MEDS: AMIODARONE 200 MG TABLET PO SCH (20:32)
[2021-04-02] MEDS: ALBUTEROL 2.5 MG/3 ML NEB RESP TX SCH ×4 (00:06→19:20)
[2021-04-02] MEDS: PIPERACILLIN/TAZOBACTAM 3,375 MG in SODIUM CHLORIDE 0.9% 100 ML IV SCH ×3 (00:42→16:29)
[2021-04-02 03:15] LABS: Basophils % 0.4 % (0.0-0.8); Eosinophils # 0.1 10*3/uL (0.0-0.87); Eosinophils % 0.8 % (0.00-10.9); Hematocrit 28.2 VOL% (35.7-47.0); Hemoglobin 8.4 GM/DL (12.0-16.0); Immature Granulocytes % 0.4 %; Immature Granulocytes Absolute 0.04 #; Lymphocytes # 1.6 10*3/uL (1.4-4.0); Lymphocytes % 16.5 % (21.3-54.2); Mean Corpuscular HGB Conc 29.8 GM/DL (32-36); Mean Corpuscular Volume 98.9 FL (87-102); Mean Platelet Volume 10.4 FL (9.6-12.0); Monocytes % 8.9 % (1.7-12.7); NRBC # 0.02 10*3/uL; Platelet Count 245 T/CUMM (130-400); Red Blood Count 2.85 MC/CUMM (3.8-5.5); Red Cell Distribution Width 15.1 % (9.3-17.3); White Blood Count 9.9 T/CUMM (4-12)
[2021-04-02 03:42] LABS: Albumin 2.3 G/DL (3.4-5.0); Bilirubin,Total 0.8 MG/DL (0.20-1.00); Calcium 8.6 MG/DL (8.5-10.1); Osmolality,Calculated 285.3 MOS/KG (273-304); Potassium 3.8 MMOL/L (3.5-5.1); Total Protein 5.8 G/DL (6.4-8.2)
[2021-04-02 04:04] LABS: ABG Base Excess 11.2 MMOL/L (-2.5-2.5); ABG HCO3 34.3 MMOL/L (20-26); ABG Oxygen Saturation 96.6 % (95-100); ABG PCO2 38.6 MM HG (35-48); ABG PH 7.566 (7.35-7.45); ABG PO2 75.4 MM HG (80-95); ABG TCO2 35.4 MMOL/L (23-27)
[2021-04-02] MEDS: APIXABAN 5 MG TABLET PO SCH (10:00)
[2021-04-02] MEDS: ASPIRIN CHEW 81 MG TABLET PO SCH (10:00)
[2021-04-02] MEDS: FERROUS SULFATE 325 MG TABLET PO SCH (10:00)
[2021-04-02] MEDS: PANTOPRAZOLE 40 MG VIAL IV SCH (10:00)
[2021-04-02] MEDS: AMIODARONE 200 MG TABLET PO SCH ×2 (10:00→21:06)
[2021-04-02] MEDS: MAGNESIUM OXIDE 400 MG TABLET PO SCH ×2 (10:00→21:06)
[2021-04-02] MEDS: SPIRONOLACTONE 25 MG TABLET PO SCH (10:00)
[2021-04-02] MEDS: FUROSEMIDE 40 MG/4 ML VIAL IV SCH (10:01)
[2021-04-02] MEDS: METOPROLOL TARTRATE 25 MG TABLET PER TUBE SCH ×2 (11:05→20:57)
[2021-04-02] MEDS: INSULIN REGULAR 100 UNIT/ML SUBCUT SCH ×2 (11:56→17:40)
[2021-04-02] MEDS: ATORVASTATIN 80 MG TABLET PO SCH (21:06)
[2021-04-03] MEDS: INSULIN REGULAR 100 UNIT/ML SUBCUT SCH ×4 (00:07→18:18)
[2021-04-03] MEDS: ALBUTEROL 2.5 MG/3 ML NEB RESP TX SCH ×4 (00:48→19:17)
[2021-04-03] MEDS: PIPERACILLIN/TAZOBACTAM 3,375 MG in SODIUM CHLORIDE 0.9% 100 ML IV SCH ×2 (01:30→09:19)
[2021-04-03 04:14] LABS: ABG Base Excess 12.3 MMOL/L (-2.5-2.5); ABG HCO3 36.8 MMOL/L (20-26); ABG Oxygen Saturation 96.5 % (95-100); ABG PCO2 48.4 MM HG (35-48); ABG PH 7.499 (7.35-7.45); ABG PO2 82.1 MM HG (80-95); ABG TCO2 38.3 MMOL/L (23-27)
[2021-04-03 04:51] LABS: Basophils # 0.1 10*3/uL (0.0-0.2); Basophils % 0.8 % (0.0-0.8); Eosinophils # 0.2 10*3/uL (0.0-0.87); Eosinophils % 1.9 % (0.00-10.9); Hematocrit 27.1 VOL% (35.7-47.0); Hemoglobin 8.1 GM/DL (12.0-16.0); Immature Granulocytes % 0.5 %; Immature Granulocytes Absolute 0.04 #; Lymphocytes # 1.5 10*3/uL (1.4-4.0); Lymphocytes % 17.4 % (21.3-54.2); Mean Corpuscular HGB Conc 29.9 GM/DL (32-36); Mean Corpuscular Volume 97.8 FL (87-102); Mean Platelet Volume 10.1 FL (9.6-12.0); Monocytes % 9.4 % (1.7-12.7); Platelet Count 235 T/CUMM (130-400); Red Blood Count 2.77 MC/CUMM (3.8-5.5); Red Cell Distribution Width 16.2 % (9.3-17.3); White Blood Count 8.4 T/CUMM (4-12)
[2021-04-03 05:19] LABS: Albumin 2.2 G/DL (3.4-5.0); Bilirubin,Total 0.7 MG/DL (0.20-1.00); Calcium 8.8 MG/DL (8.5-10.1); Osmolality,Calculated 289.4 MOS/KG (273-304); Potassium 3.7 MMOL/L (3.5-5.1); Total Protein 5.8 G/DL (6.4-8.2)
[2021-04-03] MEDS: METOPROLOL TARTRATE 25 MG TABLET PER TUBE SCH ×2 (08:02→21:01)
[2021-04-03] MEDS: MAGNESIUM OXIDE 400 MG TABLET PO SCH ×2 (09:18→21:01)
[2021-04-03] MEDS: SPIRONOLACTONE 25 MG TABLET PO SCH (09:18)
[2021-04-03] MEDS: PANTOPRAZOLE 40 MG VIAL IV SCH (09:18)
[2021-04-03] MEDS: FUROSEMIDE 40 MG/4 ML VIAL IV SCH (09:19)
[2021-04-03] MEDS: AMIODARONE 200 MG TABLET PO SCH ×2 (09:19→21:01)
[2021-04-03] MEDS: FERROUS SULFATE 325 MG TABLET PO SCH (09:19)
[2021-04-03] MEDS: POTASSIUM PHOS/SOD PHOS POWDER 250 MG PACK PER TUBE SCH ×2 (09:29→13:14)
[2021-04-03] MEDS: FUROSEMIDE INJ 100 MG in SODIUM CHLORIDE 0.9% 90 ML IV SCH ×2 (14:23→22:56)
[2021-04-03] MEDS: DESITIN 4OZ/NYSTATIN 15 GRAM MIXTURE PASTE TOP SCH ×2 (14:23→21:01)
[2021-04-03] MEDS: cefTRIAXone 1,000 MG in SODIUM CHLORIDE 0.9% 100 ML IV SCH (18:17)
[2021-04-03] MEDS: ATORVASTATIN 80 MG TABLET PO SCH (21:01)
[2021-04-04] MEDS: ALBUTEROL 2.5 MG/3 ML NEB RESP TX SCH ×4 (00:24→20:36)
[2021-04-04 04:16] LABS: Basophils % 0.5 % (0.0-0.8); Eosinophils # 0.3 10*3/uL (0.0-0.87); Eosinophils % 3.4 % (0.00-10.9); Hematocrit 28.6 VOL% (35.7-47.0); Hemoglobin 8.6 GM/DL (12.0-16.0); Immature Granulocytes % 0.2 %; Immature Granulocytes Absolute 0.02 #; Lymphocytes # 1.3 10*3/uL (1.4-4.0); Lymphocytes % 15.2 % (21.3-54.2); Mean Corpuscular HGB Conc 30.1 GM/DL (32-36); Mean Corpuscular Volume 97.3 FL (87-102); Mean Platelet Volume 10.6 FL (9.6-12.0); Monocytes % 6.4 % (1.7-12.7); Neutrophils % 74.3 % (38.7-73.9); Platelet Count 257 T/CUMM (130-400); Red Blood Count 2.94 MC/CUMM (3.8-5.5); Red Cell Distribution Width 16.4 % (9.3-17.3); White Blood Count 8.4 T/CUMM (4-12)
[2021-04-04 04:47] LABS: Albumin 2.3 G/DL (3.4-5.0); Bilirubin,Total 0.6 MG/DL (0.20-1.00); Calcium 8.5 MG/DL (8.5-10.1); Potassium 3.9 MMOL/L (3.5-5.1); Total Protein 5.7 G/DL (6.4-8.2)
[2021-04-04 05:10] LABS: ABG Base Excess 12.9 MMOL/L (-2.5-2.5); ABG HCO3 36.6 MMOL/L (20-26); ABG Oxygen Saturation 93.8 % (95-100); ABG PCO2 49.6 MM HG (35-48); ABG PH 7.492 (7.35-7.45); ABG PO2 67.9 MM HG (80-95); ABG TCO2 35.1 MMOL/L (23-27)
[2021-04-04] MEDS: INSULIN REGULAR 100 UNIT/ML SUBCUT SCH ×4 (06:03→17:55)
[2021-04-04] MEDS: AMIODARONE 200 MG TABLET PO SCH ×2 (09:17→20:04)
[2021-04-04] MEDS: FERROUS SULFATE 325 MG TABLET PO SCH (09:17)
[2021-04-04] MEDS: PANTOPRAZOLE 40 MG VIAL IV SCH (09:18)
[2021-04-04] MEDS: MAGNESIUM OXIDE 400 MG TABLET PO SCH ×2 (09:18→20:03)
[2021-04-04] MEDS: METOPROLOL TARTRATE 25 MG TABLET PER TUBE SCH ×2 (09:18→20:04)
[2021-04-04] MEDS: DESITIN 4OZ/NYSTATIN 15 GRAM MIXTURE PASTE TOP SCH ×2 (09:19→20:04)
[2021-04-04] MEDS: FUROSEMIDE INJ 100 MG in SODIUM CHLORIDE 0.9% 90 ML IV SCH ×3 (09:27→19:27)
[2021-04-04] MEDS: cefTRIAXone 1,000 MG in SODIUM CHLORIDE 0.9% 100 ML IV SCH (17:21)
[2021-04-04] MEDS: ATORVASTATIN 80 MG TABLET PO SCH (20:04)
[2021-04-05] MEDS: INSULIN REGULAR 100 UNIT/ML SUBCUT SCH ×4 (00:27→17:13)
[2021-04-05] MEDS: ALBUTEROL 2.5 MG/3 ML NEB RESP TX SCH ×4 (00:30→19:50)
[2021-04-05] MEDS: FUROSEMIDE INJ 100 MG in SODIUM CHLORIDE 0.9% 90 ML IV SCH ×3 (06:48→16:50)
[2021-04-05] MEDS: FERROUS SULFATE 325 MG TABLET PO SCH (07:41)
[2021-04-05] MEDS: PANTOPRAZOLE 40 MG VIAL IV SCH (08:06)
[2021-04-05] MEDS: AMIODARONE 200 MG TABLET PO SCH ×2 (08:06→21:55)
[2021-04-05] MEDS: METOPROLOL TARTRATE 25 MG TABLET PER TUBE SCH ×2 (08:06→21:55)
[2021-04-05] MEDS: DESITIN 4OZ/NYSTATIN 15 GRAM MIXTURE PASTE TOP SCH ×2 (08:06→21:56)
[2021-04-05] MEDS: MAGNESIUM OXIDE 400 MG TABLET PO SCH ×2 (08:06→21:55)
[2021-04-05 09:17] LABS: Osmolality,Calculated 290.4 MOS/KG (273-304); Potassium 3.9 MMOL/L (3.5-5.1)
[2021-04-05] MEDS: ASPIRIN CHEW 81 MG TABLET PO SCH (09:23)
[2021-04-05] MEDS: APIXABAN 5 MG TABLET PO SCH ×2 (09:23→21:55)
[2021-04-05 09:37] LABS: ABG HCO3 38.8 MMOL/L (20-26); ABG Oxygen Saturation 90.4 % (95-100); ABG PCO2 51.1 MM HG (35-48); ABG PH 7.505 (7.35-7.45); ABG PO2 62.2 MM HG (80-95); Allen Test Positive; Pt O2 Delivery Device Ventilator
[2021-04-05 09:54] LABS: Basophils % 0.4 % (0.0-0.8); Eosinophils # 0.4 10*3/uL (0.0-0.87); Eosinophils % 4.3 % (0.00-10.9); Hematocrit 28.2 VOL% (35.7-47.0); Hemoglobin 8.6 GM/DL (12.0-16.0); Immature Granulocytes % 0.6 %; Immature Granulocytes Absolute 0.05 #; Lymphocytes # 1.3 10*3/uL (1.4-4.0); Lymphocytes % 15.4 % (21.3-54.2); Mean Corpuscular HGB Conc 30.5 GM/DL (32-36); Mean Corpuscular Volume 96.6 FL (87-102); Mean Platelet Volume 11.1 FL (9.6-12.0); Monocytes % 8.1 % (1.7-12.7); Neutrophils % 71.2 % (38.7-73.9); Platelet Count 261 T/CUMM (130-400); Red Blood Count 2.92 MC/CUMM (3.8-5.5); Red Cell Distribution Width 16.4 % (9.3-17.3); White Blood Count 8.4 T/CUMM (4-12)
[2021-04-05 10:49] LABS: Albumin 2.1 G/DL (3.4-5.0); Bilirubin,Total 0.6 MG/DL (0.20-1.00); Calcium 8.8 MG/DL (8.5-10.1); Osmolality,Calculated 293.3 MOS/KG (273-304); Potassium 3.9 MMOL/L (3.5-5.1); Total Protein 6.5 G/DL (6.4-8.2)
[2021-04-05] MEDS: cefTRIAXone 1,000 MG in SODIUM CHLORIDE 0.9% 100 ML IV SCH (16:44)
[2021-04-05] MEDS: levETIRAcetam 500 MG TABLET PO SCH (21:55)
[2021-04-05] MEDS: ATORVASTATIN 80 MG TABLET PO SCH (21:55)
[2021-04-06] MEDS: ALBUTEROL 2.5 MG/3 ML NEB RESP TX SCH ×4 (00:10→20:12)
[2021-04-06] MEDS: INSULIN REGULAR 100 UNIT/ML SUBCUT SCH ×4 (00:14→17:19)
[2021-04-06] MEDS: FUROSEMIDE INJ 100 MG in SODIUM CHLORIDE 0.9% 90 ML IV SCH (02:57)
[2021-04-06 04:22] LABS: Basophils % 0.4 % (0.0-0.8); Eosinophils # 0.5 10*3/uL (0.0-0.87); Eosinophils % 5.6 % (0.00-10.9); Hematocrit 30.5 VOL% (35.7-47.0); Immature Granulocytes % 0.3 %; Immature Granulocytes Absolute 0.03 #; Lymphocytes # 1.1 10*3/uL (1.4-4.0); Lymphocytes % 12.1 % (21.3-54.2); Mean Corpuscular HGB Conc 29.5 GM/DL (32-36); Mean Corpuscular Volume 97.8 FL (87-102); Monocytes % 9.4 % (1.7-12.7); Neutrophils % 72.2 % (38.7-73.9); Platelet Count 270 T/CUMM (130-400); Red Blood Count 3.12 MC/CUMM (3.8-5.5); White Blood Count 9.4 T/CUMM (4-12)
[2021-04-06 04:35] LABS: ABG Base Excess 13.8 MMOL/L (-2.5-2.5); ABG HCO3 37.6 MMOL/L (20-26); ABG PCO2 50.2 MM HG (35-48); ABG PH 7.497 (7.35-7.45); ABG PO2 65.4 MM HG (80-95); ABG TCO2 36.1 MMOL/L (23-27)
[2021-04-06 04:43] LABS: Calcium 8.9 MG/DL (8.5-10.1); Osmolality,Calculated 293.4 MOS/KG (273-304)
[2021-04-06] MEDS: PANTOPRAZOLE 40 MG VIAL IV SCH (09:42)
[2021-04-06] MEDS: METOPROLOL TARTRATE 25 MG TABLET PER TUBE SCH ×2 (09:43→21:58)
[2021-04-06] MEDS: levETIRAcetam 500 MG TABLET PO SCH ×2 (09:43→21:58)
[2021-04-06] MEDS: MAGNESIUM OXIDE 400 MG TABLET PO SCH ×2 (09:43→21:58)
[2021-04-06] MEDS: FERROUS SULFATE 325 MG TABLET PO SCH (09:43)
[2021-04-06] MEDS: ASPIRIN CHEW 81 MG TABLET PO SCH (09:43)
[2021-04-06] MEDS: AMIODARONE 200 MG TABLET PO SCH ×2 (09:44→21:59)
[2021-04-06] MEDS: APIXABAN 5 MG TABLET PO SCH ×2 (09:44→21:58)
[2021-04-06] MEDS: DESITIN 4OZ/NYSTATIN 15 GRAM MIXTURE PASTE TOP SCH ×2 (09:44→21:59)
[2021-04-06] MEDS: DORNASE ALFA 2.5 MG/2.5 ML VIAL RESP TX SCH ×2 (12:29→20:18)
[2021-04-06] MEDS: acetaZOLAMIDE 250 MG TABLET PO SCH ×2 (15:13→21:58)
[2021-04-06] MEDS: SPIRONOLACTONE 25 MG TABLET PO SCH (15:14)
[2021-04-06] MEDS: FUROSEMIDE 40 MG/4 ML VIAL IV SCH (15:14)
[2021-04-06] MEDS: cefTRIAXone 1,000 MG in SODIUM CHLORIDE 0.9% 100 ML IV SCH (17:36)
[2021-04-06] MEDS: ATORVASTATIN 80 MG TABLET PO SCH (21:58)
[2021-04-06] MEDS: DOCUSATE SODIUM 100 MG CAPSULE PO PRN (21:59)
[2021-04-07] MEDS: ALBUTEROL 2.5 MG/3 ML NEB RESP TX SCH ×4 (00:10→19:40)
[2021-04-07] MEDS: INSULIN REGULAR 100 UNIT/ML SUBCUT SCH ×5 (00:27→23:30)
[2021-04-07 04:00] LABS: ABG Base Excess 9.4 MMOL/L (-2.5-2.5); ABG HCO3 33.2 MMOL/L (20-26); ABG Oxygen Saturation 97.6 % (95-100); ABG PCO2 55.4 MM HG (35-48); ABG PH 7.416 (7.35-7.45); ABG TCO2 32.7 MMOL/L (23-27)
[2021-04-07 04:25] LABS: Basophils # 0.1 10*3/uL (0.0-0.2); Basophils % 0.5 % (0.0-0.8); Eosinophils # 0.7 10*3/uL (0.0-0.87); Eosinophils % 6.8 % (0.00-10.9); Hematocrit 30.2 VOL% (35.7-47.0); Hemoglobin 9.2 GM/DL (12.0-16.0); Immature Granulocytes % 0.3 %; Immature Granulocytes Absolute 0.03 #; Lymphocytes # 1.2 10*3/uL (1.4-4.0); Lymphocytes % 12.5 % (21.3-54.2); Mean Corpuscular HGB Conc 30.5 GM/DL (32-36); Mean Corpuscular Volume 97.4 FL (87-102); Mean Platelet Volume 10.9 FL (9.6-12.0); Monocytes % 10.7 % (1.7-12.7); Neutrophils % 69.2 % (38.7-73.9); Platelet Count 282 T/CUMM (130-400); Red Cell Distribution Width 15.9 % (9.3-17.3); White Blood Count 9.6 T/CUMM (4-12)
[2021-04-07 04:38] LABS: Calcium 9.1 MG/DL (8.5-10.1); Osmolality,Calculated 298.3 MOS/KG (273-304); Potassium 3.7 MMOL/L (3.5-5.1)
[2021-04-07] MEDS: DORNASE ALFA 2.5 MG/2.5 ML VIAL RESP TX SCH ×2 (07:36→19:40)
[2021-04-07] MEDS: PANTOPRAZOLE 40 MG VIAL IV SCH (09:00)
[2021-04-07] MEDS: acetaZOLAMIDE 250 MG TABLET PO SCH ×2 (09:01→20:41)
[2021-04-07] MEDS: MAGNESIUM OXIDE 400 MG TABLET PO SCH ×2 (09:01→20:41)
[2021-04-07] MEDS: FERROUS SULFATE 325 MG TABLET PO SCH (09:01)
[2021-04-07] MEDS: FUROSEMIDE 40 MG/4 ML VIAL IV SCH (09:01)
[2021-04-07] MEDS: SPIRONOLACTONE 25 MG TABLET PO SCH (09:01)
[2021-04-07] MEDS: DESITIN 4OZ/NYSTATIN 15 GRAM MIXTURE PASTE TOP SCH ×2 (09:02→20:42)
[2021-04-07] MEDS: METOPROLOL TARTRATE 25 MG TABLET PER TUBE SCH ×2 (09:02→20:42)
[2021-04-07] MEDS: ASPIRIN CHEW 81 MG TABLET PO SCH (09:02)
[2021-04-07] MEDS: levETIRAcetam 500 MG TABLET PO SCH (09:02)
[2021-04-07] MEDS: AMIODARONE 200 MG TABLET PO SCH ×2 (09:02→20:42)
[2021-04-07] MEDS: APIXABAN 5 MG TABLET PO SCH ×2 (09:05→20:42)
[2021-04-07 14:00] LABS: Basophils % 0.4 % (0.0-0.8); Eosinophils # 0.8 10*3/uL (0.0-0.87); Hematocrit 30.6 VOL% (35.7-47.0); Immature Granulocytes % 0.5 %; Immature Granulocytes Absolute 0.05 #; Lymphocytes # 1.1 10*3/uL (1.4-4.0); Lymphocytes % 11.2 % (21.3-54.2); Mean Corpuscular HGB Conc 29.4 GM/DL (32-36); Mean Corpuscular Volume 98.4 FL (87-102); Monocytes % 11.4 % (1.7-12.7); Neutrophils % 68.5 % (38.7-73.9); Platelet Count 272 T/CUMM (130-400); Red Blood Count 3.11 MC/CUMM (3.8-5.5); Red Cell Distribution Width 15.9 % (9.3-17.3); White Blood Count 9.8 T/CUMM (4-12)
[2021-04-07 14:24] LABS: INR 1.1; PT Patient Result 11.8 SECS (10.5-12.0)
[2021-04-07] MEDS: cefTRIAXone 1,000 MG in SODIUM CHLORIDE 0.9% 100 ML IV SCH (16:49)
[2021-04-07] MEDS: ATORVASTATIN 80 MG TABLET PO SCH (20:42)
[2021-04-08] MEDS: ALBUTEROL 2.5 MG/3 ML NEB RESP TX SCH ×4 (00:15→19:04)
[2021-04-08 04:30] LABS: ABG Base Excess 7.9 MMOL/L (-2.5-2.5); ABG HCO3 33.7 MMOL/L (20-26); ABG Oxygen Saturation 93.6 % (95-100); ABG PCO2 53.1 MM HG (35-48); ABG TCO2 35.3 MMOL/L (23-27)
[2021-04-08 04:31] LABS: Allen Test Positive; Pt O2 Delivery Device Ventilator
[2021-04-08 04:48] LABS: Basophils # 0.1 10*3/uL (0.0-0.2); Basophils % 0.5 % (0.0-0.8); Eosinophils # 0.8 10*3/uL (0.0-0.87); Eosinophils % 7.9 % (0.00-10.9); Hematocrit 31.6 VOL% (35.7-47.0); Hemoglobin 9.3 GM/DL (12.0-16.0); Immature Granulocytes % 0.5 %; Immature Granulocytes Absolute 0.05 #; Lymphocytes # 1.1 10*3/uL (1.4-4.0); Lymphocytes % 10.3 % (21.3-54.2); Mean Corpuscular HGB Conc 29.4 GM/DL (32-36); Mean Corpuscular Volume 98.4 FL (87-102); Mean Platelet Volume 11.3 FL (9.6-12.0); Monocytes % 11.3 % (1.7-12.7); Neutrophils % 69.5 % (38.7-73.9); Platelet Count 296 T/CUMM (130-400); Red Blood Count 3.21 MC/CUMM (3.8-5.5); Red Cell Distribution Width 15.4 % (9.3-17.3); White Blood Count 10.3 T/CUMM (4-12)
[2021-04-08 05:10] LABS: Osmolality,Calculated 292.7 MOS/KG (273-304); Potassium 3.9 MMOL/L (3.5-5.1)
[2021-04-08] MEDS: INSULIN REGULAR 100 UNIT/ML SUBCUT SCH ×4 (05:24→23:35)
[2021-04-08] MEDS: DORNASE ALFA 2.5 MG/2.5 ML VIAL RESP TX SCH ×3 (07:15→19:04)
[2021-04-08] MEDS: acetaZOLAMIDE 250 MG TABLET PO SCH ×2 (08:49→20:05)
[2021-04-08] MEDS: ASPIRIN CHEW 81 MG TABLET PO SCH (08:49)
[2021-04-08] MEDS: AMIODARONE 200 MG TABLET PO SCH ×2 (08:49→20:05)
[2021-04-08] MEDS: METOPROLOL TARTRATE 25 MG TABLET PER TUBE SCH ×2 (08:49→20:05)
[2021-04-08] MEDS: SPIRONOLACTONE 25 MG TABLET PO SCH (08:50)
[2021-04-08] MEDS: PANTOPRAZOLE 40 MG VIAL IV SCH ×2 (08:50→20:06)
[2021-04-08] MEDS: DESITIN 4OZ/NYSTATIN 15 GRAM MIXTURE PASTE TOP SCH ×2 (08:50→20:05)
[2021-04-08] MEDS: FERROUS SULFATE 325 MG TABLET PO SCH (08:50)
[2021-04-08 11:46] LABS: Hematocrit 28.9 VOL% (35.7-47.0); Hemoglobin 8.6 GM/DL (12.0-16.0)
[2021-04-08 11:57] LABS: PT Patient Result 11.6 SECS (10.5-12.0); Partial Thromboplastin Time 27.2 SECS (23.8-32.1)
[2021-04-08] MEDS: MAGNESIUM OXIDE 400 MG TABLET PO SCH ×2 (12:03→20:05)
[2021-04-08] MEDS: cefTRIAXone 1,000 MG in SODIUM CHLORIDE 0.9% 100 ML IV SCH (17:06)
[2021-04-08] MEDS ORDERED: SODIUM CHLORIDE 0.9% 1,000 ML IV PRN (18:38)
[2021-04-08] MEDS: ATORVASTATIN 80 MG TABLET PO SCH (20:05)
[2021-04-08 20:52] LABS: Hematocrit 39.1 VOL% (35.7-47.0); Hemoglobin 11.7 GM/DL (12.0-16.0)
[2021-04-09 04:22] LABS: ABG Base Excess 6.2 MMOL/L (-2.5-2.5); ABG Oxygen Saturation 94.2 % (95-100); ABG PCO2 54.3 MM HG (35-48); ABG PH 7.382 (7.35-7.45); ABG PO2 75.5 MM HG (80-95); ABG TCO2 30.2 MMOL/L (23-27); Allen Test Positive; Pt O2 Delivery Device Ventilator
[2021-04-09 04:56] LABS: Basophils # 0.1 10*3/uL (0.0-0.2); Basophils % 0.5 % (0.0-0.8); Eosinophils # 0.4 10*3/uL (0.0-0.87); Hematocrit 26.7 VOL% (35.7-47.0); Hemoglobin 7.9 GM/DL (12.0-16.0); Immature Granulocytes % 0.7 %; Immature Granulocytes Absolute 0.09 #; Lymphocytes # 1.5 10*3/uL (1.4-4.0); Lymphocytes % 11.4 % (21.3-54.2); Mean Corpuscular HGB Conc 29.6 GM/DL (32-36); Mean Corpuscular Volume 98.2 FL (87-102); Mean Platelet Volume 11.9 FL (9.6-12.0); Monocytes % 13.8 % (1.7-12.7); Neutrophils % 70.6 % (38.7-73.9); Platelet Count 302 T/CUMM (130-400); Red Blood Count 2.72 MC/CUMM (3.8-5.5); Red Cell Distribution Width 15.2 % (9.3-17.3); White Blood Count 13.5 T/CUMM (4-12)
[2021-04-09 05:07] LABS: Alanine Aminotransferase 75 U/L (13-56); Albumin 2.3 G/DL (3.4-5.0); Alkaline Phosphatase 79 U/L (45-117); Aspartate Amino Transferase 74 U/L (0-37); Bilirubin,Total < 0.39 MG/DL (0.20-1.00); Blood Urea Nitrogen 72 MG/DL (7-18); Calcium 8.8 MG/DL (8.5-10.1); Carbon Dioxide 33 MMOL/L (21-32); Estimated Glom Filtration Rate 41 ML/MIN; Glucose 144 MG/DL (74-106); Osmolality,Calculated 298.7 MOS/KG (273-304); Potassium 4.3 MMOL/L (3.5-5.1); Sodium 138 MMOL/L (136-145)
[2021-04-09] MEDS: INSULIN REGULAR 100 UNIT/ML SUBCUT SCH ×3 (05:27→18:04)
[2021-04-09] MEDS: DORNASE ALFA 2.5 MG/2.5 ML VIAL RESP TX SCH ×2 (07:15→20:35)
[2021-04-09] MEDS: ALBUTEROL 2.5 MG/3 ML NEB RESP TX SCH ×4 (07:15→20:34)
[2021-04-09] MEDS: PANTOPRAZOLE 40 MG VIAL IV SCH ×2 (08:42→20:16)
[2021-04-09] MEDS: METOPROLOL TARTRATE 25 MG TABLET PER TUBE SCH ×2 (08:43→20:16)
[2021-04-09] MEDS: AMIODARONE 200 MG TABLET PO SCH ×2 (08:43→20:16)
[2021-04-09] MEDS: SPIRONOLACTONE 25 MG TABLET PO SCH (08:43)
[2021-04-09] MEDS: acetaZOLAMIDE 250 MG TABLET PO SCH (08:43)
[2021-04-09] MEDS: ASPIRIN CHEW 81 MG TABLET PO SCH (08:43)
[2021-04-09] MEDS: MAGNESIUM OXIDE 400 MG TABLET PO SCH (08:43)
[2021-04-09] MEDS: FERROUS SULFATE 325 MG TABLET PO SCH (08:43)
[2021-04-09] MEDS: DESITIN 4OZ/NYSTATIN 15 GRAM MIXTURE PASTE TOP SCH ×2 (08:44→20:16)
[2021-04-09 09:19] LABS: Hematocrit 28.3 VOL% (35.7-47.0); Hemoglobin 8.7 GM/DL (12.0-16.0)
[2021-04-09 12:03] LABS: Hematocrit 29.3 VOL% (35.7-47.0); Hemoglobin 9.1 GM/DL (12.0-16.0)
[2021-04-09] MEDS: cefTRIAXone 1,000 MG in SODIUM CHLORIDE 0.9% 100 ML IV SCH (17:20)
[2021-04-09] MEDS: ATORVASTATIN 80 MG TABLET PO SCH (20:16)
[2021-04-10] MEDS: INSULIN REGULAR 100 UNIT/ML SUBCUT SCH ×4 (00:38→18:06)
[2021-04-10] MEDS: ALBUTEROL 2.5 MG/3 ML NEB RESP TX SCH ×4 (00:48→19:00)
[2021-04-10 04:18] LABS: ABG Base Excess 6.4 MMOL/L (-2.5-2.5); ABG HCO3 30.2 MMOL/L (20-26); ABG Oxygen Saturation 93.9 % (95-100); ABG PCO2 56.1 MM HG (35-48); ABG PH 7.375 (7.35-7.45); ABG PO2 74.6 MM HG (80-95); ABG TCO2 30.5 MMOL/L (23-27); Allen Test Positive; Pt O2 Delivery Device Ventilator
[2021-04-10 04:34] LABS: Basophils # 0.1 10*3/uL (0.0-0.2); Basophils % 0.5 % (0.0-0.8); Eosinophils # 0.6 10*3/uL (0.0-0.87); Eosinophils % 4.6 % (0.00-10.9); Hematocrit 27.3 VOL% (35.7-47.0); Hemoglobin 8.3 GM/DL (12.0-16.0); Immature Granulocytes % 0.6 %; Immature Granulocytes Absolute 0.08 #; Lymphocytes # 1.6 10*3/uL (1.4-4.0); Lymphocytes % 11.7 % (21.3-54.2); Mean Corpuscular HGB Conc 30.4 GM/DL (32-36); Mean Corpuscular Volume 96.8 FL (87-102); Monocytes % 15.4 % (1.7-12.7); Neutrophils % 67.2 % (38.7-73.9); Platelet Count 308 T/CUMM (130-400); Red Blood Count 2.82 MC/CUMM (3.8-5.5); Red Cell Distribution Width 15.6 % (9.3-17.3); White Blood Count 13.9 T/CUMM (4-12)
[2021-04-10 05:22] LABS: Calcium 8.7 MG/DL (8.5-10.1); Osmolality,Calculated 309.1 MOS/KG (273-304); Potassium 4.3 MMOL/L (3.5-5.1)
[2021-04-10] MEDS: DORNASE ALFA 2.5 MG/2.5 ML VIAL RESP TX SCH ×2 (07:13→19:00)
[2021-04-10] MEDS: PANTOPRAZOLE 40 MG VIAL IV SCH ×2 (09:11→20:00)
[2021-04-10] MEDS: METOPROLOL TARTRATE 25 MG TABLET PER TUBE SCH ×2 (09:11→20:00)
[2021-04-10] MEDS: ASPIRIN CHEW 81 MG TABLET PO SCH (09:11)
[2021-04-10] MEDS: FERROUS SULFATE 325 MG TABLET PO SCH (09:11)
[2021-04-10] MEDS: SPIRONOLACTONE 25 MG TABLET PO SCH (09:11)
[2021-04-10] MEDS: AMIODARONE 200 MG TABLET PO SCH ×2 (09:11→20:00)
[2021-04-10] MEDS: DESITIN 4OZ/NYSTATIN 15 GRAM MIXTURE PASTE TOP SCH ×2 (09:12→20:01)
[2021-04-10] MEDS: ATORVASTATIN 80 MG TABLET PO SCH (20:00)
[2021-04-11] MEDS: INSULIN REGULAR 100 UNIT/ML SUBCUT SCH ×4 (00:10→17:08)
[2021-04-11] MEDS: ALBUTEROL 2.5 MG/3 ML NEB RESP TX SCH ×4 (02:05→20:30)
[2021-04-11 03:35] LABS: ABG Base Excess 7.4 MMOL/L (-2.5-2.5); ABG HCO3 31.1 MMOL/L (20-26); ABG Oxygen Saturation 93.9 % (95-100); ABG PCO2 53.7 MM HG (35-48); ABG PO2 72.1 MM HG (80-95); ABG TCO2 31.2 MMOL/L (23-27)
[2021-04-11 03:57] LABS: Basophils # 0.1 10*3/uL (0.0-0.2); Basophils % 0.5 % (0.0-0.8); Eosinophils # 0.6 10*3/uL (0.0-0.87); Eosinophils % 4.2 % (0.00-10.9); Hemoglobin 7.4 GM/DL (12.0-16.0); Immature Granulocytes % 0.6 %; Immature Granulocytes Absolute 0.08 #; Lymphocytes # 1.2 10*3/uL (1.4-4.0); Lymphocytes % 9.2 % (21.3-54.2); Mean Corpuscular HGB Conc 29.6 GM/DL (32-36); Monocytes % 11.5 % (1.7-12.7); Platelet Count 325 T/CUMM (130-400); Red Blood Count 2.55 MC/CUMM (3.8-5.5); Red Cell Distribution Width 15.6 % (9.3-17.3); White Blood Count 13.2 T/CUMM (4-12)
[2021-04-11] MEDS ORDERED: SODIUM CHLORIDE 0.9% 1,000 ML IV PRN (04:00)
[2021-04-11 04:35] LABS: Albumin 2.2 G/DL (3.4-5.0); Bilirubin,Total 0.4 MG/DL (0.20-1.00); Calcium 8.9 MG/DL (8.5-10.1); Osmolality,Calculated 305.4 MOS/KG (273-304); Potassium 4.4 MMOL/L (3.5-5.1); Total Protein 6.9 G/DL (6.4-8.2)
[2021-04-11] MEDS: DORNASE ALFA 2.5 MG/2.5 ML VIAL RESP TX SCH ×2 (07:12→20:30)
[2021-04-11] MEDS: cefTRIAXone 1,000 MG in SODIUM CHLORIDE 0.9% 100 ML IV SCH (08:00)
[2021-04-11] MEDS: AMIODARONE 200 MG TABLET PO SCH ×2 (08:00→20:54)
[2021-04-11] MEDS: DESITIN 4OZ/NYSTATIN 15 GRAM MIXTURE PASTE TOP SCH ×2 (08:00→20:54)
[2021-04-11] MEDS: METOPROLOL TARTRATE 25 MG TABLET PER TUBE SCH ×2 (08:00→20:54)
[2021-04-11] MEDS: PANTOPRAZOLE 40 MG VIAL IV SCH ×2 (08:00→20:54)
[2021-04-11] MEDS: FERROUS SULFATE 325 MG TABLET PO SCH (08:00)
[2021-04-11] MEDS: ASPIRIN CHEW 81 MG TABLET PO SCH (08:00)
[2021-04-11 14:09] LABS: ABG Base Excess 7.5 MMOL/L (-2.5-2.5); ABG HCO3 33.6 MMOL/L (20-26); ABG Oxygen Saturation 94.3 % (95-100); ABG PCO2 56.2 MM HG (35-48); ABG PH 7.394 (7.35-7.45); ABG PO2 76.6 MM HG (80-95); ABG TCO2 35.3 MMOL/L (23-27); Pt O2 Delivery Device Ventilator
[2021-04-11] MEDS: ATORVASTATIN 80 MG TABLET PO SCH (20:54)
[2021-04-12] MEDS: INSULIN REGULAR 100 UNIT/ML SUBCUT SCH ×4 (00:59→17:55)
[2021-04-12] MEDS: ALBUTEROL 2.5 MG/3 ML NEB RESP TX SCH ×4 (01:00→20:08)
[2021-04-12 04:38] LABS: ABG Base Excess 6.9 MMOL/L (-2.5-2.5); ABG HCO3 32.2 MMOL/L (20-26); ABG Oxygen Saturation 95.6 % (95-100); ABG PCO2 50.3 MM HG (35-48); ABG PH 7.424 (7.35-7.45); ABG PO2 80.3 MM HG (80-95); ABG TCO2 33.7 MMOL/L (23-27)
[2021-04-12 04:48] LABS: Basophils # 0.1 10*3/uL (0.0-0.2); Basophils % 0.5 % (0.0-0.8); Eosinophils # 0.5 10*3/uL (0.0-0.87); Eosinophils % 4.1 % (0.00-10.9); Hematocrit 28.9 VOL% (35.7-47.0); Hemoglobin 8.5 GM/DL (12.0-16.0); Immature Granulocytes % 0.4 %; Immature Granulocytes Absolute 0.05 #; Lymphocytes # 1.3 10*3/uL (1.4-4.0); Mean Corpuscular HGB Conc 29.4 GM/DL (32-36); Mean Corpuscular Volume 97.6 FL (87-102); Mean Platelet Volume 11.8 FL (9.6-12.0); Monocytes % 9.5 % (1.7-12.7); Neutrophils % 74.5 % (38.7-73.9); Platelet Count 365 T/CUMM (130-400); Red Blood Count 2.96 MC/CUMM (3.8-5.5); Red Cell Distribution Width 16.6 % (9.3-17.3); White Blood Count 11.9 T/CUMM (4-12)
[2021-04-12 05:01] LABS: Osmolality,Calculated 301.3 MOS/KG (273-304); Potassium 4.6 MMOL/L (3.5-5.1)
[2021-04-12] MEDS: cefTRIAXone 1,000 MG in SODIUM CHLORIDE 0.9% 100 ML IV SCH (06:49)
[2021-04-12] MEDS: DORNASE ALFA 2.5 MG/2.5 ML VIAL RESP TX SCH ×2 (07:52→20:30)
[2021-04-12] MEDS: PANTOPRAZOLE 40 MG VIAL IV SCH ×2 (08:20→20:44)
[2021-04-12] MEDS: ASPIRIN CHEW 81 MG TABLET PO SCH (08:27)
[2021-04-12] MEDS: FERROUS SULFATE 325 MG TABLET PO SCH (08:27)
[2021-04-12] MEDS: METOPROLOL TARTRATE 25 MG TABLET PER TUBE SCH ×2 (08:28→20:45)
[2021-04-12] MEDS: DESITIN 4OZ/NYSTATIN 15 GRAM MIXTURE PASTE TOP SCH ×2 (08:28→20:45)
[2021-04-12] MEDS: AMIODARONE 200 MG TABLET PO SCH ×2 (08:28→20:45)
[2021-04-12] MEDS ORDERED: OXYMETAZOLINE 0.05% NASAL SPRAY 15 ML BOTTLE BOTH NARES PRN (14:28)
[2021-04-12] MEDS ORDERED: RACEPINEPHRINE 0.5 ML NEB RESP TX ONE ×2 (20:25→20:26)
[2021-04-12] MEDS ORDERED: methylPREDNISolone SOD SUC 125 MG/2 ML VIAL IV ONE (20:25)
[2021-04-12] MEDS: ATORVASTATIN 80 MG TABLET PO SCH (20:45)
[2021-04-12] MEDS: ACETAMINOPHEN 325 MG TABLET PO PRN (21:06)
[2021-04-13] MEDS: INSULIN REGULAR 100 UNIT/ML SUBCUT SCH ×4 (00:20→18:07)
[2021-04-13] MEDS: ALBUTEROL 2.5 MG/3 ML NEB RESP TX SCH ×4 (00:33→19:25)
[2021-04-13 04:16] LABS: ABG Base Excess 4.3 MMOL/L (-2.5-2.5); ABG HCO3 28.2 MMOL/L (20-26); ABG Oxygen Saturation 95.9 % (95-100); ABG PO2 90.4 MM HG (80-95); ABG TCO2 30.5 MMOL/L (23-27); Allen Test Positive; Pt O2 Delivery Device BIPAP
[2021-04-13 04:29] LABS: ABG PCO2 70.5 MM HG (35-48)
[2021-04-13 05:00] LABS: Calcium 9.4 MG/DL (8.5-10.1); Osmolality,Calculated 297.5 MOS/KG (273-304); Potassium 5.7 MMOL/L (3.5-5.1)
[2021-04-13] MEDS ORDERED: ETOMIDATE 20 MG/10 ML VIAL IV ONE ×2 (05:04→05:22)
[2021-04-13] MEDS ORDERED: SUCCINYLCHOLINE 200 MG/10 ML VIAL ONE (05:05)
[2021-04-13] MEDS: methylPREDNISolone SOD SUC 40 MG/1 ML VIAL IV SCH ×3 (05:07→20:17)
[2021-04-13] MEDS ORDERED: VECURONIUM 10 MG VIAL IV ONE ×2 (05:09→05:22)
[2021-04-13 05:48] LABS: Basophils % 0.3 % (0.0-0.8); Hematocrit 32.6 VOL% (35.7-47.0); Hemoglobin 9.4 GM/DL (12.0-16.0); Immature Granulocytes % 0.6 %; Immature Granulocytes Absolute 0.07 #; Lymphocytes # 0.5 10*3/uL (1.4-4.0); Lymphocytes % 3.9 % (21.3-54.2); Mean Corpuscular HGB Conc 28.8 GM/DL (32-36); Mean Corpuscular Volume 98.8 FL (87-102); Mean Platelet Volume 12.3 FL (9.6-12.0); Monocytes % 0.8 % (1.7-12.7); Neutrophils % 94.4 % (38.7-73.9); Platelet Count 335 T/CUMM (130-400); Red Cell Distribution Width 15.9 % (9.3-17.3); White Blood Count 11.9 T/CUMM (4-12)
[2021-04-13 06:15] LABS: ABG Base Excess 5.7 MMOL/L (-2.5-2.5); ABG HCO3 29.4 MMOL/L (20-26); ABG PCO2 56.7 MM HG (35-48); ABG PH 7.365 (7.35-7.45); ABG PO2 66.3 MM HG (80-95); ABG TCO2 29.7 MMOL/L (23-27); Allen Test Positive; Pt O2 Delivery Device Ventilator
[2021-04-13] MEDS: cefTRIAXone 1,000 MG in SODIUM CHLORIDE 0.9% 100 ML IV SCH (06:49)
[2021-04-13] MEDS: DORNASE ALFA 2.5 MG/2.5 ML VIAL RESP TX SCH ×2 (07:32→19:25)
[2021-04-13 08:22] LABS: Hypochromia Slight; Lymphocytes 7 % (20-55); Platelet Estimate Normal; Segmented Neutrophils 92 % (50-85); Total Cells Counted 100
[2021-04-13] MEDS: ASPIRIN CHEW 81 MG TABLET PO SCH (08:31)
[2021-04-13] MEDS: METOPROLOL TARTRATE 25 MG TABLET PER TUBE SCH ×2 (08:32→20:17)
[2021-04-13] MEDS: FERROUS SULFATE 325 MG TABLET PO SCH (08:32)
[2021-04-13] MEDS: DOCUSATE SODIUM 100 MG CAPSULE PO PRN (08:32)
[2021-04-13] MEDS: AMIODARONE 200 MG TABLET PO SCH ×2 (08:32→20:17)
[2021-04-13] MEDS: PANTOPRAZOLE 40 MG VIAL IV SCH ×2 (08:33→20:16)
[2021-04-13] MEDS: DESITIN 4OZ/NYSTATIN 15 GRAM MIXTURE PASTE TOP SCH ×2 (08:33→20:27)
[2021-04-13] MEDS ORDERED: FUROSEMIDE 40 MG/4 ML VIAL IV ONE (09:29)
[2021-04-13] MEDS ORDERED: ALBUMIN 25% 25 GM/100 ML VIAL IV ONE (09:29)
[2021-04-13] MEDS ORDERED: SODIUM POLYSTYRENE SULFATE 15 GM/60 ML BOTTLE PO ONE (09:39)
[2021-04-13] MEDS: ALBUMIN 25% 25 GM/100 ML VIAL IV SCH ×2 (10:49→21:21)
[2021-04-13] MEDS: ACETAMINOPHEN 325 MG TABLET PO PRN (11:15)
[2021-04-13] MEDS: FUROSEMIDE 40 MG/4 ML VIAL IV SCH ×2 (12:01→21:22)
[2021-04-13] MEDS ORDERED: MORPHINE 2 MG/1 ML SYRINGE IV PRN (13:45)
[2021-04-13] MEDS: ATORVASTATIN 80 MG TABLET PO SCH (20:17)
[2021-04-14] MEDS: INSULIN REGULAR 100 UNIT/ML SUBCUT SCH ×5 (00:10→23:41)
[2021-04-14] MEDS: ALBUTEROL 2.5 MG/3 ML NEB RESP TX SCH ×4 (01:05→19:55)
[2021-04-14] MEDS: methylPREDNISolone SOD SUC 40 MG/1 ML VIAL IV SCH ×3 (04:55→23:41)
[2021-04-14 04:57] LABS: Hematocrit 25.7 VOL% (35.7-47.0); Hemoglobin 7.7 GM/DL (12.0-16.0); Immature Granulocytes % 0.5 %; Immature Granulocytes Absolute 0.04 #; Lymphocytes # 0.6 10*3/uL (1.4-4.0); Lymphocytes % 7.4 % (21.3-54.2); Mean Corpuscular Volume 95.9 FL (87-102); Mean Platelet Volume 11.7 FL (9.6-12.0); Monocytes % 1.8 % (1.7-12.7); Neutrophils % 90.3 % (38.7-73.9); Platelet Count 350 T/CUMM (130-400); Red Blood Count 2.68 MC/CUMM (3.8-5.5); Red Cell Distribution Width 15.7 % (9.3-17.3); White Blood Count 8.2 T/CUMM (4-12)
[2021-04-14 05:05] LABS: ABG Base Excess 8.6 MMOL/L (-2.5-2.5); ABG Oxygen Saturation 71.7 % (95-100); ABG PCO2 52.2 MM HG (35-48); ABG PH 7.425 (7.35-7.45); ABG TCO2 32.2 MMOL/L (23-27)
[2021-04-14 05:08] LABS: ABG PO2 40.4 MM HG (80-95)
[2021-04-14 05:12] LABS: Albumin 2.7 G/DL (3.4-5.0); Bilirubin,Total 0.6 MG/DL (0.20-1.00); Calcium 9.1 MG/DL (8.5-10.1); Osmolality,Calculated 306.1 MOS/KG (273-304); Potassium 4.2 MMOL/L (3.5-5.1); Total Protein 7.2 G/DL (6.4-8.2)
[2021-04-14] MEDS ORDERED: SODIUM CHLORIDE 0.9% 1,000 ML IV PRN (05:31)
[2021-04-14 05:32] LABS: ABG HCO3 31.8 MMOL/L (20-26); ABG Oxygen Saturation 93.7 % (95-100); ABG PCO2 50.2 MM HG (35-48); ABG PH 7.432 (7.35-7.45); ABG PO2 69.4 MM HG (80-95)
[2021-04-14] MEDS: DORNASE ALFA 2.5 MG/2.5 ML VIAL RESP TX SCH ×2 (07:00→19:42)
[2021-04-14] MEDS: cefTRIAXone 1,000 MG in SODIUM CHLORIDE 0.9% 100 ML IV SCH (07:00)
[2021-04-14] MEDS: FERROUS SULFATE 325 MG TABLET PO SCH (08:01)
[2021-04-14] MEDS: METOPROLOL TARTRATE 25 MG TABLET PER TUBE SCH ×2 (08:02→20:10)
[2021-04-14] MEDS: DESITIN 4OZ/NYSTATIN 15 GRAM MIXTURE PASTE TOP SCH ×2 (08:02→20:10)
[2021-04-14] MEDS: AMIODARONE 200 MG TABLET PO SCH ×2 (08:02→20:10)
[2021-04-14] MEDS: PANTOPRAZOLE 40 MG VIAL IV SCH ×2 (08:02→20:10)
[2021-04-14 08:07] LABS: Hematocrit 26.1 VOL% (35.7-47.0)
[2021-04-14 08:26] LABS: PT Patient Result 11.4 SECS (10.5-12.0)
[2021-04-14] MEDS: ALBUMIN 25% 25 GM/100 ML VIAL IV SCH (09:12)
[2021-04-14] MEDS: FUROSEMIDE 40 MG/4 ML VIAL IV SCH (10:36)
[2021-04-14] MEDS: ATORVASTATIN 80 MG TABLET PO SCH (20:10)
[2021-04-15] MEDS: ALBUTEROL 2.5 MG/3 ML NEB RESP TX SCH ×4 (01:24→19:35)
[2021-04-15 04:18] LABS: ABG Base Excess 6.4 MMOL/L (-2.5-2.5); ABG HCO3 30.2 MMOL/L (20-26); ABG Oxygen Saturation 98.2 % (95-100); ABG PH 7.406 (7.35-7.45); ABG TCO2 29.8 MMOL/L (23-27); Allen Test Positive; Pt O2 Delivery Device Ventilator
[2021-04-15 04:33] LABS: Basophils % 0.1 % (0.0-0.8); Hematocrit 27.6 VOL% (35.7-47.0); Hemoglobin 8.1 GM/DL (12.0-16.0); Immature Granulocytes % 0.6 %; Immature Granulocytes Absolute 0.06 #; Lymphocytes # 0.5 10*3/uL (1.4-4.0); Lymphocytes % 4.5 % (21.3-54.2); Mean Corpuscular HGB Conc 29.3 GM/DL (32-36); Mean Corpuscular Volume 95.8 FL (87-102); Mean Platelet Volume 11.4 FL (9.6-12.0); Neutrophils % 91.8 % (38.7-73.9); Platelet Count 349 T/CUMM (130-400); Red Blood Count 2.88 MC/CUMM (3.8-5.5); Red Cell Distribution Width 15.7 % (9.3-17.3)
[2021-04-15 04:51] LABS: Calcium 8.7 MG/DL (8.5-10.1); Osmolality,Calculated 314.1 MOS/KG (273-304); Potassium 4.1 MMOL/L (3.5-5.1)
[2021-04-15 04:56] LABS: Hypochromia 1+; Lymphocytes 7 % (20-55); Microcytosis 1+; Platelet Estimate Adequate; Segmented Neutrophils 91 % (50-85); Total Cells Counted 100
[2021-04-15] MEDS: INSULIN REGULAR 100 UNIT/ML SUBCUT SCH ×3 (05:34→18:13)
[2021-04-15] MEDS: DORNASE ALFA 2.5 MG/2.5 ML VIAL RESP TX SCH ×2 (07:39→19:35)
[2021-04-15] MEDS: DESITIN 4OZ/NYSTATIN 15 GRAM MIXTURE PASTE TOP SCH ×2 (08:41→20:22)
[2021-04-15] MEDS: PANTOPRAZOLE 40 MG VIAL IV SCH ×2 (08:51→20:21)
[2021-04-15] MEDS: DOCUSATE SODIUM 100 MG CAPSULE PO PRN (08:51)
[2021-04-15] MEDS: METOPROLOL TARTRATE 25 MG TABLET PER TUBE SCH ×2 (08:51→20:22)
[2021-04-15] MEDS: FERROUS SULFATE 325 MG TABLET PO SCH (08:51)
[2021-04-15] MEDS: AMIODARONE 200 MG TABLET PO SCH ×3 (08:51→20:22)
[2021-04-15] MEDS: cefTRIAXone 1,000 MG in SODIUM CHLORIDE 0.9% 100 ML IV SCH (08:52)
[2021-04-15] MEDS: methylPREDNISolone SOD SUC 40 MG/1 ML VIAL IV SCH (11:18)
[2021-04-15] MEDS: ATORVASTATIN 80 MG TABLET PO SCH (20:21)
[2021-04-16] MEDS: methylPREDNISolone SOD SUC 40 MG/1 ML VIAL IV SCH ×2 (00:01→12:27)
[2021-04-16] MEDS: INSULIN REGULAR 100 UNIT/ML SUBCUT SCH ×4 (00:02→18:30)
[2021-04-16] MEDS: ALBUTEROL 2.5 MG/3 ML NEB RESP TX SCH ×5 (01:05→19:17)
[2021-04-16 03:40] LABS: ABG Base Excess 6.9 MMOL/L (-2.5-2.5); ABG HCO3 30.7 MMOL/L (20-26); ABG PCO2 45.1 MM HG (35-48); ABG PH 7.454 (7.35-7.45); ABG PO2 77.4 MM HG (80-95); ABG TCO2 29.2 MMOL/L (23-27)
[2021-04-16 04:16] LABS: Albumin 2.7 G/DL (3.4-5.0); Bilirubin,Total 0.4 MG/DL (0.20-1.00); Calcium 9.1 MG/DL (8.5-10.1); Osmolality,Calculated 309.3 MOS/KG (273-304); Potassium 4.7 MMOL/L (3.5-5.1); Total Protein 7.1 G/DL (6.4-8.2)
[2021-04-16] MEDS: DORNASE ALFA 2.5 MG/2.5 ML VIAL RESP TX SCH ×2 (07:06→19:17)
[2021-04-16] MEDS: METOPROLOL TARTRATE 25 MG TABLET PER TUBE SCH ×2 (08:08→20:12)
[2021-04-16] MEDS: cefTRIAXone 1,000 MG in SODIUM CHLORIDE 0.9% 100 ML IV SCH (08:33)
[2021-04-16] MEDS: PANTOPRAZOLE 40 MG VIAL IV SCH ×2 (08:34→20:12)
[2021-04-16] MEDS: AMIODARONE 200 MG TABLET PO SCH ×2 (08:34→20:11)
[2021-04-16] MEDS: FERROUS SULFATE 325 MG TABLET PO SCH (08:34)
[2021-04-16] MEDS: ASPIRIN CHEW 81 MG TABLET PO SCH (08:34)
[2021-04-16] MEDS: DESITIN 4OZ/NYSTATIN 15 GRAM MIXTURE PASTE TOP SCH ×2 (08:35→20:12)
[2021-04-16] MEDS: ATORVASTATIN 80 MG TABLET PO SCH (20:11)
[2021-04-17] MEDS: INSULIN REGULAR 100 UNIT/ML SUBCUT SCH ×4 (00:06→18:19)
[2021-04-17] MEDS: methylPREDNISolone SOD SUC 40 MG/1 ML VIAL IV SCH ×3 (00:06→22:35)
[2021-04-17] MEDS: ALBUTEROL 2.5 MG/3 ML NEB RESP TX SCH ×4 (01:35→19:50)
[2021-04-17 03:25] LABS: Hematocrit 29.4 VOL% (35.7-47.0); Hemoglobin 8.8 GM/DL (12.0-16.0); Immature Granulocytes % 0.6 %; Immature Granulocytes Absolute 0.07 #; Lymphocytes # 0.7 10*3/uL (1.4-4.0); Lymphocytes % 5.5 % (21.3-54.2); Mean Corpuscular HGB Conc 29.9 GM/DL (32-36); Mean Corpuscular Volume 95.1 FL (87-102); Mean Platelet Volume 11.1 FL (9.6-12.0); Monocytes % 5.4 % (1.7-12.7); Neutrophils % 88.5 % (38.7-73.9); Platelet Count 299 T/CUMM (130-400); Red Blood Count 3.09 MC/CUMM (3.8-5.5); Red Cell Distribution Width 15.2 % (9.3-17.3); White Blood Count 11.9 T/CUMM (4-12)
[2021-04-17 03:51] LABS: Calcium 8.8 MG/DL (8.5-10.1); Osmolality,Calculated 309.1 MOS/KG (273-304); Potassium 5.1 MMOL/L (3.5-5.1)
[2021-04-17 05:03] LABS: ABG Base Excess 5.6 MMOL/L (-2.5-2.5); ABG Oxygen Saturation 92.4 % (95-100); ABG PCO2 42.9 MM HG (35-48); ABG PH 7.462 (7.35-7.45); ABG PO2 64.2 MM HG (80-95); ABG TCO2 31.3 MMOL/L (23-27)
[2021-04-17] MEDS: DORNASE ALFA 2.5 MG/2.5 ML VIAL RESP TX SCH ×2 (07:21→20:00)
[2021-04-17] MEDS: cefTRIAXone 1,000 MG in SODIUM CHLORIDE 0.9% 100 ML IV SCH (07:37)
[2021-04-17] MEDS: DESITIN 4OZ/NYSTATIN 15 GRAM MIXTURE PASTE TOP SCH ×2 (08:20→21:05)
[2021-04-17] MEDS: AMIODARONE 200 MG TABLET PO SCH ×2 (08:20→21:06)
[2021-04-17] MEDS: ASPIRIN CHEW 81 MG TABLET PO SCH (08:20)
[2021-04-17] MEDS: FERROUS SULFATE 325 MG TABLET PO SCH (08:20)
[2021-04-17] MEDS: PANTOPRAZOLE 40 MG VIAL IV SCH ×2 (08:20→21:07)
[2021-04-17] MEDS ORDERED: FUROSEMIDE 40 MG/4 ML VIAL IV ONE (08:34)
[2021-04-17] MEDS: METOPROLOL TARTRATE 25 MG TABLET PER TUBE SCH ×2 (11:20→21:05)
[2021-04-17] MEDS: ATORVASTATIN 80 MG TABLET PO SCH (21:05)
[2021-04-18] MEDS: ALBUTEROL 2.5 MG/3 ML NEB RESP TX SCH ×4 (00:38→19:11)
[2021-04-18] MEDS: INSULIN REGULAR 100 UNIT/ML SUBCUT SCH ×4 (00:50→18:33)
[2021-04-18 04:58] LABS: Basophils % 0.1 % (0.0-0.8); Hematocrit 29.2 VOL% (35.7-47.0); Hemoglobin 8.7 GM/DL (12.0-16.0); Immature Granulocytes % 0.7 %; Immature Granulocytes Absolute 0.09 #; Lymphocytes # 0.6 10*3/uL (1.4-4.0); Lymphocytes % 4.2 % (21.3-54.2); Mean Corpuscular HGB Conc 29.8 GM/DL (32-36); Mean Corpuscular Volume 94.2 FL (87-102); Mean Platelet Volume 11.4 FL (9.6-12.0); Monocytes % 4.9 % (1.7-12.7); Neutrophils % 90.1 % (38.7-73.9); Platelet Count 271 T/CUMM (130-400); White Blood Count 13.6 T/CUMM (4-12)
[2021-04-18 05:15] LABS: ABG HCO3 28.9 MMOL/L (20-26); ABG Oxygen Saturation 97.1 % (95-100); ABG PCO2 44.8 MM HG (35-48); ABG PH 7.434 (7.35-7.45); ABG TCO2 26.7 MMOL/L (23-27)
[2021-04-18 05:20] LABS: Hypochromia 1+; Lymphocytes 1 % (20-55); Microcytosis 1+; Nucleated Red Blood Cells 1 (0-5); Platelet Estimate Normal; Segmented Neutrophils 92 % (50-85); Total Cells Counted 100
[2021-04-18 05:21] LABS: Calcium 8.8 MG/DL (8.5-10.1); Osmolality,Calculated 301.4 MOS/KG (273-304); Potassium 5.2 MMOL/L (3.5-5.1)
[2021-04-18] MEDS: DORNASE ALFA 2.5 MG/2.5 ML VIAL RESP TX SCH ×2 (06:55→19:11)
[2021-04-18] MEDS: cefTRIAXone 1,000 MG in SODIUM CHLORIDE 0.9% 100 ML IV SCH (08:39)
[2021-04-18] MEDS: PANTOPRAZOLE 40 MG VIAL IV SCH ×2 (08:40→20:01)
[2021-04-18] MEDS: FERROUS SULFATE 325 MG TABLET PO SCH (08:40)
[2021-04-18] MEDS: AMIODARONE 200 MG TABLET PO SCH ×2 (08:40→20:01)
[2021-04-18] MEDS: DESITIN 4OZ/NYSTATIN 15 GRAM MIXTURE PASTE TOP SCH ×2 (08:40→20:01)
[2021-04-18] MEDS: ASPIRIN CHEW 81 MG TABLET PO SCH (08:40)
[2021-04-18] MEDS: METOPROLOL TARTRATE 25 MG TABLET PER TUBE SCH ×2 (10:55→20:01)
[2021-04-18] MEDS: methylPREDNISolone SOD SUC 40 MG/1 ML VIAL IV SCH ×2 (13:33→23:00)
[2021-04-18] MEDS: ATORVASTATIN 80 MG TABLET PO SCH (20:01)
[2021-04-19] MEDS: INSULIN REGULAR 100 UNIT/ML SUBCUT SCH ×4 (00:19→18:39)
[2021-04-19] MEDS: ALBUTEROL 2.5 MG/3 ML NEB RESP TX SCH ×4 (00:49→18:42)
[2021-04-19 04:00] LABS: ABG Base Excess 4.4 MMOL/L (-2.5-2.5); ABG HCO3 28.4 MMOL/L (20-26); ABG Oxygen Saturation 98.4 % (95-100); ABG PCO2 40.1 MM HG (35-48); ABG TCO2 25.7 MMOL/L (23-27); Allen Test Positive; Pt O2 Delivery Device Ventilator
[2021-04-19 05:07] LABS: Basophils % 0.1 % (0.0-0.8); Hematocrit 31.4 VOL% (35.7-47.0); Hemoglobin 9.6 GM/DL (12.0-16.0); Immature Granulocytes % 0.7 %; Immature Granulocytes Absolute 0.11 #; Lymphocytes # 0.5 10*3/uL (1.4-4.0); Lymphocytes % 3.4 % (21.3-54.2); Mean Corpuscular HGB Conc 30.6 GM/DL (32-36); Mean Corpuscular Volume 93.2 FL (87-102); Mean Platelet Volume 11.6 FL (9.6-12.0); Neutrophils % 92.8 % (38.7-73.9); Platelet Count 281 T/CUMM (130-400); Red Blood Count 3.37 MC/CUMM (3.8-5.5); White Blood Count 15.2 T/CUMM (4-12)
[2021-04-19 05:19] LABS: Calcium 8.9 MG/DL (8.5-10.1); Osmolality,Calculated 299.5 MOS/KG (273-304); Potassium 5.3 MMOL/L (3.5-5.1)
[2021-04-19 05:37] LABS: Band Neutrophils 1 % (0-10); Hypochromia 1+; Lymphocytes 4 % (20-55); Microcytosis Slight; Ovalocytes Slight; Platelet Estimate Normal; Segmented Neutrophils 93 % (50-85); Total Cells Counted 100
[2021-04-19] MEDS: DORNASE ALFA 2.5 MG/2.5 ML VIAL RESP TX SCH ×2 (07:00→18:42)
[2021-04-19] MEDS: FERROUS SULFATE 325 MG TABLET PO SCH (08:37)
[2021-04-19] MEDS: PANTOPRAZOLE 40 MG VIAL IV SCH ×2 (08:37→20:59)
[2021-04-19] MEDS: ASPIRIN CHEW 81 MG TABLET PO SCH (08:37)
[2021-04-19] MEDS: METOPROLOL TARTRATE 25 MG TABLET PER TUBE SCH ×2 (08:37→20:59)
[2021-04-19] MEDS: DESITIN 4OZ/NYSTATIN 15 GRAM MIXTURE PASTE TOP SCH ×2 (08:40→20:59)
[2021-04-19] MEDS: AMIODARONE 200 MG TABLET PO SCH ×2 (08:45→20:59)
[2021-04-19] MEDS ORDERED: FUROSEMIDE 40 MG/4 ML VIAL IV ONE (10:17)
[2021-04-19] MEDS: methylPREDNISolone SOD SUC 40 MG/1 ML VIAL IV SCH (11:46)
[2021-04-19] MEDS: ATORVASTATIN 80 MG TABLET PO SCH (20:59)
[2021-04-20] MEDS: methylPREDNISolone SOD SUC 40 MG/1 ML VIAL IV SCH ×3 (00:30→23:42)
[2021-04-20] MEDS: ALBUTEROL 2.5 MG/3 ML NEB RESP TX SCH ×4 (01:05→19:45)
[2021-04-20 04:08] LABS: ABG Base Excess 5.3 MMOL/L (-2.5-2.5); ABG HCO3 29.2 MMOL/L (20-26); ABG Oxygen Saturation 98.9 % (95-100); ABG PCO2 41.6 MM HG (35-48); ABG PH 7.461 (7.35-7.45); ABG TCO2 26.9 MMOL/L (23-27)
[2021-04-20 04:24] LABS: Basophils % 0.1 % (0.0-0.8); Eosinophils % 0.2 % (0.00-10.9); Hematocrit 31.2 VOL% (35.7-47.0); Hemoglobin 9.4 GM/DL (12.0-16.0); Immature Granulocytes Absolute 0.15 #; Lymphocytes # 1.5 10*3/uL (1.4-4.0); Lymphocytes % 9.7 % (21.3-54.2); Mean Corpuscular HGB Conc 30.1 GM/DL (32-36); Mean Corpuscular Volume 93.1 FL (87-102); Monocytes % 9.4 % (1.7-12.7); Neutrophils % 79.6 % (38.7-73.9); Platelet Count 263 T/CUMM (130-400); Red Blood Count 3.35 MC/CUMM (3.8-5.5); Red Cell Distribution Width 14.9 % (9.3-17.3); White Blood Count 15.7 T/CUMM (4-12)
[2021-04-20 04:40] LABS: Calcium 8.9 MG/DL (8.5-10.1); Osmolality,Calculated 292.5 MOS/KG (273-304); Potassium 4.5 MMOL/L (3.5-5.1)
[2021-04-20] MEDS: INSULIN REGULAR 100 UNIT/ML SUBCUT SCH ×5 (06:50→23:42)
[2021-04-20] MEDS: ASPIRIN CHEW 81 MG TABLET PO SCH (08:08)
[2021-04-20] MEDS: PANTOPRAZOLE 40 MG VIAL IV SCH ×2 (08:09→21:29)
[2021-04-20] MEDS: AMIODARONE 200 MG TABLET PO SCH ×2 (08:09→21:30)
[2021-04-20] MEDS: DESITIN 4OZ/NYSTATIN 15 GRAM MIXTURE PASTE TOP SCH ×2 (08:09→21:32)
[2021-04-20] MEDS: FERROUS SULFATE 325 MG TABLET PO SCH (08:09)
[2021-04-20] MEDS: DORNASE ALFA 2.5 MG/2.5 ML VIAL RESP TX SCH ×2 (08:18→19:45)
[2021-04-20] MEDS: METOPROLOL TARTRATE 25 MG TABLET PER TUBE SCH ×2 (12:06→21:30)
[2021-04-20] MEDS: ATORVASTATIN 80 MG TABLET PO SCH (21:30)
[2021-04-20] MEDS: APIXABAN 5 MG TABLET PO SCH (21:30)
[2021-04-20] MEDS: ACETAMINOPHEN 325 MG TABLET PO PRN (21:31)
[2021-04-21] MEDS: ALBUTEROL 2.5 MG/3 ML NEB RESP TX SCH ×4 (00:09→20:05)
[2021-04-21 02:17] LABS: ABG Base Excess 3.5 MMOL/L (-2.5-2.5); ABG HCO3 27.4 MMOL/L (20-26); ABG PCO2 48.3 MM HG (35-48); ABG PO2 69.2 MM HG (80-95); ABG TCO2 26.3 MMOL/L (23-27)
[2021-04-21 03:56] LABS: Basophils % 0.1 % (0.0-0.8); Hematocrit 32.7 VOL% (35.7-47.0); Hemoglobin 9.8 GM/DL (12.0-16.0); Immature Granulocytes % 1.3 %; Immature Granulocytes Absolute 0.19 #; Lymphocytes # 0.5 10*3/uL (1.4-4.0); Lymphocytes % 3.6 % (21.3-54.2); Mean Corpuscular Volume 93.4 FL (87-102); Mean Platelet Volume 12.2 FL (9.6-12.0); Platelet Count 258 T/CUMM (130-400); Red Cell Distribution Width 14.8 % (9.3-17.3)
[2021-04-21 04:20] LABS: Hypochromia Slight; Lymphocytes 3 % (20-55); Microcytosis Slight; Platelet Estimate Adequate; Segmented Neutrophils 94 % (50-85); Total Cells Counted 100
[2021-04-21 05:17] LABS: Albumin 2.4 G/DL (3.4-5.0); Calcium 9.3 MG/DL (8.5-10.1); Osmolality,Calculated 291.5 MOS/KG (273-304); Potassium 5.1 MMOL/L (3.5-5.1); Total Protein 6.6 G/DL (6.4-8.2)
[2021-04-21] MEDS: INSULIN REGULAR 100 UNIT/ML SUBCUT SCH ×3 (05:32→18:10)
[2021-04-21] MEDS: DORNASE ALFA 2.5 MG/2.5 ML VIAL RESP TX SCH ×2 (07:40→20:10)
[2021-04-21] MEDS: ASPIRIN CHEW 81 MG TABLET PO SCH (09:16)
[2021-04-21] MEDS: METOPROLOL TARTRATE 25 MG TABLET PER TUBE SCH ×2 (09:16→20:23)
[2021-04-21] MEDS: DESITIN 4OZ/NYSTATIN 15 GRAM MIXTURE PASTE TOP SCH ×2 (09:16→20:24)
[2021-04-21] MEDS: AMIODARONE 200 MG TABLET PO SCH ×2 (09:16→20:23)
[2021-04-21] MEDS: APIXABAN 5 MG TABLET PO SCH ×2 (09:17→20:23)
[2021-04-21] MEDS: FERROUS SULFATE 325 MG TABLET PO SCH (09:17)
[2021-04-21] MEDS: PANTOPRAZOLE 40 MG VIAL IV SCH ×2 (09:17→20:24)
[2021-04-21] MEDS: methylPREDNISolone SOD SUC 40 MG/1 ML VIAL IV SCH (11:36)
[2021-04-21] MEDS: ESCITALOPRAM 10 MG TABLET PO SCH (20:23)
[2021-04-21] MEDS: ATORVASTATIN 80 MG TABLET PO SCH (20:24)
[2021-04-22] MEDS: methylPREDNISolone SOD SUC 40 MG/1 ML VIAL IV SCH (00:27)
[2021-04-22] MEDS: INSULIN REGULAR 100 UNIT/ML SUBCUT SCH ×4 (00:27→18:08)
[2021-04-22] MEDS: ALBUTEROL 2.5 MG/3 ML NEB RESP TX SCH ×4 (00:42→19:08)
[2021-04-22 04:02] LABS: Basophils % 0.1 % (0.0-0.8); Hematocrit 33.1 VOL% (35.7-47.0); Hemoglobin 10.1 GM/DL (12.0-16.0); Immature Granulocytes Absolute 0.17 #; Lymphocytes # 0.6 10*3/uL (1.4-4.0); Lymphocytes % 3.7 % (21.3-54.2); Mean Corpuscular HGB Conc 30.5 GM/DL (32-36); Mean Corpuscular Volume 93.2 FL (87-102); Mean Platelet Volume 12.3 FL (9.6-12.0); Monocytes % 4.4 % (1.7-12.7); Neutrophils % 90.8 % (38.7-73.9); Platelet Count 273 T/CUMM (130-400); Red Blood Count 3.55 MC/CUMM (3.8-5.5); Red Cell Distribution Width 14.7 % (9.3-17.3); White Blood Count 16.3 T/CUMM (4-12)
[2021-04-22 04:20] LABS: Albumin 2.5 G/DL (3.4-5.0); Bilirubin,Total 0.9 MG/DL (0.20-1.00); Osmolality,Calculated 287.7 MOS/KG (273-304); Potassium 4.6 MMOL/L (3.5-5.1); Total Protein 6.7 G/DL (6.4-8.2)
[2021-04-22 04:21] LABS: Hypochromia 1+; Lymphocytes 1 % (20-55); Segmented Neutrophils 96 % (50-85); Total Cells Counted 100
[2021-04-22 04:22] LABS: Microcytosis Slight; Ovalocytes Slight
[2021-04-22 04:25] LABS: ABG Base Excess 3.3 MMOL/L (-2.5-2.5); ABG HCO3 27.3 MMOL/L (20-26); ABG Oxygen Saturation 97.7 % (95-100); ABG PCO2 46.7 MM HG (35-48); ABG PH 7.397 (7.35-7.45); ABG PO2 98.3 MM HG (80-95); Allen Test Positive; Pt O2 Delivery Device BIPAP
[2021-04-22] MEDS: DORNASE ALFA 2.5 MG/2.5 ML VIAL RESP TX SCH ×2 (07:01→19:09)
[2021-04-22] MEDS: ASPIRIN CHEW 81 MG TABLET PO SCH (08:45)
[2021-04-22] MEDS: METOPROLOL TARTRATE 25 MG TABLET PER TUBE SCH ×2 (08:45→20:32)
[2021-04-22] MEDS: APIXABAN 5 MG TABLET PO SCH ×2 (08:45→20:32)
[2021-04-22] MEDS: FERROUS SULFATE 325 MG TABLET PO SCH (08:45)
[2021-04-22] MEDS: PANTOPRAZOLE 40 MG VIAL IV SCH ×2 (08:46→20:31)
[2021-04-22] MEDS: AMIODARONE 200 MG TABLET PO SCH ×2 (08:46→20:32)
[2021-04-22] MEDS: DESITIN 4OZ/NYSTATIN 15 GRAM MIXTURE PASTE TOP SCH ×2 (08:47→20:32)
[2021-04-22] MEDS: ESCITALOPRAM 10 MG TABLET PO SCH (20:32)
[2021-04-22] MEDS: ATORVASTATIN 80 MG TABLET PO SCH (20:32)
[2021-04-23] MEDS: INSULIN REGULAR 100 UNIT/ML SUBCUT SCH ×4 (00:16→18:33)
[2021-04-23] MEDS: ALBUTEROL 2.5 MG/3 ML NEB RESP TX SCH ×4 (00:45→19:25)
[2021-04-23 04:01] LABS: Allen Test Positive; Pt O2 Delivery Device BIPAP
[2021-04-23 04:02] LABS: ABG Base Excess 1.7 MMOL/L (-2.5-2.5); ABG HCO3 25.9 MMOL/L (20-26); ABG Oxygen Saturation 98.2 % (95-100); ABG PCO2 48.8 MM HG (35-48); ABG PH 7.361 (7.35-7.45); ABG TCO2 25.3 MMOL/L (23-27)
[2021-04-23 04:32] LABS: Basophils % 0.1 % (0.0-0.8); Eosinophils # 0.1 10*3/uL (0.0-0.87); Hematocrit 30.3 VOL% (35.7-47.0); Hemoglobin 9.3 GM/DL (12.0-16.0); Immature Granulocytes Absolute 0.11 #; Lymphocytes # 1.8 10*3/uL (1.4-4.0); Lymphocytes % 15.7 % (21.3-54.2); Mean Corpuscular HGB Conc 30.7 GM/DL (32-36); Mean Corpuscular Volume 93.8 FL (87-102); Mean Platelet Volume 12.2 FL (9.6-12.0); Monocytes % 9.9 % (1.7-12.7); Neutrophils % 72.3 % (38.7-73.9); Platelet Count 251 T/CUMM (130-400); Red Blood Count 3.23 MC/CUMM (3.8-5.5); Red Cell Distribution Width 14.8 % (9.3-17.3); White Blood Count 11.5 T/CUMM (4-12)
[2021-04-23 04:53] LABS: Calcium 8.8 MG/DL (8.5-10.1); Osmolality,Calculated 286.7 MOS/KG (273-304); Potassium 3.9 MMOL/L (3.5-5.1)
[2021-04-23] MEDS: DORNASE ALFA 2.5 MG/2.5 ML VIAL RESP TX SCH ×2 (07:07→19:25)
[2021-04-23] MEDS: AMIODARONE 200 MG TABLET PO SCH ×2 (09:55→20:53)
[2021-04-23] MEDS: APIXABAN 5 MG TABLET PO SCH ×2 (09:55→20:53)
[2021-04-23] MEDS: predniSONE 20 MG TABLET PO SCH (09:55)
[2021-04-23] MEDS: ASPIRIN CHEW 81 MG TABLET PO SCH (09:55)
[2021-04-23] MEDS: FERROUS SULFATE 325 MG TABLET PO SCH (09:55)
[2021-04-23] MEDS: DESITIN 4OZ/NYSTATIN 15 GRAM MIXTURE PASTE TOP SCH ×2 (09:55→20:52)
[2021-04-23] MEDS: METOPROLOL TARTRATE 25 MG TABLET PER TUBE SCH ×2 (09:55→20:53)
[2021-04-23] MEDS: PANTOPRAZOLE 40 MG VIAL IV SCH ×2 (09:58→20:52)
[2021-04-23] MEDS: ONDANSETRON 4 MG/2 ML VIAL IV PRN (15:30)
[2021-04-23] MEDS: ATORVASTATIN 80 MG TABLET PO SCH (20:52)
[2021-04-23] MEDS: ESCITALOPRAM 10 MG TABLET PO SCH (20:53)
[2021-04-24] MEDS: INSULIN REGULAR 100 UNIT/ML SUBCUT SCH ×4 (00:50→18:48)
[2021-04-24] MEDS: ALBUTEROL 2.5 MG/3 ML NEB RESP TX SCH ×4 (01:26→19:10)
[2021-04-24 04:04] LABS: Basophils % 0.1 % (0.0-0.8); Eosinophils # 0.1 10*3/uL (0.0-0.87); Eosinophils % 0.5 % (0.00-10.9); Hematocrit 32.2 VOL% (35.7-47.0); Immature Granulocytes % 0.4 %; Immature Granulocytes Absolute 0.04 #; Lymphocytes # 1.1 10*3/uL (1.4-4.0); Lymphocytes % 10.2 % (21.3-54.2); Mean Corpuscular HGB Conc 31.1 GM/DL (32-36); Mean Corpuscular Volume 93.9 FL (87-102); Mean Platelet Volume 11.6 FL (9.6-12.0); Monocytes % 8.5 % (1.7-12.7); Neutrophils % 80.3 % (38.7-73.9); Platelet Count 240 T/CUMM (130-400); Red Blood Count 3.43 MC/CUMM (3.8-5.5); Red Cell Distribution Width 14.7 % (9.3-17.3); White Blood Count 10.8 T/CUMM (4-12)
[2021-04-24 04:17] LABS: Calcium 8.7 MG/DL (8.5-10.1); Osmolality,Calculated 286.4 MOS/KG (273-304); Potassium 3.9 MMOL/L (3.5-5.1)
[2021-04-24] MEDS: PANTOPRAZOLE 40 MG VIAL IV SCH ×2 (08:05→22:07)
[2021-04-24] MEDS: METOPROLOL TARTRATE 25 MG TABLET PER TUBE SCH ×2 (08:06→22:06)
[2021-04-24] MEDS: predniSONE 20 MG TABLET PO SCH (08:06)
[2021-04-24] MEDS: FERROUS SULFATE 325 MG TABLET PO SCH (08:06)
[2021-04-24] MEDS: AMIODARONE 200 MG TABLET PO SCH ×2 (08:06→22:06)
[2021-04-24] MEDS: APIXABAN 5 MG TABLET PO SCH ×2 (08:06→22:06)
[2021-04-24] MEDS: ASPIRIN CHEW 81 MG TABLET PO SCH (08:06)
[2021-04-24] MEDS: DORNASE ALFA 2.5 MG/2.5 ML VIAL RESP TX SCH ×2 (08:10→19:20)
[2021-04-24] MEDS: DESITIN 4OZ/NYSTATIN 15 GRAM MIXTURE PASTE TOP SCH ×2 (08:37→22:07)
[2021-04-24] MEDS: FUROSEMIDE 20 MG TABLET PO SCH (15:58)
[2021-04-24] MEDS: ESCITALOPRAM 10 MG TABLET PO SCH (22:06)
[2021-04-24] MEDS: ATORVASTATIN 80 MG TABLET PO SCH (22:06)
[2021-04-25] MEDS: ALBUTEROL 2.5 MG/3 ML NEB RESP TX SCH ×4 (01:00→19:30)
[2021-04-25] MEDS: INSULIN REGULAR 100 UNIT/ML SUBCUT SCH ×4 (06:48→18:07)
[2021-04-25] MEDS: DORNASE ALFA 2.5 MG/2.5 ML VIAL RESP TX SCH ×2 (07:07→19:40)
[2021-04-25] MEDS: APIXABAN 5 MG TABLET PO SCH ×2 (08:45→21:21)
[2021-04-25] MEDS: FERROUS SULFATE 325 MG TABLET PO SCH (08:45)
[2021-04-25] MEDS: ASPIRIN CHEW 81 MG TABLET PO SCH (08:45)
[2021-04-25] MEDS: predniSONE 20 MG TABLET PO SCH (08:45)
[2021-04-25] MEDS: METOPROLOL TARTRATE 25 MG TABLET PER TUBE SCH ×2 (08:45→21:22)
[2021-04-25] MEDS: FUROSEMIDE 20 MG TABLET PO SCH (08:46)
[2021-04-25] MEDS: AMIODARONE 200 MG TABLET PO SCH ×2 (08:46→21:22)
[2021-04-25] MEDS: PANTOPRAZOLE 40 MG VIAL IV SCH ×2 (08:48→21:23)
[2021-04-25] MEDS: DESITIN 4OZ/NYSTATIN 15 GRAM MIXTURE PASTE TOP SCH ×2 (08:49→21:22)
[2021-04-25] MEDS ORDERED: ALUM/MAG/SIMETH/LIDO VISC 1:1 30 ML BOTTLE PO ONE (13:33)
[2021-04-25] MEDS: ATORVASTATIN 80 MG TABLET PO SCH (21:21)
[2021-04-25] MEDS: ESCITALOPRAM 10 MG TABLET PO SCH (21:22)
[2021-04-26] MEDS: ALBUTEROL 2.5 MG/3 ML NEB RESP TX SCH ×4 (00:05→19:55)
[2021-04-26] MEDS: INSULIN REGULAR 100 UNIT/ML SUBCUT SCH ×3 (00:14→12:18)
[2021-04-26] MEDS: DORNASE ALFA 2.5 MG/2.5 ML VIAL RESP TX SCH ×2 (07:36→20:11)
[2021-04-26] MEDS ORDERED: DEXTROSE 10% 250 ML BAG IV PRN (11:00)
[2021-04-26] MEDS: AMIODARONE 200 MG TABLET PO SCH ×2 (11:13→21:40)
[2021-04-26] MEDS: FERROUS SULFATE 325 MG TABLET PO SCH (11:13)
[2021-04-26] MEDS: ASPIRIN CHEW 81 MG TABLET PO SCH (11:13)
[2021-04-26] MEDS: APIXABAN 5 MG TABLET PO SCH ×2 (11:15→21:41)
[2021-04-26] MEDS: DESITIN 4OZ/NYSTATIN 15 GRAM MIXTURE PASTE TOP SCH ×2 (11:16→21:45)
[2021-04-26] MEDS: PANTOPRAZOLE 40 MG VIAL IV SCH ×2 (11:16→21:45)
[2021-04-26] MEDS: FUROSEMIDE 20 MG TABLET PO SCH (11:16)
[2021-04-26] MEDS: predniSONE 20 MG TABLET PO SCH (11:16)
[2021-04-26] MEDS: METOPROLOL TARTRATE 25 MG TABLET PER TUBE SCH ×2 (11:16→21:41)
[2021-04-26] MEDS: ATORVASTATIN 80 MG TABLET PO SCH (21:40)
[2021-04-26] MEDS: ESCITALOPRAM 10 MG TABLET PO SCH (21:41)
[2021-04-27] MEDS: ALBUTEROL 2.5 MG/3 ML NEB RESP TX SCH ×4 (01:50→19:50)
[2021-04-27] MEDS: DORNASE ALFA 2.5 MG/2.5 ML VIAL RESP TX SCH ×2 (07:40→20:00)
[2021-04-27] MEDS: ASPIRIN CHEW 81 MG TABLET PO SCH (11:51)
[2021-04-27] MEDS: AMIODARONE 200 MG TABLET PO SCH ×2 (11:51→20:56)
[2021-04-27] MEDS: FERROUS SULFATE 325 MG TABLET PO SCH (11:51)
[2021-04-27] MEDS: APIXABAN 5 MG TABLET PO SCH ×2 (11:52→20:57)
[2021-04-27] MEDS: FUROSEMIDE 20 MG TABLET PO SCH (11:52)
[2021-04-27] MEDS: DESITIN 4OZ/NYSTATIN 15 GRAM MIXTURE PASTE TOP SCH ×2 (11:52→21:01)
[2021-04-27] MEDS: PANTOPRAZOLE 40 MG VIAL IV SCH ×2 (11:52→20:57)
[2021-04-27] MEDS: predniSONE 20 MG TABLET PO SCH (11:52)
[2021-04-27] MEDS: METOPROLOL TARTRATE 25 MG TABLET PER TUBE SCH ×2 (11:52→20:57)
[2021-04-27] MEDS: ONDANSETRON 4 MG/2 ML VIAL IV PRN (18:22)
[2021-04-27] MEDS: ESCITALOPRAM 10 MG TABLET PO SCH (20:57)
[2021-04-27] MEDS: ATORVASTATIN 80 MG TABLET PO SCH (20:57)
[2021-04-28] MEDS: ALBUTEROL 2.5 MG/3 ML NEB RESP TX SCH ×4 (01:10→19:05)
[2021-04-28] MEDS: DORNASE ALFA 2.5 MG/2.5 ML VIAL RESP TX SCH ×2 (07:32→19:10)
[2021-04-28] MEDS: FERROUS SULFATE 325 MG TABLET PO SCH (14:40)
[2021-04-28] MEDS: AMIODARONE 200 MG TABLET PO SCH ×2 (14:41→20:50)
[2021-04-28] MEDS: METOPROLOL TARTRATE 25 MG TABLET PER TUBE SCH ×2 (14:41→20:50)
[2021-04-28] MEDS: DESITIN 4OZ/NYSTATIN 15 GRAM MIXTURE PASTE TOP SCH ×2 (14:41→20:51)
[2021-04-28] MEDS: ASPIRIN CHEW 81 MG TABLET PO SCH (14:41)
[2021-04-28] MEDS: FUROSEMIDE 20 MG TABLET PO SCH (14:41)
[2021-04-28] MEDS: PANTOPRAZOLE 40 MG VIAL IV SCH (14:41)
[2021-04-28] MEDS: APIXABAN 5 MG TABLET PO SCH ×2 (14:41→20:50)
[2021-04-28] MEDS: predniSONE 20 MG TABLET PO SCH (14:41)
[2021-04-28] MEDS: ESCITALOPRAM 10 MG TABLET PO SCH (20:50)
[2021-04-28] MEDS: PANTOPRAZOLE 40 MG TABLET PO SCH (20:50)
[2021-04-28] MEDS: ATORVASTATIN 80 MG TABLET PO SCH (20:50)
[2021-04-29] MEDS: ALBUTEROL 2.5 MG/3 ML NEB RESP TX SCH ×4 (00:05→19:50)
[2021-04-29] MEDS: DORNASE ALFA 2.5 MG/2.5 ML VIAL RESP TX SCH ×2 (08:14→20:00)
[2021-04-29] MEDS: ASPIRIN CHEW 81 MG TABLET PO SCH (10:15)
[2021-04-29] MEDS: FERROUS SULFATE 325 MG TABLET PO SCH (10:15)
[2021-04-29] MEDS: PANTOPRAZOLE 40 MG TABLET PO SCH ×2 (10:15→22:09)
[2021-04-29] MEDS: METOPROLOL TARTRATE 25 MG TABLET PER TUBE SCH ×2 (10:16→22:09)
[2021-04-29] MEDS: FUROSEMIDE 20 MG TABLET PO SCH (10:16)
[2021-04-29] MEDS: predniSONE 20 MG TABLET PO SCH (10:16)
[2021-04-29] MEDS: APIXABAN 5 MG TABLET PO SCH ×2 (10:16→22:09)
[2021-04-29] MEDS: AMIODARONE 200 MG TABLET PO SCH ×2 (10:16→22:09)
[2021-04-29] MEDS: DESITIN 4OZ/NYSTATIN 15 GRAM MIXTURE PASTE TOP SCH ×2 (10:19→22:09)
[2021-04-29] MEDS: ATORVASTATIN 80 MG TABLET PO SCH (22:08)
[2021-04-29] MEDS: ESCITALOPRAM 10 MG TABLET PO SCH (22:09)
[2021-04-30] MEDS: ALBUTEROL 2.5 MG/3 ML NEB RESP TX SCH ×4 (01:34→19:52)
[2021-04-30 06:32] LABS: Basophils % 0.3 % (0.0-0.8); Eosinophils # 0.1 10*3/uL (0.0-0.87); Eosinophils % 1.5 % (0.00-10.9); Hematocrit 35.7 VOL% (35.7-47.0); Hemoglobin 10.6 GM/DL (12.0-16.0); Immature Granulocytes % 0.5 %; Immature Granulocytes Absolute 0.05 #; Lymphocytes # 1.6 10*3/uL (1.4-4.0); Lymphocytes % 17.6 % (21.3-54.2); Mean Corpuscular HGB Conc 29.7 GM/DL (32-36); Mean Corpuscular Volume 95.7 FL (87-102); Mean Platelet Volume 11.6 FL (9.6-12.0); Monocytes % 7.2 % (1.7-12.7); Neutrophils % 72.9 % (38.7-73.9); Platelet Count 139 T/CUMM (130-400); Red Blood Count 3.73 MC/CUMM (3.8-5.5); Red Cell Distribution Width 15.9 % (9.3-17.3); White Blood Count 9.2 T/CUMM (4-12)
[2021-04-30 06:51] LABS: Osmolality,Calculated 268.2 MOS/KG (273-304); Potassium 3.4 MMOL/L (3.5-5.1)
[2021-04-30] MEDS: DORNASE ALFA 2.5 MG/2.5 ML VIAL RESP TX SCH ×2 (07:26→20:05)
[2021-04-30] MEDS: PANTOPRAZOLE 40 MG TABLET PO SCH ×2 (09:44→22:19)
[2021-04-30] MEDS: AMIODARONE 200 MG TABLET PO SCH ×2 (09:44→22:18)
[2021-04-30] MEDS: FUROSEMIDE 20 MG TABLET PO SCH (09:44)
[2021-04-30] MEDS: FERROUS SULFATE 325 MG TABLET PO SCH (09:44)
[2021-04-30] MEDS: predniSONE 20 MG TABLET PO SCH (09:44)
[2021-04-30] MEDS: APIXABAN 5 MG TABLET PO SCH ×2 (09:44→22:18)
[2021-04-30] MEDS: ASPIRIN CHEW 81 MG TABLET PO SCH (09:45)
[2021-04-30] MEDS: METOPROLOL TARTRATE 25 MG TABLET PER TUBE SCH ×2 (09:45→22:18)
[2021-04-30] MEDS: DESITIN 4OZ/NYSTATIN 15 GRAM MIXTURE PASTE TOP SCH ×2 (09:55→22:19)
[2021-04-30] MEDS ORDERED: POTASSIUM CHLORIDE 20 MEQ TABLET PO ONE (13:59)
[2021-04-30] MEDS ORDERED: TUBERCULIN SKIN TEST 0.1 ML SYRINGE INTRADERM ONE (14:19)
[2021-04-30] MEDS: ATORVASTATIN 80 MG TABLET PO SCH (22:18)
[2021-04-30] MEDS: ESCITALOPRAM 10 MG TABLET PO SCH (22:19)
[2021-05-01] MEDS: ALBUTEROL 2.5 MG/3 ML NEB RESP TX SCH ×4 (01:24→20:52)
[2021-05-01] MEDS: DORNASE ALFA 2.5 MG/2.5 ML VIAL RESP TX SCH (07:15)
[2021-05-01] MEDS: FUROSEMIDE 20 MG TABLET PO SCH (10:30)
[2021-05-01] MEDS: ASPIRIN CHEW 81 MG TABLET PO SCH (10:35)
[2021-05-01] MEDS: AMIODARONE 200 MG TABLET PO SCH ×2 (10:35→21:04)
[2021-05-01] MEDS: DESITIN 4OZ/NYSTATIN 15 GRAM MIXTURE PASTE TOP SCH ×2 (10:35→21:05)
[2021-05-01] MEDS: FERROUS SULFATE 325 MG TABLET PO SCH (10:35)
[2021-05-01] MEDS: predniSONE 20 MG TABLET PO SCH (10:35)
[2021-05-01] MEDS: METOPROLOL TARTRATE 25 MG TABLET PER TUBE SCH ×2 (10:35→21:03)
[2021-05-01] MEDS: APIXABAN 5 MG TABLET PO SCH ×2 (10:40→21:03)
[2021-05-01] MEDS: POTASSIUM CHLORIDE 20 MEQ TABLET PO SCH (10:40)
[2021-05-01] MEDS: PANTOPRAZOLE 40 MG TABLET PO SCH ×2 (10:40→21:04)
[2021-05-01] MEDS: ATORVASTATIN 80 MG TABLET PO SCH (21:03)
[2021-05-01] MEDS: ESCITALOPRAM 10 MG TABLET PO SCH (21:03)
[2021-05-02] MEDS: ALBUTEROL 2.5 MG/3 ML NEB RESP TX SCH ×4 (01:45→20:55)
[2021-05-02] MEDS: DORNASE ALFA 2.5 MG/2.5 ML VIAL RESP TX SCH ×3 (01:50→21:02)
[2021-05-02] MEDS: FERROUS SULFATE 325 MG TABLET PO SCH (08:59)
[2021-05-02] MEDS: ASPIRIN CHEW 81 MG TABLET PO SCH (08:59)
[2021-05-02] MEDS: APIXABAN 5 MG TABLET PO SCH ×2 (09:00→21:49)
[2021-05-02] MEDS: AMIODARONE 200 MG TABLET PO SCH ×2 (09:00→21:49)
[2021-05-02] MEDS: POTASSIUM CHLORIDE 20 MEQ TABLET PO SCH (09:00)
[2021-05-02] MEDS: FUROSEMIDE 20 MG TABLET PO SCH (09:02)
[2021-05-02] MEDS: METOPROLOL TARTRATE 25 MG TABLET PER TUBE SCH ×2 (09:02→21:49)
[2021-05-02] MEDS: PANTOPRAZOLE 40 MG TABLET PO SCH ×2 (09:02→21:50)
[2021-05-02] MEDS: predniSONE 20 MG TABLET PO SCH (09:02)
[2021-05-02] MEDS: buPROPion 75 MG TABLET PO SCH ×2 (09:03→21:50)
[2021-05-02] MEDS: DESITIN 4OZ/NYSTATIN 15 GRAM MIXTURE PASTE TOP SCH ×2 (09:03→21:49)
[2021-05-02] MEDS: ESCITALOPRAM 10 MG TABLET PO SCH (21:49)
[2021-05-02] MEDS: ATORVASTATIN 80 MG TABLET PO SCH (21:49)
[2021-05-03] MEDS: ALBUTEROL 2.5 MG/3 ML NEB RESP TX SCH ×4 (01:15→22:33)
[2021-05-03] MEDS: DORNASE ALFA 2.5 MG/2.5 ML VIAL RESP TX SCH ×2 (08:40→22:33)
[2021-05-03] MEDS: buPROPion 75 MG TABLET PO SCH (09:35)
[2021-05-03] MEDS: APIXABAN 5 MG TABLET PO SCH (09:36)
[2021-05-03] MEDS: FUROSEMIDE 20 MG TABLET PO SCH (09:36)
[2021-05-03] MEDS: FERROUS SULFATE 325 MG TABLET PO SCH (09:36)
[2021-05-03] MEDS: predniSONE 20 MG TABLET PO SCH (09:36)
[2021-05-03] MEDS: ASPIRIN CHEW 81 MG TABLET PO SCH (09:36)
[2021-05-03] MEDS: METOPROLOL TARTRATE 25 MG TABLET PER TUBE SCH (09:36)
[2021-05-03] MEDS: AMIODARONE 200 MG TABLET PO SCH (09:36)
[2021-05-03] MEDS: POTASSIUM CHLORIDE 20 MEQ TABLET PO SCH (09:36)
[2021-05-03] MEDS: DESITIN 4OZ/NYSTATIN 15 GRAM MIXTURE PASTE TOP SCH (09:37)
[2021-05-03] MEDS: PANTOPRAZOLE 40 MG TABLET PO SCH (09:37)
[2021-05-04] MEDS: ALBUTEROL 2.5 MG/3 ML NEB RESP TX SCH ×5 (03:02→19:25)
[2021-05-04] MEDS: AMIODARONE 200 MG TABLET PO SCH ×3 (06:08→22:26)
[2021-05-04] MEDS: ESCITALOPRAM 10 MG TABLET PO SCH ×2 (06:09→22:26)
[2021-05-04] MEDS: ATORVASTATIN 80 MG TABLET PO SCH ×2 (06:09→22:26)
[2021-05-04] MEDS: buPROPion 75 MG TABLET PO SCH ×3 (06:09→22:26)
[2021-05-04] MEDS: APIXABAN 5 MG TABLET PO SCH ×3 (06:09→22:27)
[2021-05-04] MEDS: DESITIN 4OZ/NYSTATIN 15 GRAM MIXTURE PASTE TOP SCH ×3 (06:09→22:30)
[2021-05-04] MEDS: METOPROLOL TARTRATE 25 MG TABLET PER TUBE SCH ×2 (06:09→09:22)
[2021-05-04] MEDS: PANTOPRAZOLE 40 MG TABLET PO SCH ×3 (06:09→22:27)
[2021-05-04] MEDS: DORNASE ALFA 2.5 MG/2.5 ML VIAL RESP TX SCH (07:29)
[2021-05-04] MEDS: FERROUS SULFATE 325 MG TABLET PO SCH (09:21)
[2021-05-04] MEDS: POTASSIUM CHLORIDE 20 MEQ TABLET PO SCH (09:21)
[2021-05-04] MEDS: ASPIRIN CHEW 81 MG TABLET PO SCH (09:21)
[2021-05-04] MEDS: predniSONE 20 MG TABLET PO SCH (09:21)
[2021-05-04] MEDS: FUROSEMIDE 20 MG TABLET PO SCH (09:21)
[2021-05-04] MEDS: ACETAMINOPHEN 325 MG TABLET PO PRN (11:30)
[2021-05-04] MEDS ORDERED: ONDANSETRON ODT 4 MG TABLET PO PRN (14:49)
[2021-05-04] MEDS: DOCUSATE SODIUM 100 MG CAPSULE PO SCH (22:27)
[2021-05-04] MEDS: METOPROLOL TARTRATE 25 MG TABLET PO SCH (22:27)
[2021-05-05] MEDS: ALBUTEROL 2.5 MG/3 ML NEB RESP TX SCH ×3 (03:27→15:15)
[2021-05-05 04:46] LABS: Basophils % 0.3 % (0.0-0.8); Eosinophils # 0.1 10*3/uL (0.0-0.87); Eosinophils % 0.7 % (0.00-10.9); Hematocrit 34.2 VOL% (35.7-47.0); Hemoglobin 10.3 GM/DL (12.0-16.0); Immature Granulocytes % 0.3 %; Immature Granulocytes Absolute 0.02 #; Lymphocytes # 1.8 10*3/uL (1.4-4.0); Lymphocytes % 24.5 % (21.3-54.2); Mean Corpuscular HGB Conc 30.1 GM/DL (32-36); Mean Corpuscular Volume 95.5 FL (87-102); Mean Platelet Volume 11.5 FL (9.6-12.0); Monocytes % 7.8 % (1.7-12.7); Neutrophils % 66.4 % (38.7-73.9); Platelet Count 163 T/CUMM (130-400); Red Blood Count 3.58 MC/CUMM (3.8-5.5); Red Cell Distribution Width 16.4 % (9.3-17.3); White Blood Count 7.4 T/CUMM (4-12)
[2021-05-05 05:14] LABS: Calcium 8.8 MG/DL (8.5-10.1); Osmolality,Calculated 273.7 MOS/KG (273-304)
[2021-05-05] MEDS: DESITIN 4OZ/NYSTATIN 15 GRAM MIXTURE PASTE TOP SCH (08:07)
[2021-05-05] MEDS: buPROPion 75 MG TABLET PO SCH (09:22)
[2021-05-05] MEDS: METOPROLOL TARTRATE 25 MG TABLET PO SCH (09:22)
[2021-05-05] MEDS: APIXABAN 5 MG TABLET PO SCH (09:22)
[2021-05-05] MEDS: PANTOPRAZOLE 40 MG TABLET PO SCH (09:22)
[2021-05-05] MEDS: POTASSIUM CHLORIDE 20 MEQ TABLET PO SCH (09:22)
[2021-05-05] MEDS: FUROSEMIDE 20 MG TABLET PO SCH (09:22)
[2021-05-05] MEDS: ASPIRIN CHEW 81 MG TABLET PO SCH (09:22)
[2021-05-05] MEDS: AMIODARONE 200 MG TABLET PO SCH (09:23)
[2021-05-05] MEDS: DOCUSATE SODIUM 100 MG CAPSULE PO SCH (09:23)
[2021-05-06] MEDS: ALBUTEROL 2.5 MG/3 ML NEB RESP TX SCH ×2 (01:55→01:56)
[2021-05-06] MEDS: AMIODARONE 200 MG TABLET PO SCH ×3 (02:36→22:21)
[2021-05-06] MEDS: DOCUSATE SODIUM 100 MG CAPSULE PO SCH ×3 (02:36→22:21)
[2021-05-06] MEDS: APIXABAN 5 MG TABLET PO SCH ×3 (02:36→22:21)
[2021-05-06] MEDS: ATORVASTATIN 80 MG TABLET PO SCH ×2 (02:37→22:21)
[2021-05-06] MEDS: buPROPion 75 MG TABLET PO SCH ×3 (02:37→22:21)
[2021-05-06] MEDS: PANTOPRAZOLE 40 MG TABLET PO SCH ×3 (02:37→22:21)
[2021-05-06] MEDS: METOPROLOL TARTRATE 25 MG TABLET PO SCH ×3 (02:37→22:22)
[2021-05-06] MEDS: ESCITALOPRAM 10 MG TABLET PO SCH ×2 (02:37→22:21)
[2021-05-06] MEDS: DESITIN 4OZ/NYSTATIN 15 GRAM MIXTURE PASTE TOP SCH ×3 (02:37→22:22)
[2021-05-06] MEDS: ASPIRIN CHEW 81 MG TABLET PO SCH (08:34)
[2021-05-06] MEDS: POTASSIUM CHLORIDE 20 MEQ TABLET PO SCH (08:34)
[2021-05-06] MEDS: FUROSEMIDE 20 MG TABLET PO SCH (08:35)
[2021-05-07 05:47] LABS: Basophils % 0.2 % (0.0-0.8); Eosinophils # 0.3 10*3/uL (0.0-0.87); Eosinophils % 4.5 % (0.00-10.9); Hemoglobin 9.8 GM/DL (12.0-16.0); Immature Granulocytes % 0.3 %; Immature Granulocytes Absolute 0.02 #; Lymphocytes # 1.5 10*3/uL (1.4-4.0); Lymphocytes % 24.4 % (21.3-54.2); Mean Corpuscular HGB Conc 30.6 GM/DL (32-36); Mean Platelet Volume 11.5 FL (9.6-12.0); Neutrophils % 62.6 % (38.7-73.9); Platelet Count 146 T/CUMM (130-400); Red Cell Distribution Width 16.4 % (9.3-17.3)
[2021-05-07 06:08] LABS: Calcium 8.8 MG/DL (8.5-10.1); Osmolality,Calculated 276.4 MOS/KG (273-304)
[2021-05-07] MEDS: METOPROLOL TARTRATE 25 MG TABLET PO SCH ×2 (08:24→21:59)
[2021-05-07] MEDS: POTASSIUM CHLORIDE 20 MEQ TABLET PO PRN ×4 (08:24→14:27)
[2021-05-07] MEDS: APIXABAN 5 MG TABLET PO SCH ×2 (08:24→22:00)
[2021-05-07] MEDS: buPROPion 75 MG TABLET PO SCH ×2 (08:24→21:59)
[2021-05-07] MEDS: PANTOPRAZOLE 40 MG TABLET PO SCH ×2 (08:24→21:59)
[2021-05-07] MEDS: FUROSEMIDE 20 MG TABLET PO SCH (08:24)
[2021-05-07] MEDS: DOCUSATE SODIUM 100 MG CAPSULE PO SCH ×2 (08:24→21:59)
[2021-05-07] MEDS: ASPIRIN CHEW 81 MG TABLET PO SCH (08:24)
[2021-05-07] MEDS: AMIODARONE 200 MG TABLET PO SCH ×2 (08:24→21:59)
[2021-05-07] MEDS: DESITIN 4OZ/NYSTATIN 15 GRAM MIXTURE PASTE TOP SCH ×2 (08:24→22:00)
[2021-05-07] MEDS: ACETAMINOPHEN 325 MG TABLET PO PRN (09:18)
[2021-05-07] MEDS: POTASSIUM CHLORIDE 20 MEQ TABLET PO SCH (09:50)
[2021-05-07] MEDS: ALPRAZolam 0.5 MG TABLET PO PRN ×2 (10:43→21:59)
[2021-05-07 16:18] LABS: Bilirubin,Urine Negative (Negative); Blood, Urine Negative (Negative); Glucose,Urine (UA) Negative (Negative); Hyaline Casts,Urine 3 /LPF (0-3); Ketones,Urine Negative (Negative); Mucus,Urine Occasional /LPF (Occasional); Nitrite,Urine Negative (Negative); Protein,Urine Negative; RBC,Urine 12 /HPF (0-4); Squamous Epithelial Cell,Urine Occasional /HPF (0-10); Urine Appearance Slightly Hazy (Clear); Urine Color Straw (Yellow); Urine Specific Gravity 1.004 (1.001-1.035); Urine Urobilinogen < 2.0 EU/DL (<2.0)
[2021-05-07] MEDS: ATORVASTATIN 80 MG TABLET PO SCH (21:59)
[2021-05-07] MEDS: ESCITALOPRAM 10 MG TABLET PO SCH (21:59)
[2021-05-08] MEDS: PANTOPRAZOLE 40 MG TABLET PO SCH ×2 (08:41→21:52)
[2021-05-08] MEDS: FUROSEMIDE 20 MG TABLET PO SCH (08:41)
[2021-05-08] MEDS: AMIODARONE 200 MG TABLET PO SCH ×2 (08:41→21:52)
[2021-05-08] MEDS: buPROPion 75 MG TABLET PO SCH ×2 (08:41→21:52)
[2021-05-08] MEDS: ASPIRIN CHEW 81 MG TABLET PO SCH (08:41)
[2021-05-08] MEDS: POTASSIUM CHLORIDE 20 MEQ TABLET PO SCH (08:41)
[2021-05-08] MEDS: APIXABAN 5 MG TABLET PO SCH ×2 (08:41→21:52)
[2021-05-08] MEDS: DESITIN 4OZ/NYSTATIN 15 GRAM MIXTURE PASTE TOP SCH ×2 (08:41→21:52)
[2021-05-08] MEDS: DOCUSATE SODIUM 100 MG CAPSULE PO SCH ×2 (08:42→21:52)
[2021-05-08] MEDS: METOPROLOL TARTRATE 25 MG TABLET PO SCH ×2 (08:42→21:51)
[2021-05-08] MEDS: ACETAMINOPHEN 325 MG TABLET PO PRN (17:48)
[2021-05-08] MEDS: ATORVASTATIN 80 MG TABLET PO SCH (21:51)
[2021-05-08] MEDS: ESCITALOPRAM 10 MG TABLET PO SCH (21:51)
[2021-05-09] MEDS: APIXABAN 5 MG TABLET PO SCH (09:14)
[2021-05-09] MEDS: METOPROLOL TARTRATE 25 MG TABLET PO SCH (09:14)
[2021-05-09] MEDS: ASPIRIN CHEW 81 MG TABLET PO SCH (09:14)
[2021-05-09] MEDS: AMIODARONE 200 MG TABLET PO SCH (09:14)
[2021-05-09] MEDS: buPROPion 75 MG TABLET PO SCH (09:15)
[2021-05-09] MEDS: POTASSIUM CHLORIDE 20 MEQ TABLET PO SCH (09:15)
[2021-05-09] MEDS: PANTOPRAZOLE 40 MG TABLET PO SCH (09:15)
[2021-05-09] MEDS: DOCUSATE SODIUM 100 MG CAPSULE PO SCH (09:16)
[2021-05-09] MEDS: FUROSEMIDE 20 MG TABLET PO SCH (09:16)
[2021-05-09] MEDS: DESITIN 4OZ/NYSTATIN 15 GRAM MIXTURE PASTE TOP SCH (09:16)
[2021-05-09 13:55] VITALS: BP 108/69
== END 2021-05-09 14:30 | DRG 163 ==
LOC: N.ED 14:09 → N.EDINP 16:22 → SUATTDRO 16:22 → N.CC 17:26 → N.TELEN 04-24 17:41
PROVIDERS: ADMIT Internal Medicine; ATTEND Emergency Medicine
PROC: IRTHORA (2021-04-10 13:00)

== ENCOUNTER 2021-08-08 12:11 | Inpatient (IN) ==
[2021-08-08 13:58] LABS: Albumin 3.1 G/DL (3.4-5.0); Bilirubin,Total 0.5 MG/DL (0.20-1.00); Calcium 8.7 MG/DL (8.5-10.1); Osmolality,Calculated 289.1 MOS/KG (273-304); Potassium 5.4 MMOL/L (3.5-5.1); Total Protein 6.8 G/DL (6.4-8.2)
[2021-08-08 14:13] LABS: Arterial Base Excess iSTAT 3 MMOL/L (-2.5-2.5); Arterial Bicarbonate iSTAT 29.3 MMOL/L (20-26); Arterial O2 Saturation iSTAT 93 % (95-100); Arterial PCO2 iSTAT 53 MM HG (35-48); Arterial PO2 iSTAT 71 MM HG (80-95); Arterial Total CO2 iSTAT 31 MMO/L (23-27); Arterial pH iSTAT 7.353 (7.35-7.45)
[2021-08-08 14:44] LABS: PT Patient Result 10.8 SECS (10.5-12.0)
[2021-08-08 14:50] LABS: Basophils # 0.1 10*3/uL (0.0-0.2); Basophils % 0.9 % (0.0-0.8); Eosinophils # 0.3 10*3/uL (0.0-0.87); Eosinophils % 3.1 % (0.00-10.9); Hematocrit 29.8 VOL% (35.7-47.0); Immature Granulocytes % 0.3 %; Immature Granulocytes Absolute 0.02 #; Lymphocytes % 25.1 % (21.3-54.2); Mean Corpuscular HGB Conc 30.2 GM/DL (32-36); Mean Corpuscular Volume 94.6 FL (87-102); Mean Platelet Volume 11.2 FL (9.6-12.0); Monocytes # 0.7 10*3/uL (0.11-0.8); Monocytes % 8.2 % (1.7-12.7); Neutrophils % 62.4 % (38.7-73.9); Platelet Count 288 T/CUMM (130-400); Red Blood Count 3.15 MC/CUMM (3.8-5.5); Red Cell Distribution Width 19.1 % (9.3-17.3)
[2021-08-08] MEDS ORDERED: FUROSEMIDE 40 MG/4 ML VIAL IV STA (14:54)
[2021-08-08] MEDS ORDERED: ACETAMINOPHEN 325 MG TABLET PO PRN (15:49)
[2021-08-08] MEDS ORDERED: ONDANSETRON 4 MG/2 ML VIAL IV PRN (15:49)
[2021-08-08] MEDS ORDERED: GLUCAGON 1 MG VIAL IM PRN ×2 (15:49)
[2021-08-08] MEDS ORDERED: DEXTROSE 50% 25 GM/50 ML VIAL IV PRN (15:49)
[2021-08-08] MEDS ORDERED: DEXTROSE 10% 250 ML BAG IV PRN (15:56)
[2021-08-08] MEDS ORDERED: ALBUTEROL/IPRATROPIUM 3 ML NEB RESP TX PRN (16:05)
[2021-08-08] MEDS ORDERED: HydrOXYzine PAMOATE 25 MG CAPSULE PO PRN (16:05)
[2021-08-08] MEDS ORDERED: DOCUSATE SODIUM 100 MG CAPSULE PO PRN (16:05)
[2021-08-08] MEDS: ALBUTEROL 2.5 MG/3 ML NEB RESP TX SCH (19:25)
[2021-08-08] MEDS: ATORVASTATIN 80 MG TABLET PO SCH (21:14)
[2021-08-08] MEDS: allopurinoL 100 MG TABLET PO SCH (21:14)
[2021-08-08] MEDS: APIXABAN 5 MG TABLET PO SCH (21:14)
[2021-08-08] MEDS: GABAPENTIN 300 MG CAPSULE PO SCH (21:14)
[2021-08-08] MEDS: CELECOXIB 100 MG PO SCH (21:15)
[2021-08-08] MEDS: NYSTATIN POWDER 15 GM BOTTLE TOP SCH (21:15)
[2021-08-09] MEDS: ALBUTEROL 2.5 MG/3 ML NEB RESP TX SCH ×5 (00:04→18:54)
[2021-08-09 04:33] LABS: Basophils # 0.1 10*3/uL (0.0-0.2); Eosinophils # 0.3 10*3/uL (0.0-0.87); Eosinophils % 2.8 % (0.00-10.9); Hematocrit 27.7 VOL% (35.7-47.0); Hemoglobin 8.3 GM/DL (12.0-16.0); Immature Granulocytes % 0.3 %; Immature Granulocytes Absolute 0.03 #; Lymphocytes # 2.4 10*3/uL (1.4-4.0); Lymphocytes % 27.3 % (21.3-54.2); Mean Corpuscular Volume 94.5 FL (87-102); Mean Platelet Volume 11.5 FL (9.6-12.0); Monocytes # 0.7 10*3/uL (0.11-0.8); Monocytes % 8.1 % (1.7-12.7); Neutrophils % 60.5 % (38.7-73.9); Platelet Count 270 T/CUMM (130-400); Red Blood Count 2.93 MC/CUMM (3.8-5.5); White Blood Count 8.9 T/CUMM (4-12)
[2021-08-09 04:54] LABS: Albumin 2.6 G/DL (3.4-5.0); Bilirubin,Total 0.6 MG/DL (0.20-1.00); Osmolality,Calculated 286.4 MOS/KG (273-304); Potassium 4.9 MMOL/L (3.5-5.1); Risk Ratio 2.89; Thyroid Stimulating Hormone 4.47 uIU/ml (0.358-3.74); Total Protein 6.1 G/DL (6.4-8.2); VLDL Cholesterol 10.6 MG/DL
[2021-08-09 05:34] LABS: Platelet Estimate Adequate
[2021-08-09 05:35] LABS: Anisocytosis 1+; Macrocytosis 1+
[2021-08-09] MEDS: LEVOTHYROXINE 75 MCG TABLET PO SCH (05:46)
[2021-08-09 08:28] LABS: Free T4 (Free Thyroxine) 1.17 NG/DL (0.76-1.46)
[2021-08-09] MEDS: METOPROLOL SUCCINATE XL 25 MG TABLET PO SCH (08:30)
[2021-08-09] MEDS: AMIODARONE 200 MG TABLET PO SCH (08:30)
[2021-08-09] MEDS: OXYBUTYNIN XL 15 MG TABLET PO SCH (08:30)
[2021-08-09] MEDS: FUROSEMIDE 40 MG/4 ML VIAL IV SCH ×2 (08:30→16:51)
[2021-08-09] MEDS: APIXABAN 5 MG TABLET PO SCH ×2 (08:30→20:34)
[2021-08-09] MEDS: allopurinoL 100 MG TABLET PO SCH ×2 (08:30→20:34)
[2021-08-09] MEDS: CELECOXIB 100 MG PO SCH ×2 (08:31→20:34)
[2021-08-09] MEDS: NYSTATIN POWDER 15 GM BOTTLE TOP SCH ×2 (08:31→20:34)
[2021-08-09] MEDS: GABAPENTIN 300 MG CAPSULE PO SCH (20:33)
[2021-08-09] MEDS: ATORVASTATIN 80 MG TABLET PO SCH (20:34)
[2021-08-10] MEDS: ALBUTEROL 2.5 MG/3 ML NEB RESP TX SCH ×7 (00:09→23:54)
[2021-08-10] MEDS: LEVOTHYROXINE 75 MCG TABLET PO SCH (06:46)
[2021-08-10] MEDS ORDERED: PNEUMOCOCCAL VACCINE (13 VALENT) 0.5 ML SYRINGE IM ONE (09:00)
[2021-08-10] MEDS: METOPROLOL SUCCINATE XL 25 MG TABLET PO SCH (10:08)
[2021-08-10] MEDS: APIXABAN 5 MG TABLET PO SCH ×2 (10:08→20:30)
[2021-08-10] MEDS: OXYBUTYNIN XL 15 MG TABLET PO SCH (10:08)
[2021-08-10] MEDS: AMIODARONE 200 MG TABLET PO SCH (10:08)
[2021-08-10] MEDS: allopurinoL 100 MG TABLET PO SCH ×2 (10:08→20:30)
[2021-08-10] MEDS: FUROSEMIDE 40 MG/4 ML VIAL IV SCH ×2 (10:09→17:02)
[2021-08-10] MEDS: NYSTATIN POWDER 15 GM BOTTLE TOP SCH ×2 (10:39→20:30)
[2021-08-10] MEDS: CELECOXIB 100 MG PO SCH ×2 (10:40→20:31)
[2021-08-10] MEDS ORDERED: LORazepam 0.5 MG TABLET PO PRN (11:55)
[2021-08-10 11:58] LABS: Arterial Base Excess iSTAT 8 MMOL/L (-2.5-2.5); Arterial O2 Saturation iSTAT 93 % (95-100); Arterial PCO2 iSTAT 70 MM HG (35-48); Arterial PO2 iSTAT 75 MM HG (80-95); Arterial Total CO2 iSTAT 38 MMO/L (23-27); Arterial pH iSTAT 7.322 (7.35-7.45)
[2021-08-10] MEDS ORDERED: LACTULOSE 20 GM/30 ML UDCUP PO ONE (12:16)
[2021-08-10 15:42] LABS: Arterial Base Excess iSTAT 11 MMOL/L (-2.5-2.5); Arterial Bicarbonate iSTAT 37.6 MMOL/L (20-26); Arterial O2 Saturation iSTAT 91 % (95-100); Arterial PCO2 iSTAT 66 MM HG (35-48); Arterial PO2 iSTAT 67 MM HG (80-95); Arterial Total CO2 iSTAT 40 MMO/L (23-27); Arterial pH iSTAT 7.367 (7.35-7.45)
[2021-08-10] MEDS: ATORVASTATIN 80 MG TABLET PO SCH (20:30)
[2021-08-10] MEDS: GABAPENTIN 300 MG CAPSULE PO SCH (20:30)
[2021-08-11] MEDS: ALBUTEROL 2.5 MG/3 ML NEB RESP TX SCH ×6 (03:22→23:55)
[2021-08-11] MEDS: LEVOTHYROXINE 75 MCG TABLET PO SCH (06:14)
[2021-08-11 07:56] LABS: Arterial Base Excess iSTAT 11 MMOL/L (-2.5-2.5); Arterial Bicarbonate iSTAT 37.1 MMOL/L (20-26); Arterial O2 Saturation iSTAT 96 % (95-100); Arterial PCO2 iSTAT 60 MM HG (35-48); Arterial PO2 iSTAT 87 MM HG (80-95); Arterial Total CO2 iSTAT 39 MMO/L (23-27)
[2021-08-11 08:17] LABS: Basophils # 0.1 10*3/uL (0.0-0.2); Basophils % 0.7 % (0.0-0.8); Eosinophils # 0.3 10*3/uL (0.0-0.87); Hemoglobin 8.8 GM/DL (12.0-16.0); Immature Granulocytes % 0.3 %; Immature Granulocytes Absolute 0.03 #; Lymphocytes # 2.3 10*3/uL (1.4-4.0); Lymphocytes % 24.8 % (21.3-54.2); Mean Corpuscular HGB Conc 30.3 GM/DL (32-36); Mean Corpuscular Volume 92.9 FL (87-102); Mean Platelet Volume 10.6 FL (9.6-12.0); Monocytes # 0.8 10*3/uL (0.11-0.8); Monocytes % 8.4 % (1.7-12.7); Neutrophils % 62.8 % (38.7-73.9); Platelet Count 268 T/CUMM (130-400); Red Blood Count 3.12 MC/CUMM (3.8-5.5); Red Cell Distribution Width 18.6 % (9.3-17.3); White Blood Count 9.1 T/CUMM (4-12)
[2021-08-11 08:42] LABS: Calcium 8.9 MG/DL (8.5-10.1); Osmolality,Calculated 284.5 MOS/KG (273-304); Potassium 4.6 MMOL/L (3.5-5.1)
[2021-08-11] MEDS: allopurinoL 100 MG TABLET PO SCH ×2 (09:23→20:31)
[2021-08-11] MEDS: FUROSEMIDE 40 MG/4 ML VIAL IV SCH ×2 (09:23→16:52)
[2021-08-11] MEDS: METOPROLOL SUCCINATE XL 25 MG TABLET PO SCH (09:23)
[2021-08-11] MEDS: AMIODARONE 200 MG TABLET PO SCH (09:23)
[2021-08-11] MEDS: OXYBUTYNIN XL 15 MG TABLET PO SCH (09:23)
[2021-08-11] MEDS: APIXABAN 5 MG TABLET PO SCH ×2 (09:23→20:31)
[2021-08-11] MEDS: CELECOXIB 100 MG PO SCH ×2 (11:49→20:32)
[2021-08-11] MEDS: NYSTATIN POWDER 15 GM BOTTLE TOP SCH ×2 (13:11→20:31)
[2021-08-11 13:40] LABS: Arterial Base Excess iSTAT 11 MMOL/L (-2.5-2.5); Arterial O2 Saturation iSTAT 97 % (95-100); Arterial PCO2 iSTAT 62 MM HG (35-48); Arterial PO2 iSTAT 97 MM HG (80-95); Arterial Total CO2 iSTAT 40 MMO/L (23-27); Arterial pH iSTAT 7.397 (7.35-7.45)
[2021-08-11] MEDS: ATORVASTATIN 80 MG TABLET PO SCH (20:31)
[2021-08-11] MEDS: GABAPENTIN 300 MG CAPSULE PO SCH (20:31)
[2021-08-12] MEDS: ALBUTEROL 2.5 MG/3 ML NEB RESP TX SCH ×5 (00:26→14:00)
[2021-08-12 04:59] LABS: Basophils # 0.1 10*3/uL (0.0-0.2); Basophils % 0.6 % (0.0-0.8); Eosinophils # 0.3 10*3/uL (0.0-0.87); Eosinophils % 3.8 % (0.00-10.9); Hematocrit 29.2 VOL% (35.7-47.0); Immature Granulocytes % 0.3 %; Immature Granulocytes Absolute 0.03 #; Lymphocytes # 2.5 10*3/uL (1.4-4.0); Mean Corpuscular HGB Conc 30.8 GM/DL (32-36); Mean Corpuscular Volume 92.7 FL (87-102); Mean Platelet Volume 11.5 FL (9.6-12.0); Monocytes # 0.8 10*3/uL (0.11-0.8); Monocytes % 8.8 % (1.7-12.7); Neutrophils % 58.5 % (38.7-73.9); Platelet Count 283 T/CUMM (130-400); Red Blood Count 3.15 MC/CUMM (3.8-5.5); Red Cell Distribution Width 18.3 % (9.3-17.3); White Blood Count 8.9 T/CUMM (4-12)
[2021-08-12 05:25] LABS: Calcium 8.9 MG/DL (8.5-10.1); Osmolality,Calculated 283.7 MOS/KG (273-304); Potassium 4.4 MMOL/L (3.5-5.1)
[2021-08-12] MEDS: LEVOTHYROXINE 75 MCG TABLET PO SCH (06:02)
[2021-08-12] MEDS: METOPROLOL SUCCINATE XL 25 MG TABLET PO SCH (09:35)
[2021-08-12] MEDS: APIXABAN 5 MG TABLET PO SCH (09:35)
[2021-08-12] MEDS: allopurinoL 100 MG TABLET PO SCH (09:35)
[2021-08-12] MEDS: AMIODARONE 200 MG TABLET PO SCH (09:35)
[2021-08-12] MEDS: OXYBUTYNIN XL 15 MG TABLET PO SCH (09:35)
[2021-08-12] MEDS: FUROSEMIDE 40 MG/4 ML VIAL IV SCH (09:35)
[2021-08-12] MEDS: CELECOXIB 100 MG PO SCH (09:36)
[2021-08-12] MEDS: NYSTATIN POWDER 15 GM BOTTLE TOP SCH (09:37)
[2021-08-12] MEDS ORDERED: FUROSEMIDE 40 MG TABLET PO SCH (16:00)
[2021-08-12 16:03] VITALS: BP 106/44
[2021-08-13] MEDS ORDERED: ASPIRIN EC 81 MG TABLET PO SCH (09:00)
== END 2021-08-12 19:24 | disposition home health service (06) | DRG 291 ==
LOC: N.ED 12:11 → SUATTDRO 15:49 → N.EDINP 15:49 → N.TELEN 16:44
PROVIDERS: ADMIT Internal Medicine Geriatric Medicine; ATTEND Internal Medicine